=== PATIENT | female | born 1970 | race Caucasian/White ===

== ENCOUNTER 2017-02-07 16:17 | Inpatient (IN) | payer MEDICAID ==
--- NOTE | 2017-02-07 18:34 | EDM.PDOC ---
[id number]: SHARP PAINS IN RIGHT SIDE Time Seen by Provider: 02/07/17 18:31 Source of Information: Reports: Patient History Limitations: Reports: No Limitations - History of Present Illness INITIAL COMMENTS - FREE TEXT/NARRATIVE: pt arrived with pain in the rt upper abdoman. Onset: Gradual, Other ( she has been havung pain in the abdoman for many days, ) Duration: Day(s):, Getting Worse, Other ( today was the worst pain that she has had ) Location: Reports: Abdomen Associated Symptoms: Reports: No Other Symptoms Right Upper Abdomen Pain Score (Numeric/FACES): 10 - Related Data Allergies Allergy/AdvReac Type Severity Reaction Status Date / Time morphine AdvReac Vomiting Verified 02/08/17 08:23 Home Meds: Home Meds Gabapentin [Neurontin] 100 mg PO TID 04/10/16 [History] Ibuprofen 800 mg PO ASDIRECTED 04/10/16 [History] Methylphenidate HCl [Ritalin] 20 mg PO TID 04/10/16 [History] ARIPiprazole [Abilify] 5 mg PO DAILY 07/25/16 [History] EPINEPHrine [Epinephrine] 1 injection [id number] ASDIRECTED PRN 07/25/16 [History] Estradiol 2 mg PO DAILY 07/25/16 [History] buPROPion [Wellbutrin XL] 300 mg PO DAILY 07/25/16 [History] traZODone 50 mg PO BEDTIME PRN 07/25/16 [History] Acetaminophen/HYDROcodone [[place] 325-5 MG] 1 - 2 tab PO Q6H PRN #14 tab [Rx] Nitroglycerin [Nitrostat] 0.3 mg SL ASDIRECTED PRN 02/08/17 [History] Hydrocodone/Acetaminophen [Hydrocodon-Acetaminophen 5-325] 1 each PO Q4H PRN # 20 tablet 02/09/17 [Rx] Pantoprazole Sodium [Protonix] 40 mg PO DAILY #30 tablet. 02/09/17 [Rx] Past Medical History Cardiovascular History: Reports: CAD, High Cholesterol, Hypertension, LA, Other (See Below) Other Cardiovascular History: valve problems atrial [employer] History: Reports: Dysfunctional Uterine Bleeding Musculoskeletal History: Reports: Fibromyalgia Neurological History: Reports: Migraines, MS Psychiatric History: Reports: ADD, ADHD, Anxiety, Depression Hematologic History: Reports: Other (See Below) Other Hematologic History: low WBCs unknown origin - Infectious Disease History Infectious Disease History: Reports: Chicken Pox - Past Surgical History GI Surgical History: Reports: Hernia Repair/Other Female Surgical History: Reports: Section, Hysterectomy Social & Family History - Family History Family Medical History: Noncontributory - Tobacco Use Smoking Status *Q: Never Smoker Second Hand Smoke Exposure: No - Caffeine Use Caffeine Use: Reports: Soda - Recreational Drug Use Recreational Drug Use: No - Living Situation & Occupation Living situation: Reports: Occupation: Employed [employer] - Review of Systems Review Of Systems: See Below Constitutional: Reports: Other (pt has had some chronic pain for the past few days, Todat at work she became very uncomfortable and the pain became intolerable. ) HEENT: Reports: No Symptoms Respiratory: Reports: Other (hurts to take a deep breath when she breathes deeply. ) Cardiovascular: Reports: No Symptoms Endocrine: Reports: No Symptoms GI/Abdominal: Reports: Abdominal Pain, Other (the pain was centered in the rt upper quadrant right under the rib cage. ) : Reports: No Symptoms Musculoskeletal: Reports: No Symptoms Skin: Reports: No Symptoms ED EXAM, GI/ABD - Physical Exam Exam: See Below Text/Narrative:: Pt arrived with very severe pain under the rt diaphram. She was rating her pain at a 10. Exam Limited By: No Limitations General Appearance: Alert, Anxious, Moderate Distress Eyes: Bilateral: Normal Appearance, EOMI Ears: Normal TMs Nose: Normal Inspection Throat/Mouth: Normal Inspection Head: Atraumatic Neck: Normal Inspection Respiratory/Chest: No Respiratory Distress Cardiovascular: Regular Rate, Rhythm GI/Abdominal: Other ( pt is very tender in the rt upper quadrant. No masses are present. ) (Female) Exam: Deferred Rectal (Female) Exam: Deferred Back Exam: Normal Inspection Extremities: Normal Inspection Neurological: Alert, Oriented, Normal Cognition Psychiatric: Normal Affect Course - Vital Signs Last Recorded V/S: Last Vital Signs Temp 36.7 C 02/09/17 10:15 Pulse 65 02/09/17 10:45 Resp 18 02/09/17 10:45 BP 118/68 02/09/17 10:45 Pulse Ox 96 02/09/17 10:45 - Orders/Labs/Meds Labs: Laboratory Tests 0602/07/17 02/07/17 Range/Units 18:31 18:31 18:31 WBC 5.3 (4.5-11.0) K/uL RBC 3.85 (3.30-5.50) M/uL Hgb 10.5 L (12.0-15.0) g/dL Hct 33.9 L (36.0-48.0) % MCV 88 (80-98) fL MCH 27 (27-31) pg MCHC 31 L (32-36) % Plt Count 279 (150-400) K/uL Neut % (Auto) 53 (36-66) % Lymph % (Auto) 29 (24-44) % [place] % (Auto) 10 H (2-6) % Eos % (Auto) 7 H (2-4) % Baso % (Auto) 1 (0-1) % D-Dimer, Quantitative (0.0-400.0) ng/mL Sodium 144 (140-148) mmol/L Potassium 3.7 (3.6-5.2) mmol/L Chloride 107 (100-108) mmol/L Carbon Dioxide 29 (21-32) mmol/L Anion Gap 8.4 (5.0-14.0) mmol/L BUN 14 (7-18) mg/dL Creatinine 1.1 H (0.6-1.0) mg/dL Est Cr Clr Drug Dosing TNP Estimated GFR (MDRD) 54 L (>60) Glucose 76 (74-106) mg/dL Calcium 8.5 (8.5-10.1) mg/dL Total Bilirubin 0.2 (0.2-1.0) mg/dL AST 12 L (15-37) U/L ALT 12 (12-78) U/L Alkaline Phosphatase 113 (46-116) U/L C-Reactive Protein 2.92 H (0.0-0.3) mg/dL Total Protein 7.6 (6.4-8.2) g/dL Albumin 3.1 L (3.4-5.0) g/dL Globulin 4.5 H (2.3-3.5) g/dL Albumin/Globulin Ratio 0.7 L (1.2-2.2) Lipase 145 (73-393) U/L Urine Color Urine Appearance Urine pH (4.5-8.0) Ur Specific [place] (1.008-1.030) Urine Protein (NEGATIVE) mg/dL Urine Glucose (UA) (NEGATIVE) mg/dL Urine Ketones (NEGATIVE) mg/dL Urine Occult Blood (NEGATIVE) Urine Nitrite (NEGATIVE) Urine Bilirubin (NEGATIVE) Urine Urobilinogen (NORMAL) mg/dL Ur Leukocyte Esterase (NEGATIVE) Urine RBC (0-5) Urine WBC (0-5) Ur Epithelial Cells Amorphous Sediment Urine Bacteria Urine Mucus 02/07/17 02/07/17 Range/Units 19:25 22:30 WBC (4.5-11.0) K/uL RBC (3.30-5.50) M/uL Hgb (12.0-15.0) g/dL Hct (36.0-48.0) % MCV (80-98) fL MCH (27-31) pg MCHC (32-36) % Plt Count (150-400) K/uL Neut % (Auto) (36-66) % Lymph % (Auto) (24-44) % Pine % (Auto) (2-6) % Eos % (Auto) (2-4) % Baso % (Auto) (0-1) % D-Dimer, Quantitative 2400 H (0.0-400.0) ng/mL Sodium (140-148) mmol/L Potassium (3.6-5.2) mmol/L Chloride (100-108) mmol/L Carbon Dioxide (21-32) mmol/L Anion Gap (5.0-14.0) mmol/L BUN (7-18) mg/dL Creatinine (0.6-1.0) mg/dL Est Cr Clr Drug Dosing Estimated GFR (MDRD) (>60) Glucose (74-106) mg/dL Calcium (8.5-10.1) mg/dL Total Bilirubin (0.2-1.0) mg/dL AST (15-37) U/L ALT (12-78) U/L Alkaline Phosphatase (46-116) U/L C-Reactive Protein (0.0-0.3) mg/dL Total Protein (6.4-8.2) g/dL Albumin (3.4-5.0) g/dL Globulin (2.3-3.5) g/dL Albumin/Globulin Ratio (1.2-2.2) Lipase (73-393) U/L Urine Color Yellow Urine Appearance Clear Urine pH 6.5 (4.5-8.0) Ur Specific [place] 1.015 (1.008-1.030) Urine Protein Negative (NEGATIVE) mg/dL Urine Glucose (UA) Normal (NEGATIVE) mg/dL Urine Ketones Negative (NEGATIVE) mg/dL Urine Occult Blood Moderate (NEGATIVE) Urine Nitrite Negative (NEGATIVE) Urine Bilirubin Negative (NEGATIVE) Urine Urobilinogen Normal (NORMAL) mg/dL Ur Leukocyte Esterase Negative (NEGATIVE) Urine RBC 0-5 (0-5) Urine WBC 0-5 (0-5) Ur Epithelial Cells Few Amorphous Sediment Not seen Urine Bacteria Moderate Urine Mucus Rare Meds: Medications Discontinued Medications Generic Name Dose Route Start Last Admin Trade Name Freq PRN Reason Stop Dose Admin Acetaminophen 650 mg 02/08/17 02:40 02/08/17 21:39 Tylenol PO 650 mg Q4H PRN Administration Pain (Mild 1-3)/fever Albuterol 2.5 mg 02/08/17 02:40 Proventil Neb Soln NEB Q4H PRN Shortness Of Breath/wheezing Aripiprazole 5 mg 02/08/17 09:00 02/09/17 10:13 Abilify PO 5 mg DAILY DERICK Administration Bupropion HCl 300 mg 02/08/17 09:00 02/09/17 10:13 Wellbutrin Xl PO 300 mg DAILY DERICK Administration Dexamethasone Confirm 02/09/17 08:40 Dexamethasone Administered 02/09/17 08:41 Dose 4 mg .ROUTE .STK-MED ONE Docusate Sodium 100 mg 02/08/17 02:40 Colace PO BID PRN Constipation Estradiol 2 mg 02/08/17 09:00 02/09/17 10:12 Estradiol PO 2 mg DAILY DERICK Administration Fentanyl Confirm 02/09/17 08:27 Sublimaze Administered 02/09/17 08:28 Dose 100 mcg .ROUTE .STK-MED ONE Fentanyl Citrate 0 mcg 02/08/17 09:18 Fentanyl In Ns 20 Mcg/Ml 30 Ml Nursery Hand IV ASDIRECTED PRN Pain Protocol Gabapentin 100 mg 02/08/17 09:00 02/09/17 10:13 Neurontin PO 100 mg TID DERICK Administration Hydromorphone HCl 0.5 mg 02/07/17 18:42 02/07/17 19:27 Dilaudid IVPUSH 02/07/17 18:43 0.5 mg ONETIME ONE Administration Hydromorphone HCl Confirm 02/07/17 19:21 02/08/17 07:34 Dilaudid Administered 02/07/17 19:22 Not Given Dose 1 mg .ROUTE .STK-MED ONE Hydromorphone HCl 0.05 mg 02/07/17 20:44 02/07/17 21:07 Dilaudid IVPUSH 02/07/17 20:45 Not Given ONETIME ONE Hydromorphone HCl 0.5 mg 02/07/17 21:01 02/07/17 21:04 Dilaudid IVPUSH 02/07/17 21:02 0.5 mg ONETIME ONE Administration Hydromorphone HCl 0.5 mg 02/07/17 23:43 02/07/17 23:52 Dilaudid IVPUSH 02/07/17 23:44 0.5 mg ONETIME ONE Administration Hydromorphone HCl 0 mg 02/08/17 02:40 02/08/17 03:29 Dilaudid Nursery Hand 15 Mg In Ns 30 Ml IV 15 mg ASDIRECTED PRN Administration Pain Protocol Sodium Chloride 1,000 mls @ 999 mls/hr 02/07/17 18:45 02/07/17 19:26 Normal Saline IV 999 mls/hr ASDIRECTED DERICK Administration Sodium Chloride 1,000 mls @ 250 mls/hr 02/07/17 20:45 02/07/17 20:59 Normal Saline IV 250 mls/hr ASDIRECTED DERICK Administration Sodium Chloride 80 mls @ 3 mls/sec 02/07/17 21:15 02/07/17 21:23 Normal Saline IV 3 mls/sec ASDIRECTED DERICK Administration Sodium Chloride 100 mls @ 4 mls/sec 02/08/17 00:07 02/08/17 00:17 Normal Saline IV 02/08/17 00:08 4 mls/sec ASDIRECTED STA Administration Sodium Chloride 1,000 mls @ 999 mls/hr 02/08/17 01:15 02/08/17 01:21 Normal Saline IV 999 mls/hr ASDIRECTED DERICK Administration Sodium Chloride 1,000 mls @ 125 mls/hr 02/08/17 02:40 02/08/17 03:13 Normal Saline IV 125 mls/hr ASDIRECTED DERICK Administration Sodium Chloride 1,000 mls @ 75 mls/hr 02/08/17 15:45 Normal Saline IV ASDIRECTED DERICK Iopamidol 123 ml 02/07/17 21:15 02/07/17 21:23 Isovue-300 (61%) IV 123 ml . DIRECTED DERICK Administration Iopamidol 100 ml 02/08/17 00:07 02/08/17 00:17 Isovue-370 (76%) IV 02/08/17 00:08 100 ml . DIRECTED STA Administration Lorazepam 1 mg 02/08/17 02:40 02/08/17 06:25 Ativan IV 1 mg Q6H PRN Administration Nausea/Vomiting/anxiety Lorazepam 1 mg 02/08/17 06:04 Ativan IVPUSH Q6H PRN Anxiety Metoprolol Succinate 25 mg 02/08/17 02:40 Toprol Xl PO ASDIRECTED [facility] Midazolam HCl Confirm 02/09/17 08:28 Versed 1 Mg/Ml Administered 02/09/17 08:29 Dose 2 mg .ROUTE .STK-MED ONE Naloxone HCl 0.4 mg 02/08/17 02:40 Narcan IVPUSH Q2M PRN Respiratory Distress Naloxone HCl 0.4 mg 02/08/17 09:18 Narcan IVPUSH Q2M PRN Respiratory Distress Nitroglycerin 0.4 mg 02/08/17 09:14 Nitrostat SL 02/08/17 09:25 Q5M PRN Chest Pain Non-Formulary Medication 0.3 mg 02/08/17 16:00 Nitroglycerin [Nitrostat] [facility] Ondansetron HCl 4 mg 02/07/17 18:42 02/07/17 19:27 Zofran IVPUSH 02/07/17 18:43 4 mg ONETIME ONE Administration Ondansetron HCl 4 mg 02/07/17 22:29 02/07/17 22:38 Zofran IVPUSH 02/07/17 22:30 4 mg ONETIME ONE Administration Ondansetron HCl 4 mg 02/08/17 02:40 Zofran Odt PO Q6H PRN Nausea able to take PO Ondansetron HCl 4 mg 02/08/17 02:40 02/08/17 07:36 Zofran IV 4 mg Q4H PRN Administration Nausea/Vomiting Ondansetron HCl Confirm 02/09/17 08:40 Zofran Administered 02/09/17 08:41 Dose 4 mg .ROUTE .STK-MED ONE Pantoprazole Sodium 40 mg 02/08/17 09:00 02/08/17 08:57 Protonix Iv IV 40 mg DAILY DERICK Administration Pantoprazole Sodium 40 mg 02/08/17 21:00 02/09/17 09:34 Protonix Iv IV 40 mg Q12H DERICK Administration Propofol Confirm 02/09/17 08:28 Diprivan 20 Ml Administered 02/09/17 08:29 Dose 200 mg .ROUTE .STK-MED ONE Rivaroxaban 10 mg 02/08/17 09:00 02/08/17 08:46 Xarelto PO Not Given DAILY DERICK Trazodone HCl 50 mg 02/08/17 02:40 Trazodone PO BEDTIME PRN Sleep Zolpidem Tartrate 5 mg 02/08/17 02:40 Ambien PO BEDTIME PRN Sleep - Re-Assessments/Exams Free Text/Narrative Re-Assessment/Exam: 02/08/17 01:27 pt was at work today and she developed severe rt upper abdomanal pain. On arrival she was rating the pain a 10. She had a us of the gb and this appeared neg. She had a cat scan of the abdoman which showed a rt pleural effusion a irregular rounded density in the rt lower lobe. There is some rt basilar scarring. The abdoman otherwie appeared neg. A cat scan of the lung did not show pe. It did show the left pleural effusion. Her wbc was not elevated. Her hg was 10.5. Her crp is nearly 3.0. Departure - Departure Time of Disposition: 01:37 Disposition: Admitted As Inpatient 68 Condition: Fair Clinical Impression: Right upper quadrant abdominal pain, Pleural effusion, Anemia - Discharge Information
[2017-02-07] MEDS ORDERED: Ondansetron 4 MG/2 ML SDV IVPUSH ONE ×2 (18:42→22:29)
[2017-02-07] MEDS ORDERED: Sodium Chloride 0.9% 1,000 ML IV SCH ×2 (18:45→20:45)
[2017-02-07] MEDS: HYDROmorphone 1 MG/ML Syringe ONE (19:27)
[2017-02-07] MEDS: HYDROmorphone 0.5 MG/0.5 ML Syringe IVPUSH ONE ×2 (19:27→19:28)
[2017-02-07] MEDS ORDERED: HYDROmorphone 1 MG/ML Syringe IVPUSH ONE ×2 (20:44→23:43)
[2017-02-07] MEDS ORDERED: HYDROmorphone 0.5 MG/0.5 ML Syringe IVPUSH ONE (21:01)
[2017-02-07] MEDS ORDERED: Iopamidol 612 MG/ML 150 ML Bottle IV SCH (21:15)
[2017-02-07] MEDS ORDERED: Sodium Chloride 0.9% 80 ML IV SCH (21:15)
[2017-02-08] MEDS ORDERED: Sodium Chloride 0.9% 100 ML IV STA (00:07)
[2017-02-08] MEDS ORDERED: Iopamidol 755 Mg/ML 100 ML Bottle IV STA (00:07)
[2017-02-08] MEDS ORDERED: Sodium Chloride 0.9% 1,000 ML IV SCH ×3 (01:15→15:45)
[2017-02-08] MEDS ORDERED: Albuterol 0.083% 2.5 MG/3 ML Neb Soln NEB PRN (02:40)
[2017-02-08] MEDS ORDERED: Zolpidem 5 MG Tab PO PRN (02:40)
[2017-02-08] MEDS ORDERED: Docusate Sodium 100 MG Cap PO PRN (02:40)
[2017-02-08] MEDS ORDERED: HYDROmorphone/Normal Saline 15 MG/30 ML PCA IV PRN (02:40)
[2017-02-08] MEDS ORDERED: Naloxone 0.4 MG/ML SDV IVPUSH PRN ×2 (02:40→09:18)
[2017-02-08] MEDS ORDERED: Ondansetron 4 MG Tab.DIS PO PRN (02:40)
[2017-02-08] MEDS ORDERED: traZODone 50 MG Tab PO PRN (02:40)
[2017-02-08] MEDS ORDERED: Metoprolol Succinate 25 MG Tab.ER PO SCH (02:40)
[2017-02-08] MEDS ORDERED: LORazepam 2 MG/ML MDV IV PRN (02:40)
[2017-02-08] MEDS: Ondansetron 4 MG/2 ML SDV IV PRN ×2 (03:13→07:36)
--- NOTE | 2017-02-08 03:23 | PCM.HP ---
H&P History of Present Illness - General Date of Service: 02/07/17 Admit Problem/Dx: Admission Diagnosis/Problem Admission Diagnosis/Problem Abdominal pain Source of Information: Patient, Provider, RN History Limitations: Reports: No Limitations - History of Present Illness Initial Comments - Free Text/Narative: right sided abdominal pain; this is a 46 year old female who reports a sudden onset of right upper abdominal pain. She had a CT scan of abdomen-pelvis which is negative, CT angio of chest negative, labs no acute result. Due to abdominal pain , Mrs. Tara Read will be admitted for Iv fluids, pain management and further monitoring. Patient is agreement with plan of care. Onset of Symptoms: Reports: Today, Sudden Duration of Symptoms: Reports: Constant Location: Reports: Abdomen, Generalized Quality: Reports: Sharp, Stabbing Severity: Severe Improves with: Reports: Medication Worsens with: Reports: None Associated Symptoms: Reports: No Other Symptoms Right Upper Abdomen Pain Score (Numeric/FACES): 10 - Related Data Allergies/Adverse Reactions: Allergies Allergy/AdvReac Type Severity Reaction Status Date / Time morphine Allergy Vomiting Verified 04/10/16 13:14 Home Medications: Home Meds Aspirin [Ecotrin] 81 mg PO DAILY 04/10/16 [History] Gabapentin [Neurontin] 100 mg PO TID 04/10/16 [History] Ibuprofen 800 mg PO ASDIRECTED 04/10/16 [History] Methylphenidate HCl [Ritalin] 20 mg PO TID 04/10/16 [History] Rivaroxaban [Xarelto] 10 mg PO DAILY 04/10/16 [History] ARIPiprazole [Abilify] 5 mg PO DAILY 07/25/16 [History] EPINEPHrine [Epinephrine] 1 injection [id number] ASDIRECTED PRN 07/25/16 [History] Estradiol 2 mg PO DAILY 07/25/16 [History] Metoprolol Succinate [Toprol XL] 25 mg PO ASDIRECTED 07/25/16 [History] Nitroglycerin [Nitrostat] 0.3 mg SL ACDINNER 07/25/16 [History] buPROPion [Wellbutrin XL] 300 mg PO DAILY 07/25/16 [History] traZODone 50 mg PO ASDIRECTED PRN 07/25/16 [History] Acetaminophen/HYDROcodone [[place] 325-5 MG] 1 - 2 tab PO Q6H PRN #14 tab [Rx] Past Medical History Cardiovascular History: Reports: CAD, High Cholesterol, Hypertension, [place], Other (See Below) Other Cardiovascular History: valve problems 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: Dysfunctional 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 Bleeding Musculoskeletal History: Reports: Fibromyalgia Neurological History: Reports: Migraines, MS Psychiatric History: Reports: ADD, ADHD, Anxiety, Depression Hematologic History: Reports: Other (See Below) Other Hematologic History: low WBCs unknown origin - Infectious Disease History Infectious Disease History: Reports: Chicken Pox - Past Surgical History HEENT Surgical History: Reports: None GI Surgical History: Reports: Hernia Repair/Other Female Surgical History: Reports: Section, Hysterectomy Social & Family History - Family History Family Medical History: Noncontributory - Tobacco Use Smoking Status *Q: Never Smoker Second Hand Smoke Exposure: No - Caffeine Use Caffeine Use: Reports: Soda - Recreational Drug Use Recreational Drug Use: No - Living Situation & Occupation Living situation: Reports: Occupation: Employed H&P Review of Systems - Review of Systems: Review Of Systems: See Below General: Reports: No Symptoms HEENT: Reports: No Symptoms Pulmonary: Reports: No Symptoms Cardiovascular: Reports: No Symptoms Gastrointestinal: Reports: Abdominal Pain Genitourinary: Reports: No Symptoms Musculoskeletal: Reports: No Symptoms Skin: Reports: No Symptoms Psychiatric: Reports: No Symptoms Neurological: Reports: No Symptoms Hematologic/Lymphatic: Reports: No Symptoms Immunologic: Reports: No Symptoms Exam - Exam Exam: See Below - Vital Signs Vital Signs: Last Vital Signs Temp 36.5 C 02/08/17 02:39 Pulse 77 02/08/17 02:39 Resp 18 02/08/17 02:39 BP 109/63 02/08/17 02:39 Pulse Ox 94 L 02/08/17 00:10 Weight: 96.026 kg - Exam General: Alert, Oriented, 4 HEENT: PERRLA, Hearing Intact, Mucosa Moist & [place], Nares Patent, Normal Nasal Septum, Posterior Pharynx Clear, Conjunctiva Clear, EOMI, EACs Clear, TMs Clear Neck: Supple, Trachea Midline, 2 Lungs: Clear to Auscultation, Normal Respiratory Effort Cardiovascular: Regular Rate, Regular Rhythm Abdomen: Normal Bowel Sounds, Soft, Tenderness (right upper quadrant) (Female) Exam: Deferred Rectal (Female) Exam: Deferred Back Exam: Normal Inspection, Full Range of Motion, NT Extremities: 3, Normal Inspection, 10 Skin: Warm, Dry, Intact Neurological: Cranial Nerves Intact, Reflexes Equal Bilateral Neuro Extensive - Mental Status: Alert, Oriented x3, Normal Mood/Affect, Normal Cognition Neuro Extensive - Motor, Sensory, Reflexes: CN II-XII Intact, Normal Gait, Normal Reflexes Psychiatric: Alert, Normal Affect, Normal Mood - Patient Data Lab Results Last 24 hrs: Laboratory Results - last 24 hr 02/08/17 Range/Units 02:40 Urine Opiates Screen Negative (NEGATIVE) Ur Oxycodone Screen Negative (NEGATIVE) Urine Methadone Screen Negative (NEGATIVE) Ur Propoxyphene Screen Negative (NEGATIVE) Ur Barbiturates Screen Negative (NEGATIVE) Ur Tricyclics Screen Negative (NEGATIVE) Ur Phencyclidine Scrn Negative (NEGATIVE) Ur Amphetamine Screen Negative (NEGATIVE) U Methamphetamines Scrn Negative (NEGATIVE) Urine MDMA Screen Negative (NEGATIVE) U Benzodiazepines Scrn Negative (NEGATIVE) U Cocaine Metab Screen Negative (NEGATIVE) U Marijuana (THC) Screen Negative (NEGATIVE) Result Diagrams: 02/07/17 18:31 02/07/17 18:31 *Q Meaningful Use (ADM) - VTE *Q VTE Criteria *Q: - Stroke *Q Stroke Criteria *Q: - AMI *Q AMI Criteria *Q: - Problem List (1) Pleural effusion SNOMED Code(s): 15451904 ICD Code: J90 - PLEURAL EFFUSION, NOT ELSEWHERE CLASSIFIED Status: Acute Priority: Medium Current Visit: Yes (2) Right upper quadrant abdominal pain SNOMED Code(s): 986171810 ICD Code: R10.11 - RIGHT UPPER QUADRANT PAIN Status: Acute Priority: High Current Visit: Yes Problem List Initiated/Reviewed/Updated: Yes Orders Last 24hrs: Active Orders 24 hr Category Date Time Status Patient Status [ADT] Routine ADT 02/08/17 02:40 Active Communication Order [RC] STAT Care 02/08/17 02:40 Active Intake and Output [RC] QSHIFT Care 02/08/17 02:40 Active Notify Provider Vital Signs [RC] ASDIRECTED Care 02/08/17 02:40 Active Notify Provider [RC] PRN Care 02/08/17 02:40 Active Oxygen Therapy [RC] PRN Care 02/08/17 02:40 Active ARMHOLE SEWER Record [RC] PER UNIT ROUTINE Care 02/08/17 02:40 Active Pulse Oximetry [RC] CONTINUOUS Care 02/08/17 02:40 Active RT Aerosol Therapy [RC] ASDIRECTED Care 02/08/17 02:40 Active Up ad Helen [RC] ASDIRECTED Care 02/08/17 02:40 Active VTE/DVT Education [RC] Per Unit Routine Care 02/08/17 02:40 Active Vital Signs [RC] Q4H Care 02/08/17 02:40 Active OT Evaluation and Treatment [CONS] Routine Cons 02/08/17 02:40 Active Regular Diet [DIET] Diet 02/08/17 Breakfast Active BASIC METABOLIC PANEL,BMP [CHEM] AM Lab 02/08/17 05:11 Ordered CBC WITH AUTO DIFF [HEME] AM Lab 02/08/17 05:11 Ordered LACTIC ACID [CHEM] AM Lab 02/08/17 05:11 Ordered ARIPiprazole [Abilify] Med 02/08/17 09:00 Ordered 5 mg PO DAILY Acetaminophen [Tylenol] Med 02/08/17 02:40 Active 650 mg PO Q4H PRN Albuterol [Proventil Neb Soln] Med 02/08/17 02:40 Active 2.5 mg NEB Q4H PRN Docusate Sodium [Colace] Med 02/08/17 02:40 Active 100 mg PO BID PRN Estradiol [Estradiol] Med 02/08/17 09:00 Ordered 2 mg PO DAILY Gabapentin [Neurontin] Med 02/08/17 09:00 Ordered 100 mg PO TID HYDROmorphone/Normal Saline [Dilaudid ARMHOLE SEWER 15 MG in NS Med 02/08/17 02:40 Active 30 ML] See Protocol IV ASDIRECTED PRN LORazepam [Ativan] Med 02/08/17 02:40 Active 1 mg IV Q6H PRN Metoprolol Succinate [Toprol XL] Med 02/08/17 02:40 Pending 25 mg PO ASDIRECTED Naloxone [Narcan] Med 02/08/17 02:40 Active 0.4 mg IVPUSH Q2M PRN Nitroglycerin [Nitrostat] Med 02/08/17 16:00 Pending 0.3 mg SL ACDINNER Ondansetron [Zofran ODT] Med 02/08/17 02:40 Active 4 mg PO Q6H PRN Ondansetron [Zofran] Med 02/08/17 02:40 Active 4 mg IV Q4H PRN Pantoprazole [ProTONIX IV] Med 02/08/17 09:00 Active 40 mg IV DAILY Rivaroxaban [Xarelto] Med 02/08/17 09:00 Ordered 10 mg PO DAILY Sodium Chloride 0.9% [Normal Saline] 1,000 ml Med 02/08/17 02:40 Active IV ASDIRECTED Zolpidem [Ambien] Med 02/08/17 02:40 Active 5 mg PO BEDTIME PRN buPROPion [Wellbutrin XL] Med 02/08/17 09:00 Ordered 300 mg PO DAILY traZODone Med 02/08/17 02:40 Pending 50 mg PO ASDIRECTED PRN Medication Discontinuation Instructions [OM.PC] Stat Oth 02/08/17 02:40 Ordered Sequential Compression Device [OM.PC] Per Unit Routine Oth 02/08/17 02:40 Ordered Resuscitation Status Routine Resus Stat 02/08/17 02:00 Ordered Medication Orders Acetaminophen (Tylenol) 650 mg PO Q4H PRN PRN Reason: Pain (Mild 1-3)/fever Albuterol (Proventil Neb Soln) 2.5 mg NEB Q4H PRN PRN Reason: Shortness Of Breath/wheezing Docusate Sodium (Colace) 100 mg PO BID PRN PRN Reason: Constipation Gabapentin (Neurontin) 100 mg PO TID [facility] Hydromorphone HCl (Dilaudid Arts Education Teacher 15 Mg In Ns 30 Ml) 0 mg IV ASDIRECTED PRN; Protocol PRN Reason: Pain Sodium Chloride (Normal Saline) 1,000 mls @ 125 mls/hr IV ASDIRECTED [facility] Last Admin: 02/08/17 03:13 Dose: 125 mls/hr Lorazepam (Ativan) 1 mg IV Q6H PRN PRN Reason: Nausea/Vomiting Metoprolol Succinate (Toprol Xl) 25 mg PO ASDIRECTED [facility] Naloxone HCl (Narcan) 0.4 mg IVPUSH Q2M PRN PRN Reason: Respiratory Distress Non-Formulary Medication (Aripiprazole [Abilify]) 5 mg PO DAILY [facility] Non-Formulary Medication (Estradiol [Estradiol]) 2 mg PO DAILY [facility] Non-Formulary Medication (Nitroglycerin [Nitrostat]) 0.3 mg SL ACDINNER [facility] Non-Formulary Medication (Bupropion [Wellbutrin Xl]) 300 mg PO DAILY [facility] Ondansetron HCl (Zofran Odt) 4 mg PO Q6H PRN PRN Reason: Nausea able to take PO Ondansetron HCl (Zofran) 4 mg IV Q4H PRN PRN Reason: Nausea/Vomiting Last Admin: 02/08/17 03:13 Dose: 4 mg Pantoprazole Sodium (Protonix Iv) 40 mg IV DAILY [facility] Rivaroxaban (Xarelto) 10 mg PO DAILY [facility] Trazodone HCl (Trazodone) 50 mg PO ASDIRECTED PRN PRN Reason: Sleep Zolpidem Tartrate (Ambien) 5 mg PO BEDTIME PRN PRN Reason: Sleep Assessment/Plan Comment:: Assessment and plan of care: right sided abdominal pain; this is a 46 year old female who reports a sudden onset of right upper abdominal pain. She had a CT scan of abdomen-pelvis which is negative, CT angio of chest negative, labs no acute result. Due to abdominal pain , Mrs. Tara Read will be admitted for Iv fluids, pain management and further monitoring. Patient is agreement with plan of care. Plan Abdominal pain; right upper quadrant -Admit to [address] [place] [address] for further monitoring -IV Fluids for rehydration NS at 125 mL per hour -Dilaudid ARMHOLE SEWER for pain control -Advise to notify nurses of any chest pain or other symptoms -blood cultures x2 pending -And a.m. labs: CBC, BMP, lactic acid. Maintenance issues -Orders home meds: -Nutrition: Regular diet -Villegas catheter not indicated at this time -DVT: SCD -PPI; IV Protonix 40mg daily CODE STATUS: Full Admission status: Admit to [address] [place] [address] Admission justification. This patient will be admitted for inpatient services and is medically appropriate meeting medical necessity for inpatient admission as outlined in my documentation. I reasonably expect the patient will require inpatient services that span. Time over 2 midnights. I reasonably expect this patient to be discharged or transferred within 96 hours after admission to the critical access hospital. Disposition; home Primary care provider: [place], [place].
[2017-02-08] MEDS ORDERED: LORazepam 2 MG/ML MDV IVPUSH PRN (06:04)
[2017-02-08] MEDS: HYDROmorphone 1 MG/ML Syringe ONE (07:34)
--- NOTE | 2017-02-08 07:45 | PCM.SN ---
- Free Text/Narrative Note: time 5:58 am concerns of nausea, request different anti-nausea medication a; nausea p; order IV Ativan 1 mg every 6 hour prn. continue present plan of care
[2017-02-08] MEDS: Gabapentin 100 MG Cap PO SCH ×3 (08:46→21:39)
[2017-02-08] MEDS: buPROPion 150 MG Tab.ER PO SCH (08:46)
[2017-02-08] MEDS: Estradiol 0.5 MG Tab PO SCH (08:46)
[2017-02-08] MEDS: ARIPiprazole 10 MG Tab PO SCH (08:46)
--- NOTE | 2017-02-08 08:49 | CR ---
Chest 2V INDICATION: pain in rt chest FINDINGS: Comparison 07/25/2016. New small right pleural effusion has developed since 07/25/2016. Mi ld infiltrate or atelectasis in the right lower lung medially. Correlate with CT report.
--- NOTE | 2017-02-08 08:50 | US ---
Abdomen Ltd INDICATION: pain in rt upper abdoman. FINDINGS: Normal hepatic echotexture. No intra- or extrahepatic bile duct dilatation. The gallbladde r is normal. Aorta and IVC are normal where visualized. Pancreas is normal where seen. Survey views of the right kidney are negative for hydronephrosis. IMPRESSION: Negative right upper quadrant ultrasound.
[2017-02-08] MEDS ORDERED: Rivaroxaban 10 MG Tab PO SCH (09:00)
[2017-02-08] MEDS ORDERED: Pantoprazole 40 MG Vial IV SCH (09:00)
[2017-02-08] MEDS ORDERED: Nitroglycerin 0.4 MG Tab.SL SL PRN (09:14)
[2017-02-08] MEDS ORDERED: fentaNYL/Normal Saline 600 MCG/30 ML PCA Vial IV PRN (09:18)
[2017-02-08] MEDS: Acetaminophen 325 MG Tab PO PRN ×2 (10:53→21:39)
--- NOTE | 2017-02-08 15:52 | PCM.PN ---
- General Info Date of Service: 02/08/17 Functional Status: Reports: pain controlled, ambulating, urinating - Review of Systems General: Denies: Fever, Weakness, Chills Pulmonary: Reports: no symptoms Cardiovascular: Reports: No Symptoms Gastrointestinal: Reports: Abdominal pain, Nausea, Vomiting. Denies: Diarrhea, Difficulty swallowing Systems Review Comment:: Ms. Pacheco is a 46-year-old woman was admitted through the emergency department last night for further evaluation and management of right upper quadrant abdominal pain associated with nausea and vomiting. Pain is been present over the past several months occurring several times a week. Pain is described as a sharp pain occurring in the right upper quadrant of her abdomen does not radiate and when it occurs usually lasts for a period of 2 hours. She has been unable to relate the pain to eating activity or position. She has noted no real precipitating or relieving factors. It has improved since admission but not resolved, she is had some ongoing difficulty with nausea and vomiting felt to be related to the Dilaudid for pain. CT scan of the abdomen as well as abdominal ultrasound are negative as to the underlying etiology of her pain. - Patient Data Vitals - most recent: Last Vital Signs Temp 97.7 F 02/08/17 14:28 Pulse 70 02/08/17 14:28 Resp 18 02/08/17 14:28 BP 112/62 02/08/17 14:28 Pulse Ox 95 02/08/17 14:28 Weight - most recent: 211 lb 11.217 oz I&O - last 24 hours: Intake & Output 02/08/17 02/08/17 02/08/17 06:59 14:59 22:59 Intake Total 319 Output Total 650 300 Balance -331 -300 Lab Results last 24 hrs: Laboratory Results - last 24 hr 02/08/17 02/08/17 02/08/17 Range/Units 02:40 05:11 05:11 WBC 4.8 (4.5-11.0) K/uL RBC 3.63 (3.30-5.50) M/uL Hgb 10.0 L (12.0-15.0) g/dL Hct 32.1 L (36.0-48.0) % MCV 88 (80-98) fL MCH 28 (27-31) pg MCHC 31 L (32-36) % Plt Count 235 (150-400) K/uL Neut % (Auto) 57 (36-66) % Lymph % (Auto) 24 (24-44) % [place] % (Auto) 11 H (2-6) % Eos % (Auto) 8 H (2-4) % Baso % (Auto) 1 (0-1) % Sodium 145 (140-148) mmol/L Potassium 3.9 (3.6-5.2) mmol/L Chloride 111 H (100-108) mmol/L Carbon Dioxide 27 (21-32) mmol/L Anion Gap 10.9 (5.0-14.0) mmol/L BUN 9 (7-18) mg/dL Creatinine 1.0 (0.6-1.0) mg/dL Est Cr Clr Drug Dosing 72.42 mL/min Estimated GFR (MDRD) > 60 (>60) Glucose 105 (74-106) mg/dL Lactic Acid (0.4-2.0) mmol/L Calcium 7.8 L (8.5-10.1) mg/dL Urine Opiates Screen Negative (NEGATIVE) Ur Oxycodone Screen Negative (NEGATIVE) Urine Methadone Screen Negative (NEGATIVE) Ur Propoxyphene Screen Negative (NEGATIVE) Ur Barbiturates Screen Negative (NEGATIVE) Ur Tricyclics Screen Negative (NEGATIVE) Ur Phencyclidine Scrn Negative (NEGATIVE) Ur Amphetamine Screen Negative (NEGATIVE) U Methamphetamines Scrn Negative (NEGATIVE) Urine MDMA Screen Negative (NEGATIVE) U Benzodiazepines Scrn Negative (NEGATIVE) U Cocaine Metab Screen Negative (NEGATIVE) U Marijuana (THC) Screen Negative (NEGATIVE) 02/08/17 Range/Units 05:11 WBC (4.5-11.0) K/uL RBC (3.30-5.50) M/uL Hgb (12.0-15.0) g/dL Hct (36.0-48.0) % MCV (80-98) fL MCH (27-31) pg MCHC (32-36) % Plt Count (150-400) K/uL Neut % (Auto) (36-66) % Lymph % (Auto) (24-44) % [place] % (Auto) (2-6) % Eos % (Auto) (2-4) % Baso % (Auto) (0-1) % Sodium (140-148) mmol/L Potassium (3.6-5.2) mmol/L Chloride (100-108) mmol/L Carbon Dioxide (21-32) mmol/L Anion Gap (5.0-14.0) mmol/L BUN (7-18) mg/dL Creatinine (0.6-1.0) mg/dL Est Cr Clr Drug Dosing mL/min Estimated GFR (MDRD) (>60) Glucose (74-106) mg/dL Lactic Acid 0.4 (0.4-2.0) mmol/L Calcium (8.5-10.1) mg/dL Urine Opiates Screen (NEGATIVE) Ur Oxycodone Screen (NEGATIVE) Urine Methadone Screen (NEGATIVE) Ur Propoxyphene Screen (NEGATIVE) Ur Barbiturates Screen (NEGATIVE) Ur Tricyclics Screen (NEGATIVE) Ur Phencyclidine Scrn (NEGATIVE) Ur Amphetamine Screen (NEGATIVE) U Methamphetamines Scrn (NEGATIVE) Urine MDMA Screen (NEGATIVE) U Benzodiazepines Scrn (NEGATIVE) U Cocaine Metab Screen (NEGATIVE) U Marijuana (THC) Screen (NEGATIVE) Med Orders - Current: Current Medications Acetaminophen (Tylenol) 650 mg PO Q4H PRN PRN Reason: Pain (Mild 1-3)/fever Last Admin: 02/08/17 10:53 Dose: 650 mg Albuterol (Proventil Neb Soln) 2.5 mg NEB Q4H PRN PRN Reason: Shortness Of Breath/wheezing Aripiprazole (Abilify) 5 mg PO DAILY [facility] Last Admin: 02/08/17 08:46 Dose: Not Given Bupropion HCl (Wellbutrin Xl) 300 mg PO DAILY [facility] Last Admin: 02/08/17 08:46 Dose: Not Given Docusate Sodium (Colace) 100 mg PO BID PRN PRN Reason: Constipation Estradiol (Estradiol) 2 mg PO DAILY [facility] Last Admin: 02/08/17 08:46 Dose: Not Given Fentanyl Citrate (Fentanyl In Ns 20 Mcg/Ml 30 Ml Wharf Laborer) 0 mcg IV ASDIRECTED PRN; Protocol PRN Reason: Pain Gabapentin (Neurontin) 100 mg PO TID [facility] Last Admin: 02/08/17 14:22 Dose: Not Given Sodium Chloride (Normal Saline) 1,000 mls @ 75 mls/hr IV ASDIRECTED [facility] Lorazepam (Ativan) 1 mg IV Q6H PRN PRN Reason: Nausea/Vomiting/anxiety Last Admin: 02/08/17 06:25 Dose: 1 mg Naloxone HCl (Narcan) 0.4 mg IVPUSH Q2M PRN PRN Reason: Respiratory Distress Naloxone HCl (Narcan) 0.4 mg IVPUSH Q2M PRN PRN Reason: Respiratory Distress Ondansetron HCl (Zofran Odt) 4 mg PO Q6H PRN PRN Reason: Nausea able to take PO Ondansetron HCl (Zofran) 4 mg IV Q4H PRN PRN Reason: Nausea/Vomiting Last Admin: 02/08/17 07:36 Dose: 4 mg Pantoprazole Sodium (Protonix Iv) 40 mg IV Q12H [facility] Rivaroxaban (Xarelto) 10 mg PO DAILY [facility] Last Admin: 02/08/17 08:46 Dose: Not Given Trazodone HCl (Trazodone) 50 mg PO BEDTIME PRN PRN Reason: Sleep Zolpidem Tartrate (Ambien) 5 mg PO BEDTIME PRN PRN Reason: Sleep Discontinued Medications Hydromorphone HCl (Dilaudid) 0.5 mg IVPUSH ONETIME ONE Stop: 02/07/17 18:43 Last Admin: 02/07/17 19:27 Dose: 0.5 mg Hydromorphone HCl (Dilaudid) Confirm Administered Dose 1 mg .ROUTE .STK-MED ONE Stop: 02/07/17 19:22 Last Admin: 02/08/17 07:34 Dose: Not Given Hydromorphone HCl (Dilaudid) 0.05 mg IVPUSH ONETIME ONE Stop: 02/07/17 20:45 Last Admin: 02/07/17 21:07 Dose: Not Given Hydromorphone HCl (Dilaudid) 0.5 mg IVPUSH ONETIME ONE Stop: 02/07/17 21:02 Last Admin: 02/07/17 21:04 Dose: 0.5 mg Hydromorphone HCl (Dilaudid) 0.5 mg IVPUSH ONETIME ONE Stop: 02/07/17 23:44 Last Admin: 02/07/17 23:52 Dose: 0.5 mg Hydromorphone HCl (Dilaudid Wharf Laborer 15 Mg In Ns 30 Ml) 0 mg IV ASDIRECTED PRN; Protocol PRN Reason: Pain Last Admin: 02/08/17 03:29 Dose: 15 mg Sodium Chloride (Normal Saline) 1,000 mls @ 999 mls/hr IV ASDIRECTED [facility] Last Admin: 02/07/17 19:26 Dose: 999 mls/hr Sodium Chloride (Normal Saline) 1,000 mls @ 250 mls/hr IV ASDIRECTED [facility] Last Admin: 02/07/17 20:59 Dose: 250 mls/hr Sodium Chloride (Normal Saline) 80 mls @ 3 mls/sec IV ASDIRECTED [facility] Last Admin: 02/07/17 21:23 Dose: 3 mls/sec Sodium Chloride (Normal Saline) 100 mls @ 4 mls/sec IV ASDIRECTED [facility] Stop: 02/08/17 00:08 Last Admin: 02/08/17 00:17 Dose: 4 mls/sec Sodium Chloride (Normal Saline) 1,000 mls @ 999 mls/hr IV ASDIRECTED [facility] Last Admin: 02/08/17 01:21 Dose: 999 mls/hr Sodium Chloride (Normal Saline) 1,000 mls @ 125 mls/hr IV ASDIRECTED [facility] Last Admin: 02/08/17 03:13 Dose: 125 mls/hr Iopamidol (Isovue-300 (61%)) 123 ml IV . DIRECTED [facility] Last Admin: 02/07/17 21:23 Dose: 123 ml Iopamidol (Isovue-370 (76%)) 100 ml IV . DIRECTED STA Stop: 02/08/17 00:08 Last Admin: 02/08/17 00:17 Dose: 100 ml Lorazepam (Ativan) 1 mg IVPUSH Q6H PRN PRN Reason: Anxiety Metoprolol Succinate (Toprol Xl) 25 mg PO ASDIRECTED [facility] Nitroglycerin (Nitrostat) 0.4 mg SL Q5M PRN PRN Reason: Chest Pain Stop: 02/08/17 09:25 Non-Formulary Medication (Nitroglycerin [Nitrostat]) 0.3 mg SL ACDINNER [facility] Ondansetron HCl (Zofran) 4 mg IVPUSH ONETIME ONE Stop: 02/07/17 18:43 Last Admin: 02/07/17 19:27 Dose: 4 mg Ondansetron HCl (Zofran) 4 mg IVPUSH ONETIME ONE Stop: 02/07/17 22:30 Last Admin: 02/07/17 22:38 Dose: 4 mg Pantoprazole Sodium (Protonix Iv) 40 mg IV DAILY [facility] Last Admin: 02/08/17 08:57 Dose: 40 mg - Exam Quality Assessment: supplemental oxygen, DVT prophylaxis General: alert, oriented, cooperative, mild distress Lungs: Clear to auscultation, Normal respiratory effort Cardiovascular: Regular Rate, Regular Rhythm, No Murmurs Abdomen: bowel sounds present, soft, no distension, tenderness. No: rigidity, rebound, guarding Extremities: no edema Skin: warm, dry, intact - Problem List Review Problem List Initiated/Reviewed/Updated: Yes - My Orders Last 24 Hours: My Active Orders 02/08/17 09:18 Naloxone [Narcan] 0.4 mg IVPUSH Q2M PRN fentaNYL/Normal Saline [fentaNYL in NS 20 MCG/ML 30 ML ROUTER TENDER] See Protocol IV ASDIRECTED PRN 02/08/17 15:37 Consult to Physician [CONS] Routine 02/08/17 15:40 Notify Provider Consults [RC] ASDIRECTED 02/08/17 15:45 Sodium Chloride 0.9% @ 75 MLS/HR(1000ml) Sodium Chloride 0.9% [Normal Saline] 1 ,000 ml IV ASDIRECTED 02/08/17 21:00 Pantoprazole [ProTONIX IV] 40 mg IV Q12H 02/08/17 Dinner Nothing per Oral After Midnight Diet [DIET] 02/08/17 Lunch Clear Liquid Diet [DIET] 02/09/17 05:00 CBC WITH AUTO DIFF [HEME] Timed COMPREHENSIVE METABOLIC PN,CMP [CHEM] Timed 02/09/17 05:11 CRP [C-REACTIVE PROTEIN] [CHEM] AM - Plan Plan:: ASSESSMENT AND PLAN Abdominal pain; right upper quadrant-likely secondary to ulcer disease, gastritis, versus poorly functioning gallbladder -Admit to [address] [place] [address] for further monitoring -IV Fluids for rehydration NS at 75 mL per hour -Fentanyl ROUTER TENDER for pain control -Advise to notify nurses of any chest pain or other symptoms -blood cultures x2 pending -Recheck labs in a.m. CBC and CMP -Protonix 40 mg IV every 12 hours -Consult Dr. Kumar for EGD in a.m. -If EGD is unremarkable proceed with outpatient CCK stimulated HIDA scan early next week Maintenance issues -Orders home meds: -Nutrition: Regular diet -Villegas catheter not indicated at this time -DVT: SCD -PPI; IV Protonix 40mg daily CODE STATUS: Full Admission status: Admit to [address] [place] [address] Admission justification. This patient will be admitted for inpatient services and is medically appropriate meeting medical necessity for inpatient admission as outlined in my documentation. I reasonably expect the patient will require inpatient services that span. Time over 2 midnights. I reasonably expect this patient to be discharged or transferred within 96 hours after admission to the [facility]. Disposition; home Primary care provider: [facility] [place], [place].
[2017-02-08] MEDS ORDERED: NITROGLYCERIN 0.3 MG SL SCH (16:00)
[2017-02-08] MEDS: Pantoprazole 40 MG Vial IV SCH (21:43)
[2017-02-09] MEDS ORDERED: fentaNYL 100 MCG/2 ML SDV ONE (08:27)
[2017-02-09] MEDS ORDERED: Propofol 200 MG/20 ML SDV ONE (08:28)
[2017-02-09] MEDS ORDERED: Midazolam 1 MG/ML 2 ML SDV ONE (08:28)
[2017-02-09] MEDS ORDERED: Ondansetron 4 MG/2 ML SDV ONE (08:40)
[2017-02-09] MEDS ORDERED: Dexamethasone 4 MG/ML SDV ONE (08:40)
[2017-02-09] MEDS: Pantoprazole 40 MG Vial IV SCH (09:34)
[2017-02-09] MEDS: Estradiol 0.5 MG Tab PO SCH (10:12)
[2017-02-09] MEDS: ARIPiprazole 10 MG Tab PO SCH (10:13)
[2017-02-09] MEDS: Gabapentin 100 MG Cap PO SCH (10:13)
[2017-02-09] MEDS: buPROPion 150 MG Tab.ER PO SCH (10:13)
[2017-02-09 10:53] VITALS: BP 118/68
--- NOTE | 2017-02-09 11:42 | PCM.DCSUM1 ---
Discharge Summary - Hospital Course Brief History: This patient is a 46-year-old woman who was admitted for further evaluation of severe right upper quadrant abdominal pain associated with nausea and vomiting. - Discharge Data Discharge Date: 02/09/17 Discharge Disposition: Home, Self-Care 01 Condition: Fair - Discharge Diagnosis/Problem(s) (1) Nausea & vomiting SNOMED Code(s): 90593791 ICD Code: R11.2 - NAUSEA WITH VOMITING, UNSPECIFIED Status: Acute Current Visit: Yes (2) Right upper quadrant abdominal pain SNOMED Code(s): 089518402 ICD Code: R10.11 - RIGHT UPPER QUADRANT PAIN Status: Acute Priority: High Current Visit: Yes - Patient Summary/Data Consults: Consultations 02/08/17 02:40 OT Evaluation and Treatment [CONS] Routine Please Evaluate and Treat. OT Reason for Consult: Discharge Planning This query below is only for informational purposes and is not editable. 02/08/17 15:37 Consult to Physician [CONS] Routine Consulting Provider: Buddy Kumar Call Completed to Consulting Physician: Yes Reason for Consult: RUFernando Abd Pain, EGD in am Hospital Course: This patient is a 46-year-old woman who has had symptoms of right upper quadrant abdominal pain over the past few months. Initially pain would occur a few times a week, but over time pain is been present almost on a daily basis over the past 2 weeks. On the day of admission experienced severe pain in the right upper quadrant that did not resolve visit usually does after a few hours. The pain is described as a sharp ache in the right upper quadrant, it does not radiate in his symptoms moderate to severe intensity. She denied any precipitating or relieving factors. On evaluation in emergency department white blood cell count was within normal range, CT scan of the abdomen and abdominal ultrasound were unremarkable as to specific cause. She was admitted to the hospital and given pain medication, antiemetic therapy, IV fluids, and PPI therapy. She was seen and evaluated by Dr. Kumar for surgical consult and EGD was performed on the day of discharge. EGD showed only mild gastritis and esophagitis and was not felt to be the likely cause of her ongoing symptoms. She will be discharged home on oral PPI therapy because of the mild gastritis. By the time of discharge her pain did improve significantly but had not totally resolved. She had no further nausea or vomiting. She will be discharged home on a clear liquid diet with pain medication as needed. Activity will be as tolerated. She will be scheduled for a CCK stimulated HIDA scan on February 11 and a follow-up appointment with Dr. Kumar on February 12. We will hold her Elequis and aspirin until she seen by Dr. Kumar. If surgery is not warranted she should resume Elequis and aspirin on Saturday. If surgery is required these medications should be held until Dr. Kumar feels that they' re safe to resume them following surgery. - Patient Instructions Diet: Clear Liquid Diet Activity: As Tolerated Other/Special Instructions: Schedule CCK stimulated HIDA scan for February 11. Please schedule follow-up appointment with Dr. Kumar on February 12. - Discharge Plan Prescriptions/Med Rec: Hydrocodone/Acetaminophen [Hydrocodon-Acetaminophen 5-325] 1 each PO Q4H PRN # 20 tablet PRN Reason: Pain Pantoprazole Sodium [Protonix] 40 mg PO DAILY #30 tablet. Home Medications: Home Meds Gabapentin [Neurontin] 100 mg PO TID 04/10/16 [History] Ibuprofen 800 mg PO ASDIRECTED 04/10/16 [History] Methylphenidate HCl [Ritalin] 20 mg PO TID 04/10/16 [History] ARIPiprazole [Abilify] 5 mg PO DAILY 07/25/16 [History] EPINEPHrine [Epinephrine] 1 injection SUBCNJ ASDIRECTED PRN 07/25/16 [History] Estradiol 2 mg PO DAILY 07/25/16 [History] buPROPion [Wellbutrin XL] 300 mg PO DAILY 07/25/16 [History] traZODone 50 mg PO BEDTIME PRN 07/25/16 [History] Acetaminophen/HYDROcodone [[place] 325-5 MG] 1 - 2 tab PO Q6H PRN #14 tab [Rx] Nitroglycerin [Nitrostat] 0.3 mg SL ASDIRECTED PRN 02/08/17 [History] Hydrocodone/Acetaminophen [Hydrocodon-Acetaminophen 5-325] 1 each PO Q4H PRN # 20 tablet 02/09/17 [Rx] Pantoprazole Sodium [Protonix] 40 mg PO DAILY #30 tablet. 02/09/17 [Rx] Referrals: Anderson Galicia [Other] - 02/11/17 7:30 am (Please arrive 15 minutes prior to appointment time. Nothing to eat or drink after midnight.) Buddy Kumar MD [Physician] - 02/12/17 (Clinic will call you on Saturday with a time for appointment with Dr. Kumar for Saturday. ) - Patient Data Vitals - Most Recent: Last Vital Signs Temp 98.1 F 02/09/17 10:15 Pulse 65 02/09/17 10:45 Resp 18 02/09/17 10:45 BP 118/68 02/09/17 10:45 Pulse Ox 96 02/09/17 10:45 Weight - Most Recent: 211 lb 11.217 oz I&O - Last 24 hours: Intake & Output 02/08/17 02/09/17 02/09/17 22:59 06:59 14:59 Intake Total 2050 868 Output Total 400 600 Balance 1650 268 Lab Results - Last 24 hrs: Laboratory Results - last 24 hr 02/09/17 02/09/17 02/09/17 Range/Units 05:00 05:00 05:11 WBC 4.4 L (4.5-11.0) K/uL RBC 3.53 (3.30-5.50) M/uL Hgb 10.0 L (12.0-15.0) g/dL Hct 31.9 L (36.0-48.0) % MCV 90 (80-98) fL MCH 28 (27-31) pg MCHC 31 L (32-36) % Plt Count 89 L (150-400) K/uL Neut % (Auto) 55 (36-66) % Lymph % (Auto) 27 (24-44) % [place] % (Auto) 9 H (2-6) % Eos % (Auto) 8 H (2-4) % Baso % (Auto) 1 (0-1) % Sodium 146 (140-148) mmol/L Potassium 4.2 (3.6-5.2) mmol/L Chloride 113 H (100-108) mmol/L Carbon Dioxide 27 (21-32) mmol/L Anion Gap 10.2 (5.0-14.0) mmol/L BUN 6 L (7-18) mg/dL Creatinine 1.0 (0.6-1.0) mg/dL Est Cr Clr Drug Dosing 72.71 mL/min Estimated GFR (MDRD) > 60 (>60) Glucose 94 (74-106) mg/dL Calcium 8.1 L (8.5-10.1) mg/dL Total Bilirubin 0.2 (0.2-1.0) mg/dL AST 13 L (15-37) U/L ALT 10 L (12-78) U/L Alkaline Phosphatase 85 (46-116) U/L C-Reactive Protein 2.76 H (0.0-0.3) mg/dL Total Protein 6.3 L (6.4-8.2) g/dL Albumin 2.4 L (3.4-5.0) g/dL Globulin 3.9 H (2.3-3.5) g/dL Albumin/Globulin Ratio 0.6 L (1.2-2.2) Med Orders - Current: Current Medications Acetaminophen (Tylenol) 650 mg PO Q4H PRN PRN Reason: Pain (Mild 1-3)/fever Last Admin: 02/08/17 21:39 Dose: 650 mg Albuterol (Proventil Neb Soln) 2.5 mg NEB Q4H PRN PRN Reason: Shortness Of Breath/wheezing Aripiprazole (Abilify) 5 mg PO DAILY [facility] Last Admin: 02/09/17 10:13 Dose: 5 mg Bupropion HCl (Wellbutrin Xl) 300 mg PO DAILY [facility] Last Admin: 02/09/17 10:13 Dose: 300 mg Docusate Sodium (Colace) 100 mg PO BID PRN PRN Reason: Constipation Estradiol (Estradiol) 2 mg PO DAILY [facility] Last Admin: 02/09/17 10:12 Dose: 2 mg Fentanyl Citrate (Fentanyl In Ns 20 Mcg/Ml 30 Ml Branch Banker) 0 mcg IV ASDIRECTED PRN; Protocol PRN Reason: Pain Gabapentin (Neurontin) 100 mg PO TID [facility] Last Admin: 02/09/17 10:13 Dose: 100 mg Sodium Chloride (Normal Saline) 1,000 mls @ 75 mls/hr IV ASDIRECTED [facility] Lorazepam (Ativan) 1 mg IV Q6H PRN PRN Reason: Nausea/Vomiting/anxiety Last Admin: 02/08/17 06:25 Dose: 1 mg Naloxone HCl (Narcan) 0.4 mg IVPUSH Q2M PRN PRN Reason: Respiratory Distress Naloxone HCl (Narcan) 0.4 mg IVPUSH Q2M PRN PRN Reason: Respiratory Distress Ondansetron HCl (Zofran Odt) 4 mg PO Q6H PRN PRN Reason: Nausea able to take PO Ondansetron HCl (Zofran) 4 mg IV Q4H PRN PRN Reason: Nausea/Vomiting Last Admin: 02/08/17 07:36 Dose: 4 mg Pantoprazole Sodium (Protonix Iv) 40 mg IV Q12H DERICK Last Admin: 02/09/17 09:34 Dose: 40 mg Trazodone HCl (Trazodone) 50 mg PO BEDTIME PRN PRN Reason: Sleep Zolpidem Tartrate (Ambien) 5 mg PO BEDTIME PRN PRN Reason: Sleep Discontinued Medications Dexamethasone (Dexamethasone) Confirm Administered Dose 4 mg .ROUTE .STK-MED ONE Stop: 02/09/17 08:41 Fentanyl (Sublimaze) Confirm Administered Dose 100 mcg .ROUTE .STK-MED ONE Stop: 02/09/17 08:28 Hydromorphone HCl (Dilaudid) 0.5 mg IVPUSH ONETIME ONE Stop: 02/07/17 18:43 Last Admin: 02/07/17 19:27 Dose: 0.5 mg Hydromorphone HCl (Dilaudid) Confirm Administered Dose 1 mg .ROUTE .STK-MED ONE Stop: 02/07/17 19:22 Last Admin: 02/08/17 07:34 Dose: Not Given Hydromorphone HCl (Dilaudid) 0.05 mg IVPUSH ONETIME ONE Stop: 02/07/17 20:45 Last Admin: 02/07/17 21:07 Dose: Not Given Hydromorphone HCl (Dilaudid) 0.5 mg IVPUSH ONETIME ONE Stop: 02/07/17 21:02 Last Admin: 02/07/17 21:04 Dose: 0.5 mg Hydromorphone HCl (Dilaudid) 0.5 mg IVPUSH ONETIME ONE Stop: 02/07/17 23:44 Last Admin: 02/07/17 23:52 Dose: 0.5 mg Hydromorphone HCl (Dilaudid Branch Banker 15 Mg In Ns 30 Ml) 0 mg IV ASDIRECTED PRN; Protocol PRN Reason: Pain Last Admin: 02/08/17 03:29 Dose: 15 mg Sodium Chloride (Normal Saline) 1,000 mls @ 999 mls/hr IV ASDIRECTED DERICK Last Admin: 02/07/17 19:26 Dose: 999 mls/hr Sodium Chloride (Normal Saline) 1,000 mls @ 250 mls/hr IV ASDIRECTED DERICK Last Admin: 02/07/17 20:59 Dose: 250 mls/hr Sodium Chloride (Normal Saline) 80 mls @ 3 mls/sec IV ASDIRECTED DERICK Last Admin: 02/07/17 21:23 Dose: 3 mls/sec Sodium Chloride (Normal Saline) 100 mls @ 4 mls/sec IV ASDIRECTED STA Stop: 02/08/17 00:08 Last Admin: 02/08/17 00:17 Dose: 4 mls/sec Sodium Chloride (Normal Saline) 1,000 mls @ 999 mls/hr IV ASDIRECTED DERICK Last Admin: 02/08/17 01:21 Dose: 999 mls/hr Sodium Chloride (Normal Saline) 1,000 mls @ 125 mls/hr IV ASDIRECTED [facility] Last Admin: 02/08/17 03:13 Dose: 125 mls/hr Iopamidol (Isovue-300 (61%)) 123 ml IV . DIRECTED DERICK Last Admin: 02/07/17 21:23 Dose: 123 ml Iopamidol (Isovue-370 (76%)) 100 ml IV . DIRECTED STA Stop: 02/08/17 00:08 Last Admin: 02/08/17 00:17 Dose: 100 ml Lorazepam (Ativan) 1 mg IVPUSH Q6H PRN PRN Reason: Anxiety Metoprolol Succinate (Toprol Xl) 25 mg PO ASDIRECTED [facility] Midazolam HCl (Versed 1 Mg/Ml) Confirm Administered Dose 2 mg .ROUTE .STK-MED ONE Stop: 02/09/17 08:29 Nitroglycerin (Nitrostat) 0.4 mg SL Q5M PRN PRN Reason: Chest Pain Stop: 02/08/17 09:25 Non-Formulary Medication (Nitroglycerin [Nitrostat]) 0.3 mg SL ACDINNER [facility] Ondansetron HCl (Zofran) 4 mg IVPUSH ONETIME ONE Stop: 02/07/17 18:43 Last Admin: 02/07/17 19:27 Dose: 4 mg Ondansetron HCl (Zofran) 4 mg IVPUSH ONETIME ONE Stop: 02/07/17 22:30 Last Admin: 02/07/17 22:38 Dose: 4 mg Ondansetron HCl (Zofran) Confirm Administered Dose 4 mg .ROUTE .STK-MED ONE Stop: 02/09/17 08:41 Pantoprazole Sodium (Protonix Iv) 40 mg IV DAILY [facility] Last Admin: 02/08/17 08:57 Dose: 40 mg Propofol (Diprivan 20 Ml) Confirm Administered Dose 200 mg .ROUTE .STK-MED ONE Stop: 02/09/17 08:29 Rivaroxaban (Xarelto) 10 mg PO DAILY [facility] Last Admin: 02/08/17 08:46 Dose: Not Given *Q Meaningful Use (DIS) - VTE *Q VTE Criteria *Q: - Stroke *Q Stroke Criteria *Q: - AMI *Q AMI Criteria *Q:
--- NOTE | 2017-02-11 07:56 | OR ---
DATE OF PROCEDURE: 02/09/2017 PROCEDURE: Esophagogastroduodenoscopy. FINDINGS: 1. Gastritis, mild. 2. Mild inflammation at GE junction, possibly consistent with reflux disease. COMPLICATIONS: None. PLASTIC MOULD MAKER: None. POSTOP DIAGNOSIS: Epigastric pain. RISKS: Risks, benefits, alternatives, and limitations, including, but not limited to infection, bleeding, and perforation were explained. The patient wished to proceed. PROCEDURE IN DETAIL: The patient was placed in left lateral decubitus position. The EGD scope was introduced and advanced atraumatically to the 2nd part of duodenum. Scope was brought back into the stomach and retroflexed. In the gastric antrum, there was mild inflammation consistent with gastritis. This was biopsied x2 for H. pylori on admission. On retroflex, there was no hiatal hernia. In the GE junction, there was inflammation, possibly consistent with reflux disease. This was biopsied x6 using cold biopsy forceps. The air was removed from the stomach. The esophagus was inspected without abnormality. The patient tolerated the procedure well. Buddy Kumar MD /[id number]
== END 2017-02-09 12:52 | disposition home or self-care (01) | DRG 392 ==
LOC: JP.ED 16:17 → JP.MS 02-08 01:59
PROVIDERS: ADMIT Hospitalist; ATTEND Hospitalist
PROC: 0DB68ZX Excision of Stomach, Via Natural or Artificial Opening Endoscopic, Diagnostic (ICD-10-PCS; principal; 2017-02-09)
PROC: 0DB48ZX Excision of Esophagogastric Junction, Via Natural or Artificial Opening Endoscopic, Diagnostic (ICD-10-PCS; principal; 2017-02-09)
DX: R10.11 Right upper quadrant pain (principal); J90 Pleural effusion, not elsewhere classified; K29.70 Gastritis, unspecified, without bleeding; Z79.82 Long term (current) use of aspirin; I25.10 Atherosclerotic heart disease of native coronary artery without angina pectoris; I10 Essential (primary) hypertension; I25.2 Old myocardial infarction; F90.9 Attention-deficit hyperactivity disorder, unspecified type; R11.2 Nausea with vomiting, unspecified; K21.0 Gastro-esophageal reflux disease with esophagitis; Z79.01 Long term (current) use of anticoagulants; F41.9 Anxiety disorder, unspecified; F32.9 Major depressive disorder, single episode, unspecified; D64.9 Anemia, unspecified; Z88.5 Allergy status to narcotic agent
CPT/HCPCS: 36415; 71020; 71020-26; 71275; 74177; 76705; 76705-26; 80048; 80053; 80305; 81001; 83605; 83690; 85025; 85379; 86140; 88305; 93005; 93010; 96361; 96374; 96375; 96376; 99285-25; A9270-GY; C9113; G0378; J1100; J1170; J2060; J2250; J2405; J2704; J3010; J7030; J7040; Q9967

== ENCOUNTER 2017-05-28 18:47 | Emergency (ER) | payer MEDICAID ==
--- NOTE | 2017-05-28 19:28 | EDM.PDOC ---
ED HPI GENERAL MEDICAL PROBLEM - General Chief Complaint: Abdominal Pain Stated Complaint: R ABDOMINAL PAIN Time Seen by Provider: 05/28/17 19:23 Source of Information: Reports: Patient, Old Records, RN Notes Reviewed History Limitations: Reports: No Limitations - History of Present Illness INITIAL COMMENTS - FREE TEXT/NARRATIVE: 19.28 here with her Chief complaint Right upper quadrant abdominal pain History of present illness 47-year-old female has had pain in the same area almost constantly since January. This is a second time she's coming through emergency, she was admitted overnight on February 09. Abdominal ultrasound in January as well as CT scan and hydroscan were all negative. She had a negative upper endoscopy with biopsies as well. Apparently she's had an MRI recently but I cannot see any results on the chart. Although the pain is fairly constant, occasionally gets much more severe, she was prescribed Vicodin. She took Vicodin 1 tablet in a hot bath night which usually helps but did not help. She last ate at a restaurant, celebrating her birthday, 2 PM, shrimp, waffle fries, nipple not ice cream. Pain became much worse at 4 PM which prompted her to come here. Since the pain onset in January, she's had about 10-15 pound weight loss. Bowel movements normal No urinary troubles Feels better lying on her right side and curled up. Congenital valve disease, was diagnosed with a heart attack in [place] at [facility] about 3 years ago, does not recall her having an angiogram, however did not recall having upper endoscopy either. Right Upper Abdomen Pain Score (Numeric/FACES): 10 - Related Data Allergies Allergy/AdvReac Type Severity Reaction Status Date / Time morphine AdvReac Vomiting Verified 05/28/17 19:12 Home Meds: Home Meds Gabapentin [Neurontin] 100 mg PO TID 04/10/16 [History] Ibuprofen 800 mg PO ASDIRECTED 04/10/16 [History] Methylphenidate HCl [Ritalin] 20 mg PO TID 04/10/16 [History] ARIPiprazole [Abilify] 5 mg PO DAILY 07/25/16 [History] EPINEPHrine [Epinephrine] 1 injection SUBCNJ ASDIRECTED PRN 07/25/16 [History] Estradiol 2 mg PO DAILY 07/25/16 [History] buPROPion [Wellbutrin XL] 300 mg PO DAILY 07/25/16 [History] traZODone 50 mg PO BEDTIME PRN 07/25/16 [History] Nitroglycerin [Nitrostat] 0.3 mg SL ASDIRECTED PRN 02/08/17 [History] Hydrocodone/Acetaminophen [Hydrocodon-Acetaminophen 5-325] 1 each PO Q4H PRN # 20 tablet 02/09/17 [Rx] Pantoprazole Sodium [Protonix] 40 mg PO DAILY #30 tablet.dr 02/09/17 [Rx] Acetaminophen/oxyCODONE [Percocet 325-5 MG] 1 - 2 each PO Q4H PRN #10 tab [Rx] Past Medical History Cardiovascular History: Reports: CAD, High Cholesterol, Hypertension, [place], Other (See Below) Other Cardiovascular History: valve problems 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: Reports: Dysfunctional Uterine Bleeding Musculoskeletal History: Reports: Fibromyalgia Neurological History: Reports: Migraines, MS Psychiatric History: Reports: ADD, ADHD, Anxiety, Depression Hematologic History: Reports: Other (See Below) Other Hematologic History: low WBCs unknown origin - Infectious Disease History Infectious Disease History: Reports: Chicken Pox - Past Surgical History GI Surgical History: Reports: Hernia Repair/Other Female Surgical History: Reports: Section, Hysterectomy Social & Family History - Family History Family Medical History: Noncontributory - Tobacco Use Smoking Status *Q: Never Smoker Second Hand Smoke Exposure: No - Caffeine Use Caffeine Use: Reports: Soda, Tea - Recreational Drug Use Recreational Drug Use: No - Living Situation & Occupation Living situation: Reports: Occupation: Employed ED ROS GENERAL - Review of Systems Review Of Systems: See Below Constitutional: Reports: Decreased Appetite, Weight Loss. Denies: Fever, Chills HEENT: Reports: No Symptoms Respiratory: Reports: No Symptoms Cardiovascular: Reports: No Symptoms Endocrine: Reports: No Symptoms GI/Abdominal: Reports: Abdominal Pain. Denies: Constipation, Diarrhea, Decreased Appetite, Distension, Nausea (usually has nausea with her pain but not tonight), Vomiting : Reports: No Symptoms, Other (hysterectomy) Musculoskeletal: Reports: No Symptoms Skin: Reports: No Symptoms Neurological: Reports: No Symptoms Psychiatric: Reports: No Symptoms Hematologic/Lymphatic: Reports: No Symptoms Immunologic: Reports: No Symptoms ED EXAM, GI/ABD - Physical Exam Exam: See Below Exam Limited By: No Limitations General Appearance: Alert, Mild Distress, Other (vital signs are normal, color normal, no difficulty speaking or breathing) Eyes: Bilateral: Normal Appearance, EOMI Ears: Normal External Exam Nose: Normal Inspection Throat/Mouth: Normal Inspection, Normal Oropharynx Head: Atraumatic, Normocephalic Neck: Normal Inspection, Supple Respiratory/Chest: No Respiratory Distress, Lungs Clear, Normal Breath Sounds, No Accessory Muscle Use Cardiovascular: Normal Peripheral Pulses, Regular Rate, Rhythm GI/Abdominal Exam: Normal Bowel Sounds, Soft, No Organomegaly, No Distention, Tender (right lower quadrant just above the inguinal ligament, right upper quadrant, not tender in the epigastric area, also tender in a single spot in the right flank), Other (no costovertebral angle tenderness) Back Exam: Normal Inspection. No: CVA Tenderness (R), CVA Tenderness (L) Neurological: Alert, Oriented, Normal Cognition Psychiatric: Normal Mood Skin Exam: Warm, Dry, Normal Color, No Rash Lymphatic: No Adenopathy Course - Vital Signs Last Recorded V/S: Last Vital Signs Temp 36.5 C 05/28/17 21:18 Pulse 67 05/28/17 21:18 Resp 16 05/28/17 21:18 BP 123/77 05/28/17 21:18 Pulse Ox 95 05/28/17 21:18 - Orders/Labs/Meds Orders: Active Orders 24 hr Category Date Time Status Peripheral IV Care [RC] . DIRECTED Care 05/28/17 19:41 Active Peripheral IV Insertion Adult [OM.PC] Routine Oth 05/28/17 19:39 Ordered Saline Lock Insert [OM.PC] Stat Oth 05/28/17 19:39 Ordered Labs: Laboratory Tests 05/28/17 05/28/17 05/28/17 Range/Units 19:53 19:53 19:53 WBC 4.5 (4.5-11.0) K/uL RBC 4.17 (3.30-5.50) M/uL Hgb 11.7 L (12.0-15.0) g/dL Hct 37.0 (36.0-48.0) % MCV 89 (80-98) fL MCH 28 (27-31) pg MCHC 32 (32-36) % Plt Count 241 (150-400) K/uL Sodium 143 (140-148) mmol/L Potassium 4.1 (3.6-5.2) mmol/L Chloride 109 H (100-108) mmol/L Carbon Dioxide 28 (21-32) mmol/L Anion Gap 10.1 (5.0-14.0) mmol/L BUN 16 D (7-18) mg/dL Creatinine 1.2 H (0.6-1.0) mg/dL Est Cr Clr Drug Dosing 59.72 mL/min Estimated GFR (MDRD) 49 L (>60) Glucose 91 (74-106) mg/dL Lactic Acid (0.4-2.0) mmol/L Calcium 8.4 L (8.5-10.1) mg/dL Total Bilirubin 0.2 (0.2-1.0) mg/dL AST 16 (15-37) U/L ALT 18 D (12-78) U/L Alkaline Phosphatase 97 (46-116) U/L Troponin I < 0.017 (0.000-0.056) ng/mL Total Protein 7.4 (6.4-8.2) g/dL Albumin 3.1 L (3.4-5.0) g/dL Globulin 4.3 H (2.3-3.5) g/dL Albumin/Globulin Ratio 0.7 L (1.2-2.2) Lipase 158 (73-393) U/L 05/28/17 Range/Units 19:53 WBC (4.5-11.0) K/uL RBC (3.30-5.50) M/uL Hgb (12.0-15.0) g/dL Hct (36.0-48.0) % MCV (80-98) fL MCH (27-31) pg MCHC (32-36) % Plt Count (150-400) K/uL Sodium (140-148) mmol/L Potassium (3.6-5.2) mmol/L Chloride (100-108) mmol/L Carbon Dioxide (21-32) mmol/L Anion Gap (5.0-14.0) mmol/L BUN (7-18) mg/dL Creatinine (0.6-1.0) mg/dL Est Cr Clr Drug Dosing mL/min Estimated GFR (MDRD) (>60) Glucose (74-106) mg/dL Lactic Acid 1.0 (0.4-2.0) mmol/L Calcium (8.5-10.1) mg/dL Total Bilirubin (0.2-1.0) mg/dL AST (15-37) U/L ALT (12-78) U/L Alkaline Phosphatase (46-116) U/L Troponin I (0.000-0.056) ng/mL Total Protein (6.4-8.2) g/dL Albumin (3.4-5.0) g/dL Globulin (2.3-3.5) g/dL Albumin/Globulin Ratio (1.2-2.2) Lipase (73-393) U/L Meds: Medications Discontinued Medications Generic Name Dose Route Start Last Admin Trade Name Freq PRN Reason Stop Dose Admin Ketorolac Tromethamine 15 mg 05/28/17 19:41 05/28/17 20:02 Toradol IVPUSH 05/28/17 19:42 15 mg ONETIME ONE Administration Lorazepam 1 mg 05/28/17 19:41 05/28/17 20:04 Ativan IVPUSH 05/28/17 19:42 1 mg ONETIME ONE Administration Sodium Chloride 10 ml 05/28/17 19:41 05/28/17 20:07 Saline Flush FLUSH 10 ml ASDIRECTED PRN Administration Keep Vein Open - Re-Assessments/Exams Free Text/Narrative Re-Assessment/Exam: 05/28/17 19:50 47-year-old female with persisting right upper quadrant abdominal pain. Exam tonight also show some right flank and right lower quadrant tenderness. Saline lock, Toradol 15 mg, lorazepam 1 mg IV Labs ordered sYMPTOMS IMPROVEd lAB TESTS UNREVEALING fOLLOW-UP WITH SURGERY RECOMMENDED dISCHARGE WITH 10 TABLETS OF pERCOCET 05/28/17 21:18 05/29/17 01:20 Departure - Departure Time of Disposition: 21:17 Disposition: Home, Self-Care 01 Condition: Fair Clinical Impression: Abdominal pain, chronic, right upper quadrant - Discharge Information Prescriptions: Acetaminophen/oxyCODONE [Percocet 325-5 MG] 1 - 2 each PO Q4H PRN #10 tab PRN Reason: MODERATE TO SEVERE PAIN Instructions: Abdominal Pain, Adult, [id number] Referrals: PCP,None [Primary Care Provider] - Forms: ED Department Discharge Additional Instructions: PLEASE MAKE AN APPOINTMENT WITH dR. Whitlock, GENERAL SURGERY FOR FURTHER ASSESSMENT. yOU MAY ALSO MAKE AN APPOINTMENT WITH YOUR REGULAR PROVIDER. rETURN TO EMERGENCY IF FEVER, ABDOMINAL PAIN, TURNING YELLOW/JAUNDICE OR OTHER NEW SYMPTOMS - My Orders Last 24 Hours: My Active Orders 05/28/17 19:39 Peripheral IV Insertion Adult [OM.PC] Routine Saline Lock Insert [OM.PC] Stat 05/28/17 19:41 Peripheral IV Care [RC] . DIRECTED - Assessment/Plan Last 24 Hours: My Active Orders 05/28/17 19:39 Peripheral IV Insertion Adult [OM.PC] Routine Saline Lock Insert [OM.PC] Stat 05/28/17 19:41 Peripheral IV Care [RC] . DIRECTED
[2017-05-28] MEDS ORDERED: Ketorolac 30 MG/ML SDV IVPUSH ONE (19:41)
[2017-05-28] MEDS ORDERED: LORazepam 2 MG/ML MDV IVPUSH ONE (19:41)
[2017-05-28] MEDS: Sodium Chloride 0.9% 10 ML Syringe FLUSH PRN ×2 (20:04→20:07)
[2017-05-28 21:19] VITALS: BP 123/77
== END 2017-05-28 21:27 | disposition home or self-care (01) ==
LOC: JP.ED 18:47
DX: R10.11 Right upper quadrant pain (principal); I25.10 Atherosclerotic heart disease of native coronary artery without angina pectoris; E78.00 Pure hypercholesterolemia, unspecified; I10 Essential (primary) hypertension; I25.2 Old myocardial infarction; F41.9 Anxiety disorder, unspecified; F32.9 Major depressive disorder, single episode, unspecified; Z90.710 Acquired absence of both cervix and uterus; Z88.5 Allergy status to narcotic agent; Z79.899 Other long term (current) drug therapy
CPT/HCPCS: 36415; 80053; 83605; 83690; 84484; 85027; 96374; 96375; 99284; J1885; J2060; J7050; 99283

== ENCOUNTER 2017-08-02 12:37 | Emergency (ER) | payer MEDICAID ==
[2017-08-02 13:20] VITALS: BP 114/32
--- NOTE | 2017-08-02 14:32 | EDM.PDOC ---
ED HPI GENERAL MEDICAL PROBLEM - General Chief Complaint: Abdominal Pain Stated Complaint: R ABDOMINAL PAIN Time Seen by Provider: 08/02/17 14:29 Source of Information: Reports: Patient, Family, Old Records, RN Notes Reviewed History Limitations: Reports: No Limitations - History of Present Illness INITIAL COMMENTS - FREE TEXT/NARRATIVE: 47-year-old female presents emergency department today complaint of right upper quadrant pain, she has had pain in the right upper quadrant for the last 6 months of which is exacerbated by food she was initially admitted to the hospital in January of this year for an evaluation of right upper quadrant which included CT scan HIDA scan and EGD CT scan was unremarkable, EGD showed mild gastritis HIDA scan showed an ejection fraction above the normal limits however when asked specifically what happened with the CCK injection she states that it induces the pain similar to when she eats food only it was more severe with the CCK. Right Upper Abdomen Pain Score (Numeric/FACES): 10 - Related Data Allergies Allergy/AdvReac Type Severity Reaction Status Date / Time morphine AdvReac Vomiting Verified 08/02/17 13:43 Home Meds: Home Meds Gabapentin [Neurontin] 100 mg PO TID 04/10/16 [History] Ibuprofen 800 mg PO ASDIRECTED 04/10/16 [History] Methylphenidate HCl [Ritalin] 20 mg PO TID 04/10/16 [History] ARIPiprazole [Abilify] 5 mg PO DAILY 07/25/16 [History] EPINEPHrine [Epinephrine] 1 injection SUBCNJ ASDIRECTED PRN 07/25/16 [History] Estradiol 2 mg PO DAILY 07/25/16 [History] buPROPion [Wellbutrin XL] 300 mg PO DAILY 07/25/16 [History] traZODone 50 mg PO BEDTIME PRN 07/25/16 [History] Nitroglycerin [Nitrostat] 0.3 mg SL ASDIRECTED PRN 02/08/17 [History] Pantoprazole Sodium [Protonix] 40 mg PO DAILY #30 tablet. 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 Female Surgical History: Reports: Section, Hysterectomy Social & Family History - Family History Family Medical History: Noncontributory - Tobacco Use Smoking Status *Q: Never Smoker Second Hand Smoke Exposure: No - Caffeine Use Caffeine Use: Reports: Soda, Tea - Recreational Drug Use Recreational Drug Use: No - Living Situation & Occupation Living situation: Reports: Occupation: Employed ED ROS GENERAL - Review of Systems Review Of Systems: See Below Constitutional: Reports: No Symptoms HEENT: Reports: No Symptoms Respiratory: Reports: No Symptoms Cardiovascular: Reports: No Symptoms GI/Abdominal: Reports: Abdominal Pain (With food), Nausea. Denies: Constipation , Diarrhea, Vomiting : Reports: No Symptoms Musculoskeletal: Reports: No Symptoms Skin: Reports: No Symptoms ED EXAM, GI/ABD - Physical Exam Exam: See Below Text/Narrative:: General: Female, not in any distress, alert and oriented x3 HEENT: head is atraumatic normocephalic, eyes pupils equal round reactive to light, sclera clear no conjunctivitis appreciated. Ears tympanic membranes clear and alston landmarks and light reflex are present bilaterally canals are clear. Nose no septal deviation, nares are clear, no blood present. Mouth mucosa is moist and pink no erythema or exudate noted in soft palate, tongue is midline uvula is midline, dentition is intact. Neck: Supple no thyromegaly no tracheal deviation. Nodes: Cervical nodes subclavicular nodes nontender no palpable lymphadenopathy noted. Lungs: clear to auscultation bilaterally with symmetrical respirations, no adventitious noise appreciated. CV: Regular rate and rhythm S1 and S2 appreciated no murmurs rubs or gallops noted. Abdomen: Soft, tender right upper quadrant, no palpable masses or organomegaly appreciated, no distention no guarding bowel sounds are present, . Neuro: Cranial nerves II through XII grossly intact Skin: Warm and dry, intact Extremities: No lower extremity edema appreciated, Course - Vital Signs Last Recorded V/S: Last Vital Signs Temp 96.6 F 08/02/17 13:50 Pulse 62 08/02/17 13:50 Resp 14 08/02/17 13:50 BP 114/32 L 08/02/17 13:50 Pulse Ox 99 08/02/17 13:50 - Orders/Labs/Meds Orders: Active Orders 24 hr Category Date Time Status EKG Documentation Completion [RC] ASDIRECTED Care 08/02/17 14:36 Active EKG 12 Lead [EK] Stat Ther 08/02/17 14:36 Ordered Labs: Laboratory Tests 08/02/17 08/02/17 Range/Units 14:40 14:40 WBC 5.0 (4.5-11.0) K/uL RBC 4.18 (3.30-5.50) M/uL Hgb 12.3 (12.0-15.0) g/dL Hct 37.8 (36.0-48.0) % MCV 90 (80-98) fL MCH 29 (27-31) pg MCHC 33 (32-36) % Plt Count 232 (150-400) K/uL Neut % (Auto) 62 (36-66) % Lymph % (Auto) 25 (24-44) % [place] % (Auto) 10 H (2-6) % Eos % (Auto) 3 (2-4) % Baso % (Auto) 0 (0-1) % Sodium 141 (140-148) mmol/L Potassium 4.2 (3.6-5.2) mmol/L Chloride 105 (100-108) mmol/L Carbon Dioxide 30 (21-32) mmol/L Anion Gap 6.2 (5.0-14.0) mmol/L BUN 17 (7-18) mg/dL Creatinine 1.2 H (0.6-1.0) mg/dL Est Cr Clr Drug Dosing 59.72 mL/min Estimated GFR (MDRD) 49 L (>60) Glucose 94 (74-106) mg/dL Calcium 9.3 (8.5-10.1) mg/dL Total Bilirubin 0.3 (0.2-1.0) mg/dL AST 17 (15-37) U/L ALT 21 (12-78) U/L Alkaline Phosphatase 100 (46-116) U/L Total Protein 7.7 (6.4-8.2) g/dL Albumin 3.4 (3.4-5.0) g/dL Globulin 4.3 H (2.3-3.5) g/dL Albumin/Globulin Ratio 0.8 L (1.2-2.2) Departure - Departure Time of Disposition: 15:20 Disposition: Home, Self-Care 01 Condition: Fair Clinical Impression: Right upper quadrant pain - Discharge Information Referrals: PCP,None [Primary Care Provider] - Forms: ED Department Discharge Additional Instructions: Use hydrocodone as needed for pain control, please report to outpatient surgery 8:30 Saturday morning, call or return to the emergency department worsening of symptoms - My Orders Last 24 Hours: My Active Orders 08/02/17 14:36 EKG Documentation Completion [RC] ASDIRECTED EKG 12 Lead [EK] Stat - Assessment/Plan Last 24 Hours: My Active Orders 08/02/17 14:36 EKG Documentation Completion [RC] ASDIRECTED EKG 12 Lead [EK] Stat Plan: Assessment Acuity = acute Site and laterality = right upper quadrant pain exacerbated by CCK Etiology = probable gallbladder disease Manifestations = none Location of injury = Home Lab values = CBC unremarkable, CMP reveals a creatinine elevated at 1.2 consistent with chronic renal failure stage GIII a EKG demonstrates sinus rhythm no ST elevations or depressions Plan Discussed the case with Dr. Barajas general surgery he kindly came and evaluated the patient in the emergency department felt she was a candidate for cholecystectomy she is scheduled for that on Saturday at 8:30 in the morning prescription written for Vicodin 1 tablet by mouth 3 times a day when necessary total #20 tablets Patient was in agreement with the plan all questions were answered, they were instructed to return to the emergency department or call for worsening symptoms. This note was dictated using [employer] voice recognition software please call with any questions.
== END 2017-08-02 15:36 | disposition home or self-care (01) ==
LOC: JP.ED 12:37
DX: R10.11 Right upper quadrant pain (principal); I10 Essential (primary) hypertension; E78.00 Pure hypercholesterolemia, unspecified; Z79.899 Other long term (current) drug therapy; Z88.5 Allergy status to narcotic agent
CPT/HCPCS: 36415; 80053; 85025; 93005; 99284-25

== ENCOUNTER 2017-08-02 17:43 | Emergency (ER) | payer MEDICAID ==
[2017-08-02] MEDS ORDERED: Ketorolac 30 MG/ML SDV IVPUSH ONE (18:28)
--- NOTE | 2017-08-02 19:17 | EDM.PDOC ---
ED HPI GENERAL MEDICAL PROBLEM - General Chief Complaint: Syncope Stated Complaint: MEDICAL VIA TRI Time Seen by Provider: 08/02/17 18:15 Source of Information: Reports: Patient, EMS, Family History Limitations: Reports: No Limitations - History of Present Illness INITIAL COMMENTS - FREE TEXT/NARRATIVE: 47-year-old female with chronic valvular heart disease, recurring syncope who was evaluated earlier today with some abdominal pain and found to have symptoms reproducible on a HIDA scan and is scheduled for a cholecystectomy on Saturday. After getting home there was a large argument in the family which caused her to get "stressed out", she became lightheaded and passed out. She was stable in route by EMS. She is in a normal sinus rhythm. She is having some chest discomfort which is typical for her after her episodes. She's had extensive cardiology workups and a normal angiogram. She is feeling better. Onset: Sudden Severity: Moderate Associated Symptoms: Reports: Chest Pain, Malaise, Syncope Left Chest Pain Score (Numeric/FACES): 4 - Related Data Allergies Allergy/AdvReac Type Severity Reaction Status Date / Time morphine AdvReac Vomiting Verified 08/02/17 17:57 Home Meds: Home Meds Gabapentin [Neurontin] 100 mg PO TID 04/10/16 [History] Ibuprofen 800 mg PO ASDIRECTED 04/10/16 [History] Methylphenidate HCl [Ritalin] 20 mg PO TID 04/10/16 [History] ARIPiprazole [Abilify] 5 mg PO DAILY 07/25/16 [History] EPINEPHrine [Epinephrine] 1 injection SUBCNJ ASDIRECTED PRN 07/25/16 [History] Estradiol 2 mg PO DAILY 07/25/16 [History] buPROPion [Wellbutrin XL] 300 mg PO DAILY 07/25/16 [History] traZODone 50 mg PO BEDTIME PRN 07/25/16 [History] Nitroglycerin [Nitrostat] 0.3 mg SL ASDIRECTED PRN 02/08/17 [History] Pantoprazole Sodium [Protonix] 40 mg PO DAILY #30 tablet. 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 Female Surgical History: Reports: Section, Hysterectomy Social & Family History - Family History Family Medical History: Noncontributory - Tobacco Use Smoking Status *Q: Never Smoker Second Hand Smoke Exposure: No - Caffeine Use Caffeine Use: Reports: Coffee, Soda - Recreational Drug Use Recreational Drug Use: No - Living Situation & Occupation Living situation: Reports: Occupation: Employed ED ROS GENERAL - Review of Systems Review Of Systems: See Below Constitutional: Reports: Malaise. Denies: Fever, Chills HEENT: Reports: No Symptoms Respiratory: Denies: Shortness of Breath Cardiovascular: Reports: Chest Pain. Denies: Palpitations GI/Abdominal: Denies: Nausea, Vomiting Skin: Reports: Diaphoresis Neurological: Denies: Headache - Physical Exam Exam: See Below Exam Limited By: No Limitations General Appearance: Alert, No Apparent Distress Eye Exam: Bilateral Eye: Normal Inspection Respiratory/Chest: No Respiratory Distress, Lungs Clear, Other (She does have some tenderness to palpation across the anterior chest) Cardiovascular: Regular Rate, Rhythm, Systolic Murmur (2/6 systolic ejection murmur) GI/Abdominal: Soft, Non-Tender Neuro Exam (Abbreviated): Alert, Oriented, No Motor/Sensory Deficits Extremities: No: Pedal Edema Psychiatric: Normal Affect, Normal Mood Skin Exam: Warm, Dry Course - Vital Signs Last Recorded V/S: Last Vital Signs Temp 97.1 F 08/02/17 19:20 Pulse 78 08/02/17 19:20 Resp 14 08/02/17 19:20 BP 103/58 L 08/02/17 19:20 Pulse Ox 99 08/02/17 19:20 - Orders/Labs/Meds Meds: Medications Discontinued Medications Generic Name Dose Route Start Last Admin Trade Name Freq PRN Reason Stop Dose Admin Ketorolac Tromethamine 30 mg 08/02/17 18:28 08/02/17 18:36 Toradol IVPUSH 08/02/17 18:29 30 mg ONETIME ONE Administration - Re-Assessments/Exams Free Text/Narrative Re-Assessment/Exam: 08/02/17 19:15 Patient was kept on the monitor and given 30 mg of Toradol IV. No further workup was necessary. After one hour she felt much improved, ambulated without difficulty and was discharged. She is to keep her scheduled appointment for Saturday. She can return anytime if worsening or symptoms recur. Departure - Departure Time of Disposition: 19:27 Disposition: Home, Self-Care 01 Condition: Good Clinical Impression: Syncope Qualifiers: Syncope type: vasovagal syncope Qualified Code(s): R55 - Syncope and collapse - Discharge Information Instructions: Syncope, [id number] Referrals: PCP,None [Primary Care Provider] - Forms: ED Department Discharge Care Plan Goals: Increase activity as tolerated. Continue your regular medications, return if symptoms recur or he develop other concerns. Otherwise follow up Saturday as scheduled.
[2017-08-02 19:21] VITALS: BP 103/58
== END 2017-08-02 19:28 | disposition home or self-care (01) ==
LOC: JP.ED 17:43
DX: R55 Syncope and collapse (principal); R10.11 Right upper quadrant pain; I10 Essential (primary) hypertension; E78.00 Pure hypercholesterolemia, unspecified; Z79.899 Other long term (current) drug therapy; Z88.5 Allergy status to narcotic agent
CPT/HCPCS: 36415; 80053; 85025; 93005; 96374; 99284; J1885; 93010

== ENCOUNTER 2017-08-05 08:25 | Observation (INO) | payer MEDICAID ==
[2017-08-05] MEDS ORDERED: cefOXitin 2 GM in Sodium Chloride 0.9% 50 ML IV ONE (09:00)
[2017-08-05] MEDS ORDERED: Dextrose 5%-Lactated Ringers 1,000 ML IV SCH (09:00)
[2017-08-05] MEDS ORDERED: Lidocaine 1% with EPINEPHrine 1:100,000 50 ML MDV ONE (10:27)
[2017-08-05] MEDS ORDERED: Bupivacaine 0.5% 50 ML MDV ONE (10:27)
[2017-08-05] MEDS ORDERED: Scopolamine 1.5 MG Transdermal Patch TRDERM ONE (10:35)
[2017-08-05] MEDS ORDERED: Dexamethasone 4 MG/ML SDV ONE (11:14)
[2017-08-05] MEDS ORDERED: fentaNYL 250 MCG/5 ML SDV ONE ×2 (11:14→11:58)
[2017-08-05] MEDS ORDERED: Propofol 200 MG/20 ML SDV ONE (11:14)
[2017-08-05] MEDS ORDERED: Ondansetron 4 MG/2 ML SDV ONE (11:14)
[2017-08-05] MEDS ORDERED: Rocuronium 50 MG/5 ML Vial ONE (11:14)
[2017-08-05] MEDS ORDERED: Neostigmine Methylsulfate 1 MG/ML 5 ML Syringe ONE (11:32)
[2017-08-05] MEDS ORDERED: Glycopyrrolate 0.2 MG/ML 5 ML MDV ONE (11:32)
[2017-08-05] MEDS ORDERED: traZODone 50 MG Tab PO PRN (12:36)
[2017-08-05] MEDS ORDERED: EPINEPHrine 1 MG/ML SDV SUBCUT PRN (12:36)
[2017-08-05] MEDS ORDERED: NITROGLYCERIN 0.3 MG SL PRN (12:36)
[2017-08-05] MEDS ORDERED: Ondansetron 4 MG/2 ML SDV IVPUSH PRN (12:37)
[2017-08-05] MEDS ORDERED: Ondansetron 4 MG/2 ML SDV IVPUSH ONE (12:47)
[2017-08-05] MEDS ORDERED: Nitroglycerin 0.4 MG Tab.SL SL PRN (12:47)
[2017-08-05] MEDS ORDERED: hydrOXYzine HCl 100 MG/2 ML SDV IM ONE (12:58)
[2017-08-05] MEDS ORDERED: Meperidine PF 50 MG/ML Syringe IM ONE (12:59)
[2017-08-05] MEDS ORDERED: fentaNYL/Normal Saline 600 MCG/30 ML PCA Vial IV PRN ×2 (13:15→20:35)
[2017-08-05] MEDS ORDERED: Naloxone 0.4 MG/ML SDV IV PRN (13:19)
[2017-08-05] MEDS ORDERED: LORazepam 2 MG/ML MDV IVPUSH ONE (13:31)
[2017-08-05] MEDS: D5 1/2 NS w/ 20 mEq/L KCl 1,000 ML IV SCH ×2 (14:34→22:40)
[2017-08-05] MEDS ORDERED: FLU Vacc QS 2017-18 (36mos UP)/PF 60 MCG/0.5 ML Syringe IM ONE (16:00)
[2017-08-05] MEDS: Methylphenidate 10 MG Tab PO SCH ×2 (16:01→21:40)
[2017-08-05] MEDS: ARIPiprazole 10 MG Tab PO SCH (16:01)
[2017-08-05] MEDS: Gabapentin 100 MG Cap PO SCH ×2 (16:01→21:39)
[2017-08-05] MEDS: buPROPion 150 MG Tab.ER PO SCH (16:02)
[2017-08-05] MEDS: Pantoprazole 40 MG Tab.CR PO SCH (16:02)
[2017-08-05] MEDS: Ondansetron 4 MG/2 ML SDV IVPUSH PRN (21:33)
[2017-08-06] MEDS: Ondansetron 4 MG/2 ML SDV IVPUSH PRN ×4 (02:34→18:45)
[2017-08-06] MEDS ORDERED: Meperidine PF 50 MG/ML Syringe IM ONE (05:22)
[2017-08-06] MEDS ORDERED: hydrOXYzine HCl 100 MG/2 ML SDV IM ONE (05:22)
[2017-08-06] MEDS: D5 1/2 NS w/ 20 mEq/L KCl 1,000 ML IV SCH ×2 (06:20→15:08)
--- NOTE | 2017-08-06 06:35 | PCM.SURGPN ---
- General Info Date of Service: 08/06/17 Date of Surgery/Procedure: 08/05/17 POD#: 1 Post-Op Diagnosis: Chronic cholecystitis with biliary dyskinesia Functional Status: Reports: Ambulating, Urinating, Incentive Spirometry - Review of Systems General: Reports: Other (Nausea and pain. ) HEENT: Reports: No Symptoms Pulmonary: Reports: No Symptoms Cardiovascular: Reports: No Symptoms Gastrointestinal: Reports: Abdominal Pain, Nausea. Denies: Vomiting Genitourinary: Reports: No Symptoms Musculoskeletal: Reports: No Symptoms Skin: Reports: No Symptoms Neurological: Reports: No Symptoms Psychiatric: Reports: No Symptoms - Patient Data Vitals - Most Recent: Last Vital Signs Temp 97.1 F 08/06/17 02:33 Pulse 60 08/06/17 02:33 Resp 16 08/06/17 02:33 BP 102/65 08/06/17 02:33 Pulse Ox 98 08/06/17 02:33 Weight - Most Recent: 199 lb 12.8 oz I&O - Last 24 Hours: Intake & Output 08/05/17 08/05/17 08/06/17 14:59 22:59 06:59 Intake Total 300 420 0434 Output Total 950 450 Balance 150 -462 872 Lab Results Last 24 Hrs: Laboratory Results - last 24 hr 08/05/17 08/06/17 08/06/17 Range/Units 18:21 05:00 05:00 WBC 9.5 12.2 H (4.5-11.0) K/uL RBC 4.06 3.82 (3.30-5.50) M/uL Hgb 11.7 L 11.0 L (12.0-15.0) g/dL Hct 36.8 35.3 L (36.0-48.0) % MCV 91 92 (80-98) fL MCH 29 29 (27-31) pg MCHC 32 31 L (32-36) % Plt Count 232 210 (150-400) K/uL Total Bilirubin 0.2 (0.2-1.0) mg/dL Direct Bilirubin 0.05 (0.0-0.2) mg/dL Indirect Bilirubin TNP AST 27 (15-37) U/L ALT 26 (12-78) U/L Alkaline Phosphatase 88 (46-116) U/L Total Protein 6.8 (6.4-8.2) g/dL Albumin 2.8 L (3.4-5.0) g/dL Globulin 4.0 H (2.3-3.5) g/dL Albumin/Globulin Ratio 0.7 L (1.2-2.2) Roberth Results Last 24 Hrs: Microbiology 08/05/17 13:19 Gram Stain - Final Gallbladder Fluid - Bile Med Orders - Current: Current Medications Aripiprazole (Abilify) 5 mg PO DAILY [facility] Last Admin: 08/05/17 16:01 Dose: Not Given Bupropion HCl (Wellbutrin Xl) 300 mg PO DAILY [facility] Last Admin: 08/05/17 16:02 Dose: Not Given Epinephrine HCl (Adrenalin 1:1000) 0 mg SUBCUT ASDIRECTED PRN PRN Reason: Allergies Estradiol (Estradiol) 2 mg PO DAILY [facility] Fentanyl Citrate (Fentanyl In Ns 20 Mcg/Ml 30 Ml Pararescue Manager) 0 mcg IV ASDIRECTED PRN; Protocol PRN Reason: Pain Last Admin: 08/06/17 06:21 Dose: 600 mcg Gabapentin (Neurontin) 100 mg PO TID [facility] Last Admin: 08/05/17 21:39 Dose: Not Given Potassium Chloride/Dextrose/Sod Cl (D5 1/2 Ns W/ 20 Meq/L Kcl) 1,000 mls @ 125 mls/hr IV ASDIRECTED [facility] Last Admin: 08/06/17 06:20 Dose: 125 mls/hr Influenza Virus Vaccine (Fluzone Quad [id number]) 60 mcg IM .ONCE ONE Stop: 08/06/17 10:01 Methylphenidate HCl (Ritalin) 20 mg PO TID [facility] Last Admin: 08/05/17 21:40 Dose: Not Given Naloxone HCl (Narcan) 0.1 mg IV ASDIRECTED PRN PRN Reason: RESP DISTRESS Nitroglycerin (Nitrostat) 0.4 mg SL ASDIRECTED PRN PRN Reason: CHEST PAIN Ondansetron HCl (Zofran) 4 mg IVPUSH Q4H PRN PRN Reason: Nausea/Vomiting Last Admin: 08/06/17 02:34 Dose: 4 mg Pantoprazole Sodium (Protonix) 40 mg PO DAILY@0730 [facility] Last Admin: 08/05/17 16:02 Dose: Not Given Trazodone HCl (Trazodone) 50 mg PO BEDTIME PRN PRN Reason: Sleep Discontinued Medications Bupivacaine HCl (Marcaine 0.5%) Confirm Administered Dose 50 ml .ROUTE .STK-MED ONE Stop: 08/05/17 10:28 Last Admin: 08/05/17 11:57 Dose: 20 ml Dexamethasone (Dexamethasone) Confirm Administered Dose 4 mg .ROUTE .STK-MED ONE Stop: 08/05/17 11:15 Fentanyl (Sublimaze) Confirm Administered Dose 250 mcg .ROUTE .STK-MED ONE Stop: 08/05/17 11:15 Fentanyl (Sublimaze) Confirm Administered Dose 250 mcg .ROUTE .STK-MED ONE Stop: 08/05/17 11:59 Fentanyl Citrate (Fentanyl In Ns 20 Mcg/Ml 30 Ml Pararescue Manager) 0 mcg IV ASDIRECTED PRN; Protocol PRN Reason: PAIN Last Admin: 08/05/17 16:37 Dose: 600 mcg Glycopyrrolate (Robinul) Confirm Administered Dose 1 mg .ROUTE .STK-MED ONE Stop: 08/05/17 11:33 Hydroxyzine HCl (Vistaril) 100 mg IM ONETIME ONE Stop: 08/05/17 12:59 Last Admin: 08/05/17 13:10 Dose: 100 mg Hydroxyzine HCl (Vistaril) 100 mg IM ONETIME ONE Stop: 08/06/17 05:23 Last Admin: 08/06/17 05:42 Dose: 100 mg Cefoxitin Sodium 2 gm/ Sodium (Chloride) 50 mls @ 100 mls/hr IV ONETIME ONE Stop: 08/05/17 09:29 Last Admin: 08/05/17 11:15 Dose: 100 mls/hr Dextrose/Lactated Ringer's (Dextrose 5%-Lactated Ringers) 1,000 mls @ 100 mls/ hr IV ASDIRECTED DERICK Last Admin: 08/05/17 09:16 Dose: 100 mls/hr Influenza Virus Vaccine (Pharmacy To Dose - Influenza Vaccine) 1 each IM ONETIME ONE Stop: 08/05/17 09:01 Last Admin: 08/05/17 18:41 Dose: Not Given Lidocaine/Epinephrine (Xylocaine 1% With Epinephrine 1:100,000) Confirm Administered Dose 50 ml .ROUTE .STK-MED ONE Stop: 08/05/17 10:28 Last Admin: 08/05/17 11:57 Dose: 20 ml Lorazepam (Ativan) 0.5 mg IVPUSH ONETIME ONE Stop: 08/05/17 13:32 Last Admin: 08/05/17 13:39 Dose: 0.5 mg Meperidine HCl (Demerol) 50 mg IM ONETIME ONE Stop: 08/05/17 13:00 Last Admin: 08/05/17 13:09 Dose: 50 mg Meperidine HCl (Demerol) 50 mg IM ONETIME ONE Stop: 08/06/17 05:23 Last Admin: 08/06/17 05:42 Dose: 50 mg Neostigmine Methylsulfate (Neostigmine) Confirm Administered Dose 5 mg .ROUTE .STK-MED ONE Stop: 08/05/17 11:33 Ondansetron HCl (Zofran) Confirm Administered Dose 4 mg .ROUTE .STK-MED ONE Stop: 08/05/17 11:15 Ondansetron HCl (Zofran) 4 mg IVPUSH Q6H PRN PRN Reason: Nausea/Vomiting Last Admin: 08/05/17 17:27 Dose: 4 mg Ondansetron HCl (Zofran) 4 mg IVPUSH ONETIME ONE Stop: 08/05/17 12:48 Last Admin: 08/05/17 12:50 Dose: 4 mg Propofol (Diprivan 20 Ml) Confirm Administered Dose 200 mg .ROUTE .STK-MED ONE Stop: 08/05/17 11:15 Rocuronium Delancey (Zemuron) Confirm Administered Dose 50 mg .ROUTE .STK-MED ONE Stop: 08/05/17 11:15 Scopolamine (Transderm-Scop) 1.5 mg TRDERM ONETIME ONE Stop: 08/05/17 10:36 Last Admin: 08/05/17 10:43 Dose: 1.5 mg Sodium Chloride (Normal Saline) 1,000 ml IRR .STK-MED ONE Stop: 08/05/17 12:05 Last Admin: 08/05/17 12:04 Dose: 1,000 ml - Exam Wound/Incisions: Healing Well, No Drainage General: Alert, Oriented, Cooperative, No Acute Distress Lungs: Clear to Auscultation, Normal Respiratory Effort Cardiovascular: Regular Rate, Regular Rhythm GI/Abdominal Exam: Normal Bowel Sounds, Soft, No Distention. No: Non-Tender Extremities: Normal Inspection Skin: Warm, Dry, Intact Psy/Mental Status: Alert, Normal Affect, Normal Mood - Problem List & Annotations (1) Chronic cholecystitis SNOMED Code(s): 20481836 Code(s): K81.1 - CHRONIC CHOLECYSTITIS Status: Acute Current Visit: Yes - Problem List Review Problem List Initiated/Reviewed/Updated: Yes - My Orders Last 24 Hours: Active Orders 24 hr Category Date Time Status Patient Status [ADT] Routine ADT 08/05/17 12:38 Active Ambulate [RC] ASDIRECTED Care 08/05/17 12:37 Active Ambulate [RC] PER UNIT ROUTINE Care 08/05/17 12:37 Active Antiembolic Devices [RC] .Routine Care 08/05/17 12:41 Active Notify Provider Vital Signs [RC] PRN Care 08/05/17 12:39 Active Oxygen Therapy [RC] PRN Care 08/05/17 12:38 Active Pulse Oximetry [RC] CONTINUOUS Care 08/05/17 12:40 Active RT Incentive Spirometry [RC] ASDIRECTED Care 08/05/17 09:00 Active Up With Assistance [RC] ASDIRECTED Care 08/05/17 12:37 Active Up ad Helen [RC] ASDIRECTED Care 08/05/17 12:37 Active Up to Chair [RC] ASDIRECTED Care 08/05/17 12:37 Active VTE/DVT Education [RC] Click to Edit Care 08/05/17 12:41 Active Vital Signs [RC] PER UNIT ROUTINE Care 08/05/17 12:38 Active Respiratory Care Assess and Treatment [CONS] Routine Cons 08/05/17 12:37 Active Advance Diet Instructions [DIET] Diet 08/05/17 Dinner Active CULTURE ANAEROBIC [RM] Routine Lab 08/05/17 13:19 Results CULTURE WOUND + SMEAR [RM] Routine Lab 08/05/17 13:19 Results ARIPiprazole [Abilify] Med 08/05/17 16:00 Active 5 mg PO DAILY D5 1/2 NS w/ 20 mEq/L KCl 1,000 ml Med 08/05/17 12:45 Active IV ASDIRECTED EPINEPHrine [Adrenalin] Med 08/05/17 12:36 Active 0 mg SUBCUT ASDIRECTED PRN Estradiol Med 08/06/17 09:00 Active 2 mg PO DAILY FLU Vacc [id number] 36Mos UP/PF [Fluzone Quad [id number]] Med 08/06/17 10:00 Once 60 mcg IM .ONCE ONE Gabapentin [Neurontin] Med 08/05/17 14:00 Active 100 mg PO TID Ketorolac [Toradol] Med 08/06/17 06:45 Ordered 30 mg IVPUSH Q6H Methylphenidate [Ritalin] Med 08/05/17 14:00 Active 20 mg PO TID Naloxone [Narcan] Med 08/05/17 13:19 Active 0.1 mg IV ASDIRECTED PRN Nitroglycerin [Nitrostat] Med 08/05/17 12:47 Active 0.4 mg SL ASDIRECTED PRN Ondansetron [Zofran] Med 08/05/17 20:33 Active 4 mg IVPUSH Q4H PRN Pantoprazole [ProTONIX] Med 08/05/17 16:00 Active 40 mg PO DAILY@0730 buPROPion [Wellbutrin XL] Med 08/05/17 16:00 Active 300 mg PO DAILY fentaNYL/Normal Saline [fentaNYL in NS 20 MCG/ML 30 ML Med 08/05/17 20:35 Active ORTHOPEDICS TEACHER] See Protocol IV ASDIRECTED PRN traZODone Med 08/05/17 12:36 Active 50 mg PO BEDTIME PRN Abdominal Binder [OM.PC] Per Unit Routine Oth 08/05/17 12:39 Ordered DVT/VTE Prophylaxis Reflex [OM.PC] Per Unit Routine Oth 08/05/17 12:40 Ordered SCD [Sequential Compression Device] [OM.PC] Routine Oth 08/05/17 09:00 Ordered Resuscitation Status Routine Resus Stat 08/05/17 12:37 Ordered Medication Orders Aripiprazole (Abilify) 5 mg PO DAILY [facility] Last Admin: 08/05/17 16:01 Dose: Not Given Bupropion HCl (Wellbutrin Xl) 300 mg PO DAILY [facility] Last Admin: 08/05/17 16:02 Dose: Not Given Epinephrine HCl (Adrenalin 1:1000) 0 mg SUBCUT ASDIRECTED PRN PRN Reason: Allergies Estradiol (Estradiol) 2 mg PO DAILY [facility] Fentanyl Citrate (Fentanyl In Ns 20 Mcg/Ml 30 Ml Pararescue Manager) 0 mcg IV ASDIRECTED PRN; Protocol PRN Reason: Pain Last Admin: 08/06/17 06:21 Dose: 600 mcg Gabapentin (Neurontin) 100 mg PO TID [facility] Last Admin: 08/05/17 21:39 Dose: Not Given Admin: 08/05/17 16:01 Dose: Not Given Potassium Chloride/Dextrose/Sod Cl (D5 1/2 Ns W/ 20 Meq/L Kcl) 1,000 mls @ 125 mls/hr IV ASDIRECTED [facility] Last Admin: 08/06/17 06:20 Dose: 125 mls/hr Infusion: 08/06/17 06:20 Dose: 125 mls/hr Admin: 08/05/17 22:40 Dose: 125 mls/hr Infusion: 08/05/17 22:34 Dose: 125 mls/hr Admin: 08/05/17 14:34 Dose: 125 mls/hr Influenza Virus Vaccine (Fluzone Quad [id number]) 60 mcg IM .ONCE ONE Stop: 08/06/17 10:01 Methylphenidate HCl (Ritalin) 20 mg PO TID [facility] Last Admin: 08/05/17 21:40 Dose: Not Given Admin: 08/05/17 16:01 Dose: Not Given Naloxone HCl (Narcan) 0.1 mg IV ASDIRECTED PRN PRN Reason: RESP DISTRESS Nitroglycerin (Nitrostat) 0.4 mg SL ASDIRECTED PRN PRN Reason: CHEST PAIN Ondansetron HCl (Zofran) 4 mg IVPUSH Q4H PRN PRN Reason: Nausea/Vomiting Last Admin: 08/06/17 02:34 Dose: 4 mg Admin: 08/05/17 21:33 Dose: 4 mg Pantoprazole Sodium (Protonix) 40 mg PO DAILY@0730 [facility] Last Admin: 08/05/17 16:02 Dose: Not Given Trazodone HCl (Trazodone) 50 mg PO BEDTIME PRN PRN Reason: Sleep - Assessment Assessment (Free Text/Narrative):: She has been nauseated and not getting good pain relief with Fentanyl. Has only sipped water. Hgb OK. LFT's OK. - Plan Plan (Free Text/Narrative):: Try Toradol. She can not go home yet.
[2017-08-06] MEDS ORDERED: Ketorolac 30 MG/ML SDV IVPUSH SCH (07:00)
[2017-08-06] MEDS: Ketorolac 30 MG/ML SDV IVPUSH SCH ×3 (07:33→19:57)
[2017-08-06] MEDS: Pantoprazole 40 MG Tab.CR PO SCH (07:48)
[2017-08-06] MEDS ORDERED: FLU Vacc QS 2017-18 (36mos UP)/PF 60 MCG/0.5 ML Syringe IM ONE ×2 (08:00→10:00)
--- NOTE | 2017-08-06 08:17 | OR ---
DATE OF PROCEDURE: 08/05/2017 PREOPERATIVE DIAGNOSIS: Biliary dyskinesia. POSTOPERATIVE DIAGNOSES: 1. Biliary dyskinesia with chronic cholecystitis. 2. Two adjacent small masses diaphragm. PROCEDURE: Laparoscopic cholecystectomy. SURGEON: Nishant Ryan MD. ANESTHESIA: General endotracheal. INDICATION: This 47-year-old white female complains of postprandial upper abdominal pain. Ultrasound and CAT scan were unremarkable. Upper GI endoscopy was basically unremarkable. She had a CCK stimulated HIDA scan with a normal ejection fraction but when the CCK was injected, she complained bitterly of the same pain of which she has been complaining. Liver functions were unremarkable. No ductal dilatation. She is admitted for a laparoscopic cholecystectomy. I counseled her for surgery including risks and alternatives, and she gave her informed consent to proceed. DESCRIPTION OF PROCEDURE: After adequate general endotracheal anesthesia was obtained, the patient's abdomen was prepped and draped in the usual sterile fashion. Time-out was held. An infraumbilical semicircular incision was made. Under direct vision, a 12 mm port was introduced in the abdomen using the Optiview technique. The camera was introduced into the abdomen and the abdomen was insufflated to a pressure of 20 mmHg with carbon dioxide. No evidence of intraabdominal injury was seen. Under direct vision, a 12 mm port was placed in the epigastrium, and a 5 mm port was placed in the right lower quadrant. The gallbladder was noted to have dense adhesions of omentum to it, these were carefully dissected free. The cystic artery was noted to course across the cystic duct. It was clipped a couple times proximally and once distally and divided between clips. The cystic duct was noted to be markedly dilated; it was quite large, too large to remove with clips. We divided with the endoscopic ZULLY using a martin load. The gallbladder was then dissected free from the gallbladder bed using Bovie electrocautery. The gallbladder was then placed in a sample retrieval bag and elevated up through the anterior abdominal wall via the epigastric port site. At this point, we removed two small masses, which were adjacent to each other on the diaphragm, these were sentwwwwwwwwws as one specimen. They were grasped, elevated, and excised. They were sent to Pathology. Hemostasis was noted. All looked well. The fascial closure device was used to place an 0 Vicryl stitch in the epigastric fascial defect. The infraumbilical port was removed with hemostasis noted. An interrupted stitch of 0 Vicryl was used to close this fascial defect. We then evacuated as much CO2 as we could from the abdomen via the 5 mm port site in the right lower quadrant and then this port was removed. Lidocaine 1% with epinephrine in a 50:50 mix with 0.5% Marcaine was infiltrated about all incisions. 4-0 Vicryl using a subcuticular stitch was placed to approximate the skin of the incisions. Dermabond was applied. The anesthesia was reversed. She was extubated and brought to the recovery room in good condition. Nishant Ryan MD /[id number] MTDD
[2017-08-06] MEDS ORDERED: Pantoprazole 40 MG Tab.CR PO SCH (09:00)
[2017-08-06] MEDS: Gabapentin 100 MG Cap PO SCH ×3 (11:09→20:50)
[2017-08-06] MEDS: Estradiol 0.5 MG Tab PO SCH (11:09)
[2017-08-06] MEDS: buPROPion 150 MG Tab.ER PO SCH (11:09)
[2017-08-06] MEDS: ARIPiprazole 10 MG Tab PO SCH (11:09)
[2017-08-06] MEDS: Methylphenidate 10 MG Tab PO SCH ×3 (11:16→20:50)
[2017-08-06] MEDS: Acetaminophen/HYDROcodone 325-5 MG Tab PO PRN ×2 (17:01→20:50)
[2017-08-06] MEDS ORDERED: Methylphenidate 10 MG Tab ONE (20:48)
[2017-08-06] MEDS ORDERED: Ondansetron 4 MG Tab.DIS PO PRN (23:04)
[2017-08-06] MEDS: Acetaminophen/oxyCODONE 325-5 MG Tab PO PRN (23:18)
[2017-08-07] MEDS: Ketorolac 30 MG/ML SDV IVPUSH SCH ×2 (01:39→07:20)
[2017-08-07] MEDS: Acetaminophen/oxyCODONE 325-5 MG Tab PO PRN ×2 (03:20→10:41)
[2017-08-07] MEDS: Pantoprazole 40 MG Tab.CR PO SCH (07:20)
[2017-08-07] MEDS: Gabapentin 100 MG Cap PO SCH (08:13)
[2017-08-07] MEDS: Estradiol 0.5 MG Tab PO SCH (08:13)
[2017-08-07] MEDS: ARIPiprazole 10 MG Tab PO SCH (08:13)
[2017-08-07] MEDS: buPROPion 150 MG Tab.ER PO SCH (08:13)
[2017-08-07] MEDS ORDERED: Methylphenidate 10 MG Tab PO SCH (09:00)
[2017-08-07] MEDS ORDERED: Magnesium Hydroxide 400 MG/5 ML Susp 30 ML Cup PO PRN (10:34)
[2017-08-07] MEDS ORDERED: Docusate Sodium 100 MG Cap PO PRN (10:34)
[2017-08-07] MEDS ORDERED: Magnesium Hydroxide 400 MG/5 ML Susp 30 ML Cup PO ONE (11:00)
[2017-08-07 11:39] VITALS: BP 109/62
--- NOTE | 2017-08-07 12:08 | PCM.SURGPN ---
- General Info Date of Service: 08/07/17 Date of Surgery/Procedure: 08/05/17 POD#: 2 Post-Op Diagnosis: Chronic cholecystitis with biliary dyskinesia Functional Status: Reports: Pain Controlled, Tolerating Diet, Ambulating, Urinating - Review of Systems General: Reports: No Symptoms HEENT: Reports: No Symptoms Pulmonary: Reports: No Symptoms Cardiovascular: Reports: No Symptoms Gastrointestinal: Reports: Other (Still with occasional nausea. ) Genitourinary: Reports: No Symptoms Musculoskeletal: Reports: No Symptoms Skin: Reports: No Symptoms Neurological: Reports: No Symptoms Psychiatric: Reports: No Symptoms - Patient Data Vitals - Most Recent: Last Vital Signs Temp 97.2 F 08/07/17 11:38 Pulse 73 08/07/17 11:38 Resp 18 08/07/17 11:38 BP 109/62 08/07/17 11:38 Pulse Ox 96 08/07/17 11:38 Weight - Most Recent: 199 lb 12.8 oz I&O - Last 24 Hours: Intake & Output 08/06/17 08/07/17 08/07/17 22:59 06:59 14:59 Intake Total 5421 1500 2040 Output Total 200 Balance 5421 1300 2040 Roberth Results Last 24 Hrs: Microbiology 08/05/17 13:19 Gram Stain - Final Gallbladder Fluid - Bile Wound Culture - Preliminary NO GROWTH AFTER 2 DAYS Anaerobic Culture - Preliminary NO GROWTH AFTER 2 DAYS Med Orders - Current: Current Medications Aripiprazole (Abilify) 5 mg PO DAILY [facility] Last Admin: 08/07/17 08:13 Dose: 5 mg Bupropion HCl (Wellbutrin Xl) 300 mg PO DAILY [facility] Last Admin: 08/07/17 08:13 Dose: 300 mg Docusate Sodium (Colace) 100 mg PO DAILY PRN PRN Reason: Constipation Epinephrine HCl (Adrenalin) 0 mg SUBCUT ASDIRECTED PRN PRN Reason: Allergies Estradiol (Estradiol) 2 mg PO DAILY [facility] Last Admin: 08/07/17 08:13 Dose: 2 mg Fentanyl Citrate (Fentanyl In Ns 20 Mcg/Ml [address] [employer]) 0 mcg IV ASDIRECTED PRN; Protocol PRN Reason: Pain Last Admin: 08/06/17 06:21 Dose: 600 mcg Gabapentin (Neurontin) 100 mg PO TID [facility] Last Admin: 08/07/17 08:13 Dose: 100 mg Ketorolac Tromethamine (Toradol) 30 mg IVPUSH Q6H [facility] Last Admin: 08/07/17 07:20 Dose: 30 mg Magnesium Hydroxide (Milk Of Magnesia) 30 ml PO BID PRN PRN Reason: Constipation Methylphenidate HCl (Ritalin) 20 mg PO TID [facility] Last Admin: 08/07/17 08:47 Dose: 20 mg Naloxone HCl (Narcan) 0.1 mg IV ASDIRECTED PRN PRN Reason: RESP DISTRESS Nitroglycerin (Nitrostat) 0.4 mg SL ASDIRECTED PRN PRN Reason: CHEST PAIN Ondansetron HCl (Zofran) 4 mg IVPUSH Q4H PRN PRN Reason: Nausea/Vomiting Last Admin: 08/06/17 18:45 Dose: 4 mg Ondansetron HCl (Zofran Odt) 4 mg PO Q4H PRN PRN Reason: Nausea/Vomiting Last Admin: 08/06/17 23:18 Dose: 4 mg Oxycodone/Acetaminophen (Percocet 325-5 Mg) 1 - 2 tab PO Q4H PRN PRN Reason: Pain Last Admin: 08/07/17 10:41 Dose: 1 tab Pantoprazole Sodium (Protonix) 40 mg PO DAILY@0730 [facility] Last Admin: 08/07/17 07:20 Dose: 40 mg Trazodone HCl (Trazodone) 50 mg PO BEDTIME PRN PRN Reason: Sleep Discontinued Medications Hydrocodone Bitart/Acetaminophen (Friend 325-5 Mg) 1 - 2 tab PO Q4H PRN PRN Reason: Abdominal Pain Last Admin: 08/06/17 20:50 Dose: 2 tab Bupivacaine HCl (Marcaine 0.5%) Confirm Administered Dose 50 ml .ROUTE .STK-MED ONE Stop: 08/05/17 10:28 Last Admin: 08/05/17 11:57 Dose: 20 ml Dexamethasone (Dexamethasone) Confirm Administered Dose 4 mg .ROUTE .STK-MED ONE Stop: 08/05/17 11:15 Fentanyl (Sublimaze) Confirm Administered Dose 250 mcg .ROUTE .STK-MED ONE Stop: 08/05/17 11:15 Fentanyl (Sublimaze) Confirm Administered Dose 250 mcg .ROUTE .STK-MED ONE Stop: 08/05/17 11:59 Fentanyl Citrate (Fentanyl In Ns 20 Mcg/Ml [address] [employer]) 0 mcg IV ASDIRECTED PRN; Protocol PRN Reason: PAIN Last Admin: 08/05/17 16:37 Dose: 600 mcg Glycopyrrolate (Robinul) Confirm Administered Dose 1 mg .ROUTE .STK-MED ONE Stop: 08/05/17 11:33 Hydroxyzine HCl (Vistaril) 100 mg IM ONETIME ONE Stop: 08/05/17 12:59 Last Admin: 08/05/17 13:10 Dose: 100 mg Hydroxyzine HCl (Vistaril) 100 mg IM ONETIME ONE Stop: 08/06/17 05:23 Last Admin: 08/06/17 05:42 Dose: 100 mg Cefoxitin Sodium 2 gm/ Sodium (Chloride) 50 mls @ 100 mls/hr IV ONETIME ONE Stop: 08/05/17 09:29 Last Admin: 08/05/17 11:15 Dose: 100 mls/hr Dextrose/Lactated Ringer's (Dextrose 5%-Lactated Ringers) 1,000 mls @ 100 mls/ hr IV ASDIRECTED [facility] Last Admin: 08/05/17 09:16 Dose: 100 mls/hr Potassium Chloride/Dextrose/Sod Cl (D5 1/2 Ns W/ 20 Meq/L Kcl) 1,000 mls @ 125 mls/hr IV ASDIRECTED [facility] Last Admin: 08/06/17 15:08 Dose: 125 mls/hr Influenza Virus Vaccine (Pharmacy To Dose - Influenza Vaccine) 1 each IM ONETIME ONE Stop: 08/05/17 09:01 Last Admin: 08/05/17 18:41 Dose: Not Given Influenza Virus Vaccine (Fluzone Quad [id number]) 60 mcg IM .ONCE ONE Stop: 08/06/17 08:01 Last Admin: 08/06/17 07:59 Dose: 60 mcg Lidocaine/Epinephrine (Xylocaine 1% With Epinephrine 1:100,000) Confirm Administered Dose 50 ml .ROUTE .STK-MED ONE Stop: 08/05/17 10:28 Last Admin: 08/05/17 11:57 Dose: 20 ml Lorazepam (Ativan) 0.5 mg IVPUSH ONETIME ONE Stop: 08/05/17 13:32 Last Admin: 08/05/17 13:39 Dose: 0.5 mg Magnesium Hydroxide (Milk Of Magnesia) 30 ml PO NOW ONE Stop: 08/07/17 11:01 Last Admin: 08/07/17 10:41 Dose: 30 ml Meperidine HCl (Demerol) 50 mg IM ONETIME ONE Stop: 08/05/17 13:00 Last Admin: 08/05/17 13:09 Dose: 50 mg Meperidine HCl (Demerol) 50 mg IM ONETIME ONE Stop: 08/06/17 05:23 Last Admin: 08/06/17 05:42 Dose: 50 mg Methylphenidate HCl (Ritalin) 20 mg PO TID [facility] Last Admin: 08/06/17 20:50 Dose: 20 mg Methylphenidate HCl (Ritalin) Confirm Administered Dose 10 mg .ROUTE .STK-MED ONE Stop: 08/06/17 20:49 Last Admin: 08/06/17 22:31 Dose: Not Given Neostigmine Methylsulfate (Neostigmine) Confirm Administered Dose 5 mg .ROUTE .STK-MED ONE Stop: 08/05/17 11:33 Ondansetron HCl (Zofran) Confirm Administered Dose 4 mg .ROUTE .STK-MED ONE Stop: 08/05/17 11:15 Ondansetron HCl (Zofran) 4 mg IVPUSH Q6H PRN PRN Reason: Nausea/Vomiting Last Admin: 08/05/17 17:27 Dose: 4 mg Ondansetron HCl (Zofran) 4 mg IVPUSH ONETIME ONE Stop: 08/05/17 12:48 Last Admin: 08/05/17 12:50 Dose: 4 mg Propofol (Diprivan 20 Ml) Confirm Administered Dose 200 mg .ROUTE .STK-MED ONE Stop: 08/05/17 11:15 Rocuronium Michael (Zemuron) Confirm Administered Dose 50 mg .ROUTE .STK-MED ONE Stop: 08/05/17 11:15 Scopolamine (Transderm-Scop) 1.5 mg TRDERM ONETIME ONE Stop: 08/05/17 10:36 Last Admin: 08/05/17 10:43 Dose: 1.5 mg Sodium Chloride (Normal Saline) 1,000 ml IRR .STK-MED ONE Stop: 08/05/17 12:05 Last Admin: 08/05/17 12:04 Dose: 1,000 ml - Exam Wound/Incisions: Healing Well, No Drainage General: Alert, Oriented, Cooperative, No Acute Distress Lungs: Clear to Auscultation, Normal Respiratory Effort Cardiovascular: Regular Rate, Regular Rhythm GI/Abdominal Exam: Normal Bowel Sounds, No Distention Extremities: Normal Inspection Skin: Warm, Dry, Intact Neurological: No New Focal Deficit Psy/Mental Status: Alert, Normal Affect, Normal Mood - Problem List & Annotations (1) Chronic cholecystitis SNOMED Code(s): 54773568 Code(s): K81.1 - CHRONIC CHOLECYSTITIS Status: Acute Current Visit: Yes - Problem List Review Problem List Initiated/Reviewed/Updated: Yes - My Orders Last 24 Hours: Active Orders 24 hr Category Date Time Status Ready for Discharge [RC] PER UNIT ROUTINE Care 08/07/17 12:03 Ordered Acetaminophen/oxyCODONE [Percocet 325-5 MG] Med 08/06/17 21:51 Active 1 - 2 tab PO Q4H PRN Docusate Sodium [Colace] Med 08/07/17 10:34 Active 100 mg PO DAILY PRN Magnesium Hydroxide [Milk of Magnesia] Med 08/07/17 10:34 Active 30 ml PO BID PRN Methylphenidate [Ritalin] Med 08/07/17 09:00 Active 20 mg PO TID Ondansetron [Zofran ODT] Med 08/06/17 23:04 Active 4 mg PO Q4H PRN Convert IV to Saline Lock [OM.PC] Routine Oth 08/06/17 21:51 Ordered Medication Orders Aripiprazole (Abilify) 5 mg PO DAILY [facility] Last Admin: 08/07/17 08:13 Dose: 5 mg Admin: 08/06/17 11:09 Dose: 5 mg Admin: 08/05/17 16:01 Dose: Not Given Bupropion HCl (Wellbutrin Xl) 300 mg PO DAILY [facility] Last Admin: 08/07/17 08:13 Dose: 300 mg Admin: 08/06/17 11:09 Dose: Not Given Admin: 08/05/17 16:02 Dose: Not Given Docusate Sodium (Colace) 100 mg PO DAILY PRN PRN Reason: Constipation Epinephrine HCl (Adrenalin) 0 mg SUBCUT ASDIRECTED PRN PRN Reason: Allergies Estradiol (Estradiol) 2 mg PO DAILY [facility] Last Admin: 08/07/17 08:13 Dose: 2 mg Admin: 08/06/17 11:09 Dose: 2 mg Fentanyl Citrate (Fentanyl In Ns 20 Mcg/Ml [address] [employer]) 0 mcg IV ASDIRECTED PRN; Protocol PRN Reason: Pain Last Admin: 08/06/17 06:21 Dose: 600 mcg Gabapentin (Neurontin) 100 mg PO TID [facility] Last Admin: 08/07/17 08:13 Dose: 100 mg Admin: 08/06/17 20:50 Dose: 100 mg Admin: 08/06/17 15:24 Dose: 100 mg Admin: 08/06/17 11:09 Dose: 100 mg Admin: 08/05/17 21:39 Dose: Not Given Admin: 08/05/17 16:01 Dose: Not Given Ketorolac Tromethamine (Toradol) 30 mg IVPUSH Q6H [facility] Last Admin: 08/07/17 07:20 Dose: 30 mg Admin: 08/07/17 01:39 Dose: 30 mg Admin: 08/06/17 19:57 Dose: 30 mg Admin: 08/06/17 15:01 Dose: 30 mg Admin: 08/06/17 07:33 Dose: 30 mg Magnesium Hydroxide (Milk Of Magnesia) 30 ml PO BID PRN PRN Reason: Constipation Methylphenidate HCl (Ritalin) 20 mg PO TID [facility] Last Admin: 08/07/17 08:47 Dose: 20 mg Naloxone HCl (Narcan) 0.1 mg IV ASDIRECTED PRN PRN Reason: RESP DISTRESS Nitroglycerin (Nitrostat) 0.4 mg SL ASDIRECTED PRN PRN Reason: CHEST PAIN Ondansetron HCl (Zofran) 4 mg IVPUSH Q4H PRN PRN Reason: Nausea/Vomiting Last Admin: 08/06/17 18:45 Dose: 4 mg Admin: 08/06/17 13:47 Dose: 4 mg Admin: 08/06/17 09:16 Dose: 4 mg Admin: 08/06/17 02:34 Dose: 4 mg Admin: 08/05/17 21:33 Dose: 4 mg Ondansetron HCl (Zofran Odt) 4 mg PO Q4H PRN PRN Reason: Nausea/Vomiting Last Admin: 08/06/17 23:18 Dose: 4 mg Oxycodone/Acetaminophen (Percocet 325-5 Mg) 1 - 2 tab PO Q4H PRN PRN Reason: Pain Last Admin: 08/07/17 10:41 Dose: 1 tab Admin: 08/07/17 03:20 Dose: 2 tab Admin: 08/06/17 23:18 Dose: 2 tab Pantoprazole Sodium (Protonix) 40 mg PO DAILY@0730 [facility] Last Admin: 08/07/17 07:20 Dose: 40 mg Admin: 08/06/17 07:48 Dose: 40 mg Admin: 08/05/17 16:02 Dose: Not Given Trazodone HCl (Trazodone) 50 mg PO BEDTIME PRN PRN Reason: Sleep - Assessment Assessment (Free Text/Narrative):: She appears to be doing better. She is tolerating a regular diet. - Plan Plan (Free Text/Narrative):: Discharge. See me in clinic in about two weeks.
== END 2017-08-07 13:20 | disposition home or self-care (01) ==
LOC: JP.SDS 08:25 → JP.MS 12:38 → JP.SDS 08-06 07:00
PROVIDERS: ADMIT Surgery; ATTEND Surgery
DX: K81.1 Chronic cholecystitis (principal); I25.10 Atherosclerotic heart disease of native coronary artery without angina pectoris; K21.9 Gastro-esophageal reflux disease without esophagitis; I10 Essential (primary) hypertension; F90.9 Attention-deficit hyperactivity disorder, unspecified type; I25.2 Old myocardial infarction; E78.00 Pure hypercholesterolemia, unspecified; F41.9 Anxiety disorder, unspecified; F32.9 Major depressive disorder, single episode, unspecified; Z88.8 Allergy status to other drugs, medicaments and biological substances; Z91.018 Allergy to other foods; Z79.899 Other long term (current) drug therapy; Z90.710 Acquired absence of both cervix and uterus
CPT/HCPCS: 36415; 47562; 80076; 85027; 87070; 87075; 87205; 88304; 88305; 94762; 96372; A9270; G0008; G0378; J0694; J1100; J1885; J2060; J2175; J2405; J2704; J2710; J3010; J3410; J3480; J7040; J7042; J7050; 90686

== ENCOUNTER 2017-09-20 06:36 | Day surgery (SDC) | payer MEDICAID ==
[~2017-09-20 06:36] MED LIST: Lactated Ringers 1,000 ML IV SCH
[2017-09-20] MEDS ORDERED: Lactated Ringers 1,000 ML IV SCH (07:00)
[2017-09-20] MEDS ORDERED: Midazolam 1 MG/ML 2 ML SDV ONE (07:15)
[2017-09-20] MEDS ORDERED: Propofol 200 MG/20 ML SDV ONE (07:15)
[2017-09-20] MEDS ORDERED: Dexamethasone 4 MG/ML SDV ONE (07:16)
[2017-09-20] MEDS ORDERED: Ondansetron 4 MG/2 ML SDV ONE (07:16)
[2017-09-20 09:36] VITALS: BP 124/52
--- NOTE | 2017-09-20 11:58 | OR ---
DATE OF PROCEDURE: 09/20/2017 PREOPERATIVE DIAGNOSIS: Nausea. POSTOPERATIVE DIAGNOSES: Nausea, etiology unknown, unremarkable upper endoscopy. PROCEDURE: Esophagogastroduodenoscopy. SURGEON: Nishant Ryan MD. ANESTHESIA: IV anesthesia with monitored anesthesia care. INDICATION: This 47-year-old white female underwent a recent laparoscopic cholecystectomy for abdominal pain and nausea. The nausea has persisted, the pain is resolved. She says the nausea is slowly getting better. She was taken to the operating room for upper endoscopy to see if there is any other etiology for her complaint. I counseled her for the procedure including risks and alternatives, and she gave her informed consent to proceed. PROCEDURE IN DETAIL: The patient was placed in the left lateral decubitus position. IV anesthesia was administered by the Anesthesia Service. Time-out was held. The flexible video Olympus upper endoscope was passed through her mouth, down her esophagus, and into her stomach. The scope was easily passed through the pylorus into the duodenal region its third portion. The scope was then slowly withdrawn, examining the mucosa throughout. The duodenal mucosa appeared unremarkable. The scope was brought up through the pylorus. The antrum appeared unremarkable. The scope was retroflexed. The proximal stomach appeared unremarkable. The scope was straightened and brought up to the GE junction. This appeared unremarkable. The scope was then brought up through the unremarkable appearing esophagus and was removed. She tolerated the procedure well. Nishant Ryan MD /[id number] MTDD
== END 2017-09-20 09:54 | disposition home or self-care (01) ==
LOC: JP.SDS 06:36
PROVIDERS: ATTEND Surgery
DX: R11.0 Nausea (principal); R10.9 Unspecified abdominal pain; Z88.8 Allergy status to other drugs, medicaments and biological substances; Z91.018 Allergy to other foods
CPT/HCPCS: 43235; J1100; J2250; J2405; J2704; J7120

== ENCOUNTER 2017-11-18 08:49 | Emergency (ER) | payer MEDICAID ==
[2017-11-18] MEDS ORDERED: Aspirin 81 MG Tab.Chew PO ONE (09:27)
[2017-11-18] MEDS ORDERED: Sodium Chloride 0.9% 10 ML Syringe FLUSH PRN (09:27)
[2017-11-18] MEDS ORDERED: LORazepam 2 MG/ML SDV IVPUSH ONE (09:28)
--- NOTE | 2017-11-18 09:31 | EDM.PDOC ---
ED HPI GENERAL MEDICAL PROBLEM - General Chief Complaint: Chest Pain Stated Complaint: cp Time Seen by Provider: 11/18/17 09:23 Source of Information: Reports: Patient, Family, RN Notes Reviewed History Limitations: Reports: No Limitations - History of Present Illness INITIAL COMMENTS - FREE TEXT/NARRATIVE: 47-year-old female presents to the emergency department today with complaint of chest pain, her daughter was recently involved in a motor vehicle accident when she presented on scene development of chest pain she has a history of coronary artery disease and myocardial infarction and mitral valve prolapse. Complains of shortness of breath no nausea or diaphoresis Chest Pain Score (Numeric/FACES): 6 - Related Data Allergies Allergy/AdvReac Type Severity Reaction Status Date / Time banana Allergy Severe Anaphylactic Verified 09/20/17 06:57 Shock hydromorphone [From Dilaudid] Allergy Vomiting Verified 09/20/17 06:57 morphine AdvReac Vomiting Verified 09/20/17 06:57 Home Meds: Home Meds Gabapentin [Neurontin] 100 mg PO TID 04/10/16 [History] Methylphenidate HCl [Ritalin] 40 mg PO DAILY 04/10/16 [History] ARIPiprazole [Abilify] 5 mg PO DAILY 07/25/16 [History] EPINEPHrine [Epinephrine] 1 injection SUBCNJ ASDIRECTED PRN 07/25/16 [History] Estradiol 0.5 mg PO DAILY 07/25/16 [History] buPROPion [Wellbutrin XL] 150 mg PO BID 07/25/16 [History] traZODone 50 mg PO BEDTIME PRN 07/25/16 [History] Nitroglycerin [Nitrostat] 0.3 mg SL ASDIRECTED PRN 02/08/17 [History] Aspirin [Adult Low Dose Aspirin EC] 81 mg PO DAILY 09/12/17 [History] Past Medical History Cardiovascular History: Reports: Angina, CAD, High Cholesterol, Hypertension, [place] , Other (See Below) Other Cardiovascular History: valve problems atrial Gastrointestinal History: Reports: Cholelithiasis, GERD [employer] History: Reports: Dysfunctional Uterine Bleeding, Musculoskeletal History: Reports: Fibromyalgia Neurological History: Reports: Migraines, MS Psychiatric History: Reports: ADD, ADHD, Anxiety, Depression Hematologic History: Reports: Other (See Below) Other Hematologic History: low WBCs unknown origin - Infectious Disease History Infectious Disease History: Reports: Chicken Pox - Past Surgical History HEENT Surgical History: Reports: None Cardiovascular Surgical History: Reports: None GI Surgical History: Reports: Cholecystectomy, Hernia Repair/Other, Other (See Below) Other GI Surgeries/Procedures: States gallbladder disease. Female Surgical History: Reports: Section, Hysterectomy Neurological Surgical History: Reports: None Musculoskeletal Surgical History: Reports: None Social & Family History - Family History Family Medical History: Noncontributory - Tobacco Use Smoking Status *Q: Never Smoker Second Hand Smoke Exposure: No - Caffeine Use Caffeine Use: Reports: Soda - Recreational Drug Use Recreational Drug Use: No - Living Situation & Occupation Living situation: Reports: Occupation: Employed ED ROS GENERAL - Review of Systems Review Of Systems: See Below Constitutional: Reports: No Symptoms HEENT: Reports: No Symptoms Respiratory: Reports: Shortness of Breath Cardiovascular: Reports: Chest Pain GI/Abdominal: Reports: No Symptoms : Reports: No Symptoms Musculoskeletal: Reports: No Symptoms Skin: Reports: No Symptoms Neurological: Reports: No Symptoms ED EXAM, GENERAL - Physical Exam Exam: See Below Free Text/Narrative:: General: Female, tearful, alert and oriented x3 HEENT: head is atraumatic normocephalic, eyes pupils equal round reactive to light, sclera clear no conjunctivitis appreciated. Ears tympanic membranes clear and alston landmarks and light reflex are present bilaterally canals are clear. Nose no septal deviation, nares are clear, no blood present. Mouth mucosa is moist and pink no erythema or exudate noted in soft palate, tongue is midline uvula is midline , dentition is intact. Neck: Supple no thyromegaly no tracheal deviation. Nodes: Cervical nodes subclavicular nodes nontender no palpable lymphadenopathy noted. Lungs: clear to auscultation bilaterally with symmetrical respirations, no adventitious noise appreciated. CV: Regular rate and rhythm S1 and S2 appreciated no murmurs rubs or gallops noted. Abdomen: Soft, nontender, no palpable masses or organomegaly appreciated, no distention no guarding bowel sounds are present, . Neuro: Cranial nerves II through XII grossly intact Skin: Warm and dry, intact Extremities: No lower extremity edema appreciated, pedal pulse is +2. Course - Vital Signs Last Recorded V/S: Last Vital Signs Temp 97.2 F 11/18/17 08:56 Pulse 72 03/26/18 11:30 Resp 14 11/18/17 11:30 BP 116/59 L 11/18/17 11:30 Pulse Ox 97 11/18/17 11:30 - Orders/Labs/Meds Orders: Active Orders 24 hr Category Date Time Status Cardiac Monitoring [RC] .As Directed Care 11/18/17 09:27 Active EKG Documentation Completion [RC] ASDIRECTED Care 11/18/17 09:28 Active Peripheral IV Care [RC] . DIRECTED Care 11/18/17 09:28 Active Sodium Chloride 0.9% [Saline Flush] Med 11/18/17 09:27 Active 10 ml FLUSH ASDIRECTED PRN Peripheral IV Insertion Adult [OM.PC] Stat Oth 11/18/17 09:27 Ordered Saline Lock Insert [OM.PC] Stat Oth 11/18/17 09:27 Ordered EKG 12 Lead [EK] Stat Ther 11/18/17 09:28 Ordered Medication Orders Sodium Chloride (Saline Flush) 10 ml FLUSH ASDIRECTED PRN PRN Reason: Keep Vein Open Last Admin: 11/18/17 09:48 Dose: 10 ml Labs: Laboratory Tests 11/18/17 11/18/17 11/18/17 Range/Units 09:40 09:40 12:40 WBC 5.2 (4.5-11.0) K/uL RBC 4.38 (3.30-5.50) M/uL Hgb 12.6 (12.0-15.0) g/dL Hct 39.2 (36.0-48.0) % MCV 90 (80-98) fL MCH 29 (27-31) pg MCHC 32 (32-36) % Plt Count 210 (150-400) K/uL Neut % (Auto) 71 H (36-66) % Lymph % (Auto) 18 L (24-44) % [place] % (Auto) 8 H (2-6) % Eos % (Auto) 3 (2-4) % Baso % (Auto) 0 (0-1) % Sodium 141 (140-148) mmol/L Potassium 4.2 (3.6-5.2) mmol/L Chloride 108 (100-108) mmol/L Carbon Dioxide 26 (21-32) mmol/L Anion Gap 6.8 (5.0-14.0) mmol/L BUN 17 (7-18) mg/dL Creatinine 1.0 (0.6-1.0) mg/dL Est Cr Clr Drug Dosing 71.67 mL/min Estimated GFR (MDRD) 60 (>60) Glucose 97 (74-106) mg/dL Calcium 9.0 (8.5-10.1) mg/dL Total Bilirubin 0.2 (0.2-1.0) mg/dL AST 16 (15-37) U/L ALT 18 (12-78) U/L Alkaline Phosphatase 95 (46-116) U/L CK-MB (CK-2) 0.5 (0-3.6) mg/mL Troponin I < 0.017 < 0.017 (0.000-0.056) ng/mL Total Protein 7.6 (6.4-8.2) g/dL Albumin 3.3 L (3.4-5.0) g/dL Globulin 4.3 H (2.3-3.5) g/dL Albumin/Globulin Ratio 0.8 L (1.2-2.2) Meds: Medications Generic Name Dose Route Start Last Admin Trade Name Quique PRN Reason Stop Dose Admin Sodium Chloride 10 ml 11/18/17 09:27 11/18/17 09:48 Saline Flush FLUSH 10 ml ASDIRECTED PRN Administration Keep Vein Open Discontinued Medications Generic Name Dose Route Start Last Admin Trade Name Quique PRN Reason Stop Dose Admin Aspirin 324 mg 11/18/17 09:27 11/18/17 09:35 Aspirin PO 11/18/17 09:28 324 mg ONETIME ONE Administration Al Hydroxide/Mg Hydroxide 15 0 ml 11/18/17 13:54 11/18/17 14:10 ml/ Lidocaine HCl 15 ml PO 11/18/17 13:55 15 ml ONETIME ONE Administration Fentanyl 50 mcg 11/18/17 10:37 11/18/17 10:47 Sublimaze IVPUSH 11/18/17 10:38 50 mcg ONETIME ONE Administration Lorazepam 1 mg 11/18/17 09:28 11/18/17 09:35 Ativan IVPUSH 11/18/17 09:29 1 mg ONETIME ONE Administration Nitroglycerin 0.4 mg 11/18/17 10:37 11/18/17 10:51 Nitrostat SL 11/18/17 10:38 0.4 mg ONETIME ONE Administration - Re-Assessments/Exams Free Text/Narrative Re-Assessment/Exam: 11/18/17 10:39 Heart score of 4 Departure - Departure Time of Disposition: 14:37 Disposition: Home, Self-Care 01 Condition: Fair Clinical Impression: Atypical chest pain Referrals: PCP,None [Primary Care Provider] - Forms: ED Department Discharge Additional Instructions: Use ibuprofen or Tylenol for pain control, Please followup with your primary care provider in 3-5 days if not better, please call return to the emergency department with worsening of symptoms. - My Orders Last 24 Hours: My Active Orders 11/18/17 09:27 Cardiac Monitoring [RC] .As Directed Sodium Chloride 0.9% [Saline Flush] 10 ml FLUSH ASDIRECTED PRN Peripheral IV Insertion Adult [OM.PC] Stat Saline Lock Insert [OM.PC] Stat 11/18/17 09:28 EKG Documentation Completion [RC] ASDIRECTED Peripheral IV Care [RC] . DIRECTED EKG 12 Lead [EK] Stat - Assessment/Plan Last 24 Hours: My Active Orders 11/18/17 09:27 Cardiac Monitoring [RC] .As Directed Sodium Chloride 0.9% [Saline Flush] 10 ml FLUSH ASDIRECTED PRN Peripheral IV Insertion Adult [OM.PC] Stat Saline Lock Insert [OM.PC] Stat 11/18/17 09:28 EKG Documentation Completion [RC] ASDIRECTED Peripheral IV Care [RC] . DIRECTED EKG 12 Lead [EK] Stat Plan: Assessment Acuity = acute Site and laterality = atypical chest pain Etiology = unclear etiology Manifestations = none Location of injury = Home Lab values = CBC, CMP, troponin all negative EKG demonstrates a sinus rhythm no ST changes or depressions chest x-ray shows no acute process Plan Tried nitroglycerin morphine aspirin GI cocktail no change in pain Ativan again no change in pain, her troponin was negative 2 she had a stress test in August of this year which by her report they did not do any intervention at that time. Have her try some ibuprofen at home follow-up with primary care 3-5 days for reevaluation This note was dictated using [employer] voice recognition software please call with any questions on syntax or bossman.
[2017-11-18] MEDS ORDERED: fentaNYL 100 MCG/2 ML SDV IVPUSH ONE (10:37)
[2017-11-18] MEDS ORDERED: Nitroglycerin 0.4 MG Tab.SL SL ONE (10:37)
--- NOTE | 2017-11-18 10:53 | CR ---
Chest 2V HISTORY: No Clinical Info FINDINGS: Heart size within normal limits. Pulmonary vasculature within normal limits. Left lung is c lear. Trace pleural effusion or pleural thickening right costophrenic angle. Mild elevation right hem idiaphragm. Emphysematous change.
[2017-11-18] MEDS ORDERED: Alum Hydrox/Mag Hydrox/Simeth 15 ML, Lidocaine 2% 15 ML PO ONE ×2 (13:54)
[2017-11-18 14:56] VITALS: BP 123/62
== END 2017-11-18 14:58 | disposition home or self-care (01) ==
LOC: JP.ED 08:49
DX: R07.89 Other chest pain (principal); E78.00 Pure hypercholesterolemia, unspecified; I10 Essential (primary) hypertension; I25.2 Old myocardial infarction; Z91.018 Allergy to other foods; Z88.5 Allergy status to narcotic agent; Z79.899 Other long term (current) drug therapy; Z79.82 Long term (current) use of aspirin
CPT/HCPCS: 36415; 71046; 80053; 82553; 84484; 85025; 93005; 96374; 96375; 99285; A9270; J2060; J3010; J7050

== ENCOUNTER 2018-01-26 14:13 | Emergency (ER) | payer MEDICAID ==
[2018-01-26 14:23] VITALS: BP 82/58
--- NOTE | 2018-01-26 15:10 | EDM.PDOC ---
ED HPI GENERAL MEDICAL PROBLEM - General Chief Complaint: Syncope Stated Complaint: CHEST PAIN Time Seen by Provider: 01/26/18 15:00 Source of Information: Reports: Patient, Family History Limitations: Reports: No Limitations - History of Present Illness INITIAL COMMENTS - FREE TEXT/NARRATIVE: Nita is a 47-year-old female, history of hypertension and heart valve disease who presents to the emergency department today after having a syncopal episode at home lasting approximately 1 minute. Patient has had these in the past and typically they happen when patient becomes anxious or nervous which was Saturday. Patient does report she had a prior episode of chest pain which is essentially resolved. Patient denies any other complaints today, her daughters were by her when she had syncopal episode and did lower her to the ground so she did not sustain any trauma. Patient arrives here mildly hypotensive, which is otherwise hemodynamically stable. Patient does report that she has had 2 heart attacks in the past but never had stents placed. Patient reports her blood pressure normally runs high and she is not on any medications for her blood pressure. Onset: Today, Sudden - Related Data Allergies Allergy/AdvReac Type Severity Reaction Status Date / Time banana Allergy Severe Anaphylactic Verified 01/26/18 14:38 Shock hydromorphone [From Dilaudid] Allergy Vomiting Verified 01/26/18 14:38 morphine AdvReac Vomiting Verified 01/26/18 14:38 Home Meds: Home Meds Gabapentin [Neurontin] 100 mg PO TID 04/10/16 [History] Methylphenidate HCl [Ritalin] 40 mg PO DAILY 04/10/16 [History] ARIPiprazole [Abilify] 5 mg PO DAILY 07/25/16 [History] EPINEPHrine [Epinephrine] 1 injection SUBCNJ ASDIRECTED PRN 07/25/16 [History] Estradiol 0.5 mg PO DAILY 07/25/16 [History] buPROPion [Wellbutrin XL] 150 mg PO BID 07/25/16 [History] traZODone 50 mg PO BEDTIME PRN 07/25/16 [History] Nitroglycerin [Nitrostat] 0.3 mg SL ASDIRECTED PRN 02/08/17 [History] Aspirin [Adult Low Dose Aspirin EC] 81 mg PO DAILY 09/12/17 [History] Metoprolol Succinate [Toprol XL] 1 tab PO DAILY 01/26/18 [History] Past Medical History HEENT History: Reports: None Cardiovascular History: Reports: Angina, CAD, High Cholesterol, Hypertension, [place] , Other (See Below) Other Cardiovascular History: valve problems atrial Gastrointestinal History: Reports: Cholelithiasis, GERD Genitourinary History: Reports: None [employer]PER[employer]OR [employer]SING History: Reports: Dysfunctional Uterine Bleeding, Musculoskeletal History: Reports: Fibromyalgia Neurological History: Reports: Migraines, MS Psychiatric History: Reports: ADD, ADHD, Anxiety, Depression Hematologic History: Reports: Other (See Below) Other Hematologic History: low WBCs unknown origin - Infectious Disease History Infectious Disease History: Reports: Chicken Pox - Past Surgical History HEENT Surgical History: Reports: None Cardiovascular Surgical History: Reports: None GI Surgical History: Reports: Cholecystectomy, Hernia Repair/Other, Other (See Below) Other GI Surgeries/Procedures: States gallbladder disease. Female Surgical History: Reports: Section, Hysterectomy Neurological Surgical History: Reports: None Musculoskeletal Surgical History: Reports: None Social & Family History - Family History Family Medical History: Noncontributory - Tobacco Use Smoking Status *Q: Never Smoker - Caffeine Use Caffeine Use: Reports: Soda - Living Situation & Occupation Living situation: Reports: Occupation: Employed ED ROS GENERAL - Review of Systems Review Of Systems: ROS reveals no pertinent complaints other than HPI. - Physical Exam Exam: See Below Exam Limited By: No Limitations General Appearance: Alert, WD/WN, No Apparent Distress Eye Exam: Bilateral Eye: EOMI, PERRL Ears: Normal External Exam Nose: Normal Inspection Throat/Mouth: Normal Inspection, Normal Oropharynx Head Exam: Atraumatic Neck: Normal Inspection Respiratory/Chest: No Respiratory Distress, Lungs Clear Cardiovascular: Normal Peripheral Pulses, Regular Rate, Rhythm, No Murmur GI/Abdominal: Normal Bowel Sounds, Soft, Non-Tender, Hepatomegaly (Female) Exam: Normal External Exam Neuro Exam (Abbreviated): Alert, Oriented, CN II-XII Intact, No Motor/Sensory Deficits Extremities: Normal Inspection Psychiatric: Normal Affect, Normal Mood Skin Exam: Warm, Dry, Intact Course - Vital Signs Last Recorded V/S: Last Vital Signs Temp 36.2 C 01/26/18 14:48 Pulse 69 01/26/18 14:48 Resp 26 H 01/26/18 14:48 BP 82/58 L 01/26/18 14:48 Pulse Ox 99 01/26/18 14:48 Nita is a 47-year-old female who presents to the emergency department today after having a syncopal episode and chest pain. Patient arrives here chest pain- free. EKG on arrival is negative for any acute ischemic findings. Peripheral IV was established and patient was given a liter of normal saline given her soft blood pressure on arrival here which has since improved 200 systolic. Patient is alert and oriented, she has no neural/focal deficits. Blood work today reveals a normal white count, hemoglobin is mildly low at 11.1. CMP reveals creatinine of 1.2 with a GFR of 49. Albumin is 2.9 and calcium is low at 8.1 consistent with a mild hypocalcemia. Troponin was undetectable. Given reassuring workup and exam findings, I feel the patient is stable to be discharged home. Given her several episodes of syncope in the past they do not feel that this is related to an acute cardiac event. Patient has had no bradycardia or abnormal rhythm since she's been here. I discussed findings of today's exam in test results with patient. I encouraged her to stay well-hydrated. I would like patient follow up in primary care next week for reevaluation. Reasons to return to the emergency department were discussed in detail, patient is agreeable to plan of care and was discharged in stable condition. - Orders/Labs/Meds Orders: Active Orders 24 hr Category Date Time Status EKG Documentation Completion [RC] ASDIRECTED Care 01/26/18 15:06 Active Sodium Chloride 0.9% [Normal Saline] 1,000 ml Med 01/26/18 15:15 Active IV ASDIRECTED EKG 12 Lead [EK] Stat Ther 01/26/18 15:06 Ordered Medication Orders Sodium Chloride (Normal Saline) 1,000 mls @ 1,000 mls/hr IV ASDIRECTED DERICK Last Admin: 01/26/18 16:03 Dose: 1,000 mls/hr Labs: Laboratory Tests 01/26/18 01/26/18 01/26/18 Range/Units 15:22 15:22 15:22 WBC 5.4 (4.5-11.0) K/uL RBC 3.88 (3.30-5.50) M/uL Hgb 11.1 L (12.0-15.0) g/dL Hct 35.0 L (36.0-48.0) % MCV 90 (80-98) fL MCH 29 (27-31) pg MCHC 32 (32-36) % Plt Count 235 (150-400) K/uL Neut % (Auto) 60 (36-66) % Lymph % (Auto) 25 (24-44) % [place] % (Auto) 11 H (2-6) % Eos % (Auto) 4 (2-4) % Baso % (Auto) 1 (0-1) % Sodium 141 (140-148) mmol/L Potassium 3.8 (3.6-5.2) mmol/L Chloride 107 (100-108) mmol/L Carbon Dioxide 29 (21-32) mmol/L Anion Gap 4.8 L (5.0-14.0) mmol/L BUN 16 (7-18) mg/dL Creatinine 1.2 H (0.6-1.0) mg/dL Est Cr Clr Drug Dosing 59.72 mL/min Estimated GFR (MDRD) 49 L (>60) Glucose 104 (74-106) mg/dL Calcium 8.1 L (8.5-10.1) mg/dL Total Bilirubin 0.2 (0.2-1.0) mg/dL AST 13 L (15-37) U/L ALT 22 (12-78) U/L Alkaline Phosphatase 103 (46-116) U/L Troponin I < 0.017 (0.000-0.056) ng/mL Total Protein 7.0 (6.4-8.2) g/dL Albumin 2.9 L (3.4-5.0) g/dL Globulin 4.1 H (2.3-3.5) g/dL Albumin/Globulin Ratio 0.7 L (1.2-2.2) TSH, Ultra Sensitive 0.672 (0.358-3.740) uIU/mL Meds: Medications Generic Name Dose Route Start Last Admin Trade Name Freq PRN Reason Stop Dose Admin Sodium Chloride 1,000 mls @ 1,000 mls/hr 01/26/18 15:15 01/26/18 16:03 Normal Saline IV 1,000 mls/hr ASDIRECTED DERICK Administration Departure - Departure Time of Disposition: 17:15 Disposition: Home, Self-Care 01 Condition: Good Clinical Impression: Syncope - Discharge Information Instructions: Syncope, [id number] Referrals: PCP,None [Primary Care Provider] - Forms: ED Department Discharge Additional Instructions: Nita, Please make sure you are staying well hydrated. Your kidney function was mildly elevated today, this with your low blood pressure tells me you are not drinking enough fluids so please work on this. I would like you to follow up with your primary care provider next week for follow up. If you develop any worsening symptoms please return to the ED. Take care, it was nice meeting you. - My Orders Last 24 Hours: My Active Orders 01/26/18 15:06 EKG Documentation Completion [RC] ASDIRECTED EKG 12 Lead [EK] Stat 01/26/18 15:15 Sodium Chloride 0.9% [Normal Saline] 1,000 ml IV ASDIRECTED - Assessment/Plan Last 24 Hours: My Active Orders 01/26/18 15:06 EKG Documentation Completion [RC] ASDIRECTED EKG 12 Lead [EK] Stat 01/26/18 15:15 Sodium Chloride 0.9% [Normal Saline] 1,000 ml IV ASDIRECTED
[2018-01-26] MEDS ORDERED: Sodium Chloride 0.9% 1,000 ML IV SCH (15:15)
== END 2018-01-26 17:58 | disposition home or self-care (01) ==
LOC: JP.ED 14:13
DX: R55 Syncope and collapse (principal); R07.9 Chest pain, unspecified; I10 Essential (primary) hypertension; E78.00 Pure hypercholesterolemia, unspecified; I25.2 Old myocardial infarction; F41.9 Anxiety disorder, unspecified; F32.9 Major depressive disorder, single episode, unspecified; K21.9 Gastro-esophageal reflux disease without esophagitis; Z79.82 Long term (current) use of aspirin; Z79.899 Other long term (current) drug therapy; Z88.5 Allergy status to narcotic agent; Z91.018 Allergy to other foods; Z88.6 Allergy status to analgesic agent
CPT/HCPCS: 36415; 80053; 84443; 84484; 85025; 93005; 96360; 99285; J7030

== ENCOUNTER 2018-02-13 15:56 | Emergency (ER) | payer MEDICAID ==
--- NOTE | 2018-02-13 17:24 | EDM.PDOC ---
ED HPI GENERAL MEDICAL PROBLEM - General Chief Complaint: Chest Pain Stated Complaint: [facility] Time Seen by Provider: 02/13/18 16:25 Source of Information: Reports: Patient History Limitations: Reports: No Limitations - History of Present Illness INITIAL COMMENTS - FREE TEXT/NARRATIVE: PT HAD AN EPISODE OF SYNCOPE AFTER BECOMINMG VERY ANGRY WITH HER DAUGHTER . sHE HAD CHEST PAIN THAT FOLLOWED THE SYNCOPE. a NITRO WAS GIVEN AND THE PAIN RESOLVED. sHE HAS A HISTORY OF MITRAL VALVE PROLAPSE. Onset: Today, Sudden Duration: Hour(s): Location: Reports: Chest Associated Symptoms: Reports: Chest Pain, Malaise, Syncope Denies Pain Score (Numeric/FACES): 0 - Related Data Allergies Allergy/AdvReac Type Severity Reaction Status Date / Time banana Allergy Severe Anaphylactic Verified 02/13/18 16:27 Shock hydromorphone [From Dilaudid] Allergy Vomiting Verified 02/13/18 16:27 morphine AdvReac Vomiting Verified 02/13/18 16:27 Home Meds: Home Meds Gabapentin [Neurontin] 100 mg PO TID 04/10/16 [History] Methylphenidate HCl [Ritalin] 40 mg PO DAILY 04/10/16 [History] ARIPiprazole [Abilify] 5 mg PO DAILY 07/25/16 [History] EPINEPHrine [Epinephrine] 1 injection SUBCNJ ASDIRECTED PRN 07/25/16 [History] Estradiol 0.5 mg PO DAILY 07/25/16 [History] buPROPion [Wellbutrin XL] 150 mg PO BID 07/25/16 [History] traZODone 50 mg PO BEDTIME PRN 07/25/16 [History] Nitroglycerin [Nitrostat] 0.3 mg SL ASDIRECTED PRN 02/08/17 [History] Aspirin [Adult Low Dose Aspirin EC] 81 mg PO DAILY 09/12/17 [History] Metoprolol Succinate [Toprol XL] 1 tab PO DAILY 01/26/18 [History] Past Medical History HEENT History: Reports: None Cardiovascular History: Reports: Angina, CAD, High Cholesterol, Hypertension, [place] , Other (See Below) Other Cardiovascular History: valve problems atrial Gastrointestinal History: Reports: Cholelithiasis, GERD Genitourinary History: Reports: None 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, Musculoskeletal History: Reports: Fibromyalgia Neurological History: Reports: Migraines, MS Psychiatric History: Reports: ADD, ADHD, Anxiety, Depression Hematologic History: Reports: Other (See Below) Other Hematologic History: low WBCs unknown origin - Infectious Disease History Infectious Disease History: Reports: Chicken Pox - Past Surgical History HEENT Surgical History: Reports: None Cardiovascular Surgical History: Reports: None GI Surgical History: Reports: Cholecystectomy, Hernia Repair/Other, Other (See Below) Female Surgical History: Reports: Section, Hysterectomy Neurological Surgical History: Reports: None Musculoskeletal Surgical History: Reports: None Social & Family History - Family History Family Medical History: Noncontributory - Tobacco Use Smoking Status *Q: Never Smoker Second Hand Smoke Exposure: No - Caffeine Use Caffeine Use: Reports: Soda - Recreational Drug Use Recreational Drug Use: No - Living Situation & Occupation Living situation: Reports: Occupation: Employed ED ROS GENERAL - Review of Systems Review Of Systems: See Below Constitutional: Reports: No Symptoms HEENT: Reports: No Symptoms Respiratory: Reports: No Symptoms, Other (PT HAS A HISTORY OF MITRAL VALVE PROLAPSE) Endocrine: Reports: No Symptoms GI/Abdominal: Reports: No Symptoms : Reports: No Symptoms Musculoskeletal: Reports: No Symptoms Skin: Reports: No Symptoms Neurological: Reports: Syncope, Other (PT GOT VERY EMOTIONAL IN A INTERCHANGE WITH HER DAUGHTER ) Psychiatric: Reports: No Symptoms ED EXAM, GENERAL - Physical Exam Exam: See Below Free Text/Narrative:: PT ARRIVED AFTER HAVING AN EPISODE OSYNCOPE. A Exam Limited By: No Limitations General Appearance: Alert, No Apparent Distress, Other (pT HAS A HISTORY OF MITRAL VALVE PROLAPSE PUPILS ARE EQUAL AND REACTIVE. ) Ears: Normal TMs Nose: Normal Inspection Throat/Mouth: Normal Inspection Head: Atraumatic Neck: Normal Inspection Respiratory/Chest: No Respiratory Distress Cardiovascular: Regular Rate, Rhythm GI/Abdominal: Soft, Non-Tender (Female) Exam: Deferred Rectal (Female) Exam: Deferred Back Exam: Normal Inspection Extremities: Normal Inspection Neurological: Alert, Oriented, Normal Cognition Psychiatric: Normal Affect, Other (PT IS FEELING BACK TO NORMAL BUT IS VERY FATIQUED. ) Course - Vital Signs Last Recorded V/S: Last Vital Signs Temp 36.3 C 02/13/18 16:26 Pulse 74 02/13/18 16:26 Resp 14 02/13/18 16:26 BP 108/60 02/13/18 16:26 Pulse Ox 99 02/13/18 16:26 - Orders/Labs/Meds Orders: Active Orders 24 hr Category Date Time Status EKG Documentation Completion [RC] ASDIRECTED Care 02/13/18 16:45 Active EKG 12 Lead [EK] Routine Ther 02/13/18 16:45 Ordered Labs: Laboratory Tests 02/13/18 02/13/18 02/13/18 Range/Units 17:13 17:13 17:13 WBC 4.9 (4.5-11.0) K/uL RBC 3.71 (3.30-5.50) M/uL Hgb 10.8 L (12.0-15.0) g/dL Hct 33.5 L (36.0-48.0) % MCV 90 (80-98) fL MCH 29 (27-31) pg MCHC 32 (32-36) % Plt Count 251 (150-400) K/uL Neut % (Auto) 56 (36-66) % Lymph % (Auto) 29 (24-44) % [place] % (Auto) 10 H (2-6) % Eos % (Auto) 4 (2-4) % Baso % (Auto) 0 (0-1) % Sodium 143 (140-148) mmol/L Potassium 3.7 (3.6-5.2) mmol/L Chloride 108 (100-108) mmol/L Carbon Dioxide 29 (21-32) mmol/L Anion Gap 6.0 (5.0-14.0) mmol/L BUN 18 (7-18) mg/dL Creatinine 1.1 H (0.6-1.0) mg/dL Est Cr Clr Drug Dosing 67.50 mL/min Estimated GFR (MDRD) 54 L (>60) Glucose 94 (74-106) mg/dL Calcium 8.8 (8.5-10.1) mg/dL Total Bilirubin 0.2 (0.2-1.0) mg/dL AST 18 (15-37) U/L ALT 23 (12-78) U/L Alkaline Phosphatase 107 (46-116) U/L Troponin I < 0.017 (0.000-0.056) ng/mL Total Protein 7.0 (6.4-8.2) g/dL Albumin 3.0 L (3.4-5.0) g/dL Globulin 4.0 H (2.3-3.5) g/dL Albumin/Globulin Ratio 0.8 L (1.2-2.2) - Re-Assessments/Exams Free Text/Narrative Re-Assessment/Exam: 02/13/18 17:56 pT HAS A NORMAL TROP. hER EKG LOOKED GOOD. sHE IS FEELING GOOD AT THIS TIME EXCEPT FATIQUED. Departure - Departure Time of Disposition: 18:02 Disposition: Home, Self-Care 01 Condition: Fair Clinical Impression: Mitral valve prolapse, Syncope Referrals: PCP,None [Primary Care Provider] - Forms: ED Department Discharge Care Plan Goals: KEEP UPCOMING CARDIOLOGY APPT, CONT SAME MEDS. - My Orders Last 24 Hours: My Active Orders 02/13/18 16:45 EKG Documentation Completion [RC] ASDIRECTED EKG 12 Lead [EK] Routine - Assessment/Plan Last 24 Hours: My Active Orders 02/13/18 16:45 EKG Documentation Completion [RC] ASDIRECTED EKG 12 Lead [EK] Routine
[2018-02-13 18:06] VITALS: BP 118/59
== END 2018-02-13 18:12 | disposition home or self-care (01) ==
LOC: JP.ED 15:56
DX: I34.1 Nonrheumatic mitral (valve) prolapse (principal); I10 Essential (primary) hypertension; I25.2 Old myocardial infarction; E78.00 Pure hypercholesterolemia, unspecified; F41.9 Anxiety disorder, unspecified; F32.9 Major depressive disorder, single episode, unspecified; F90.9 Attention-deficit hyperactivity disorder, unspecified type; Z79.82 Long term (current) use of aspirin; Z79.899 Other long term (current) drug therapy; Z91.018 Allergy to other foods; Z88.5 Allergy status to narcotic agent; Z88.6 Allergy status to analgesic agent
CPT/HCPCS: 36415; 80053; 84484; 85025; 93005; 99285-25

== ENCOUNTER 2018-03-08 19:23 | Emergency (ER) | payer MEDICAID ==
[2018-03-08 19:35] VITALS: BP 115/52
--- NOTE | 2018-03-08 20:11 | EDM.PDOC ---
ED HPI GENERAL MEDICAL PROBLEM - General Chief Complaint: Syncope Stated Complaint: [facility] Time Seen by Provider: 03/08/18 19:30 Source of Information: Reports: Patient, EMS, Family History Limitations: Reports: No Limitations - History of Present Illness INITIAL COMMENTS - FREE TEXT/NARRATIVE: 47-year-old female was very active today, working in the heat and only drank one bottle of water all day when she was doing dishes at home became lightheaded and fell backwards and fainted. She has had a history of syncope in the past. EMS was called because she was having back discomfort, she received 2 doses of fentanyl in route. She still has some stiffness but is feeling better. Vitals are stable. Onset: Sudden Severity: Moderate Associated Symptoms: Reports: Malaise, Weakness. Denies: Chest Pain, Fever/ Chills, Headaches, Nausea/Vomiting, Shortness of Breath - Related Data Allergies Allergy/AdvReac Type Severity Reaction Status Date / Time banana Allergy Severe Anaphylactic Verified 03/08/18 19:41 Shock hydromorphone [From Dilaudid] Allergy Vomiting Verified 03/08/18 19:41 morphine AdvReac Vomiting Verified 03/08/18 19:41 Home Meds: Home Meds Gabapentin [Neurontin] 100 mg PO TID 04/10/16 [History] Methylphenidate HCl [Ritalin] 40 mg PO DAILY 04/10/16 [History] ARIPiprazole [Abilify] 5 mg PO DAILY 07/25/16 [History] EPINEPHrine [Epinephrine] 1 injection SUBCNJ ASDIRECTED PRN 07/25/16 [History] Estradiol 0.5 mg PO DAILY 07/25/16 [History] buPROPion [Wellbutrin XL] 150 mg PO BID 07/25/16 [History] traZODone 50 mg PO BEDTIME PRN 07/25/16 [History] Nitroglycerin [Nitrostat] 0.3 mg SL ASDIRECTED PRN 02/08/17 [History] Aspirin [Adult Low Dose Aspirin EC] 81 mg PO DAILY 09/12/17 [History] Metoprolol Succinate [Toprol XL] 1 tab PO DAILY 01/26/18 [History] Past Medical History HEENT History: Reports: None Cardiovascular History: Reports: Angina, CAD, High Cholesterol, Hypertension, [place] , Other (See Below) Other Cardiovascular History: valve problems atrial Gastrointestinal History: Reports: Cholelithiasis, GERD Genitourinary History: Reports: None 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, Musculoskeletal History: Reports: Fibromyalgia Neurological History: Reports: Migraines, MS Psychiatric History: Reports: ADD, ADHD, Anxiety, Depression Hematologic History: Reports: Other (See Below) Other Hematologic History: low WBCs unknown origin - Infectious Disease History Infectious Disease History: Reports: Chicken Pox - Past Surgical History HEENT Surgical History: Reports: None Cardiovascular Surgical History: Reports: None GI Surgical History: Reports: Cholecystectomy, Hernia Repair/Other, Other (See Below) Female Surgical History: Reports: Section, Hysterectomy Neurological Surgical History: Reports: None Musculoskeletal Surgical History: Reports: None Social & Family History - Family History Family Medical History: Noncontributory - Tobacco Use Smoking Status *Q: Never Smoker - Caffeine Use Caffeine Use: Reports: Soda - Living Situation & Occupation Living situation: Reports: Occupation: Employed ED ROS GENERAL - Review of Systems Review Of Systems: See Below Constitutional: Reports: Malaise, Weakness. Denies: Fever, Chills HEENT: Reports: No Symptoms Respiratory: Denies: Shortness of Breath Cardiovascular: Denies: Chest Pain GI/Abdominal: Reports: Nausea. Denies: Abdominal Pain, Vomiting Musculoskeletal: Reports: Back Pain Skin: Reports: No Symptoms Neurological: Reports: Dizziness, Syncope, Weakness - Physical Exam Exam: See Below Exam Limited By: No Limitations General Appearance: Alert, No Apparent Distress Eye Exam: Bilateral Eye: Normal Inspection Throat/Mouth: Normal Inspection, Other (Normal hydration) Head Exam: Atraumatic Neck: Supple Respiratory/Chest: No Respiratory Distress, Lungs Clear Cardiovascular: Regular Rate, Rhythm, Systolic Murmur GI/Abdominal: Soft, Non-Tender Neuro Exam (Abbreviated): Alert, Oriented, No Motor/Sensory Deficits Back Exam: Paraspinal Tenderness (She does have paraspinous tenderness of the lower thoracic spine and the lumbar area, no asymmetry or bruising) Skin Exam: Warm, Dry Course - Vital Signs Last Recorded V/S: Last Vital Signs Temp 98.6 F 03/08/18 19:47 Pulse 88 03/08/18 19:47 Resp 16 03/08/18 19:47 BP 115/52 L 03/08/18 19:47 Pulse Ox 97 03/08/18 19:47 - Re-Assessments/Exams Free Text/Narrative Re-Assessment/Exam: 03/08/18 20:09 This is several visits for this patient by ambulance this year for similar symptoms. She was reassured that her vitals are stable and she needs to drink water. No further workup needed. Departure - Departure Time of Disposition: 20:20 Disposition: Home, Self-Care 01 Condition: Good Clinical Impression: Vasovagal syncope, Dehydration - Discharge Information Instructions: Syncope, [id number] Referrals: PCP,None [Primary Care Provider] - Forms: ED Department Discharge Care Plan Goals: Drink plenty of water, increase activity and diet as tolerated. Rest tonight and recheck at any time if not improving satisfactorily, consider returning if worsening or you develop other concerns.
== END 2018-03-08 20:20 | disposition home or self-care (01) ==
LOC: JP.ED 19:23
DX: R55 Syncope and collapse (principal); E86.0 Dehydration; E78.00 Pure hypercholesterolemia, unspecified; I10 Essential (primary) hypertension; I25.2 Old myocardial infarction; K21.9 Gastro-esophageal reflux disease without esophagitis; Z88.5 Allergy status to narcotic agent; Z91.018 Allergy to other foods; Z79.899 Other long term (current) drug therapy; Z79.82 Long term (current) use of aspirin
CPT/HCPCS: 99284

== ENCOUNTER 2018-08-31 09:36 | Emergency (ER) | payer MEDICAID ==
[2018-08-31] MEDS ORDERED: methylPREDNISolone Sodium Succinate 125 MG/2 ML SDV IVPUSH ONE (09:38)
[2018-08-31] MEDS ORDERED: diphenhydrAMINE 50 MG/ML SDV IVPUSH ONE (09:38)
[2018-08-31] MEDS ORDERED: Sodium Chloride 0.9% 1,000 ML IV SCH (09:45)
--- NOTE | 2018-08-31 09:45 | EDM.PDOC ---
ED HPI GENERAL MEDICAL PROBLEM - General Chief Complaint: Allergic Reaction Stated Complaint: [facility] Time Seen by Provider: 08/31/18 09:40 Source of Information: Reports: Patient History Limitations: Reports: No Limitations - History of Present Illness INITIAL COMMENTS - FREE TEXT/NARRATIVE: pt ate some candy with bannana flavoring in it this am. 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 She developed a sig reaction with wheezing, facial swelling and th feeling that her throat was closing. She was given .5 of epi in the ambulance and she hae had a dulo neb and a albuterol neb. She was much improved by the time she arrived. She did drop her bp at first but with fluids and the epi it got better. Onset: Today, Sudden Duration: Minutes: Location: Reports: Generalized Associated Symptoms: Reports: No Other Symptoms chest Pain Score (Numeric/FACES): 6 - Related Data Allergies Allergy/AdvReac Type Severity Reaction Status Date / Time banana Allergy Severe Anaphylactic Verified 08/31/18 09:42 Shock hydromorphone [From Dilaudid] Allergy Vomiting Verified 08/31/18 09:42 morphine AdvReac Vomiting Verified 08/31/18 09:42 Home Meds: Home Meds Gabapentin [Neurontin] 100 mg PO TID 04/10/16 [History] Methylphenidate HCl [Ritalin] 40 mg PO DAILY 04/10/16 [History] ARIPiprazole [Abilify] 5 mg PO DAILY 07/25/16 [History] Estradiol 0.5 mg PO DAILY 07/25/16 [History] buPROPion [Wellbutrin XL] 150 mg PO BID 07/25/16 [History] traZODone 50 mg PO BEDTIME PRN 07/25/16 [History] Nitroglycerin [Nitrostat] 0.3 mg SL ASDIRECTED PRN 02/08/17 [History] Aspirin [Adult Low Dose Aspirin EC] 81 mg PO DAILY 09/12/17 [History] Metoprolol Succinate [Toprol XL] 1 tab PO DAILY 01/26/18 [History] EPINEPHrine [Epinephrine] 0.15 mg IJ ASDIRECTED 08/31/18 [History] Past Medical History HEENT History: Reports: None Cardiovascular History: Reports: Angina, CAD, High Cholesterol, Hypertension, [place] , Other (See Below) Other Cardiovascular History: valve problems atrial Gastrointestinal History: Reports: Cholelithiasis, GERD Genitourinary History: Reports: None 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: Dysfunctional Uterine Bleeding, Musculoskeletal History: Reports: Fibromyalgia Neurological History: Reports: Migraines, MS Psychiatric History: Reports: ADD, ADHD, Anxiety, Depression Hematologic History: Reports: Other (See Below) Other Hematologic History: low WBCs unknown origin - Infectious Disease History Infectious Disease History: Reports: Chicken Pox - Past Surgical History HEENT Surgical History: Reports: None Cardiovascular Surgical History: Reports: None GI Surgical History: Reports: Cholecystectomy, Hernia Repair/Other, Other (See Below) Female Surgical History: Reports: Section, Hysterectomy Neurological Surgical History: Reports: None Musculoskeletal Surgical History: Reports: None Social & Family History - Family History Family Medical History: Noncontributory - Caffeine Use Caffeine Use: Reports: Soda - Living Situation & Occupation Living situation: Reports: Occupation: Employed ED ROS ALLERGIC REACTION - Review of Systems Review Of Systems: See Below Constitutional: Reports: No Symptoms HEENT: Reports: No Symptoms Respiratory: Reports: Shortness of Breath, Wheezing, Other ( feeling like her throat was closing) Cardiovascular: Reports: No Symptoms Endocrine: Reports: No Symptoms GI/Abdominal: Reports: No Symptoms : Reports: No Symptoms Musculoskeletal: Reports: No Symptoms Skin: Reports: No Symptoms Neurological: Reports: No Symptoms ED EXAM GENERAL NO PERIP PULSE - Physical Exam Exam: See Below Text/Narrative:: pt was alert and looking much more comfortable on arrival. She had a allergic reaction to some banna flavored candy. Exam Limited By: No Limitations General Appearance: Alert, Anxious, Mild Distress Ears: Normal TMs Throat/Mouth: Normal Inspection, Other ( slight facial swelling. ) Head: Atraumatic Neck: Normal Inspection Respiratory/Chest: Other (pt was breathing much easier. ) Cardiovascular: Regular Rate, Rhythm GI/Abdominal: Soft, Non-Tender (Female) Exam: Deferred Rectal (Female) Exam: Deferred Back Exam: Normal Inspection Extremities: Normal Inspection Neurological: Alert, Oriented, Normal Cognition Course - Vital Signs Last Recorded V/S: Last Vital Signs Temp 36.0 C 08/31/18 09:59 Pulse 86 08/31/18 09:59 Resp 14 08/31/18 09:59 BP 134/52 L 08/31/18 09:59 Pulse Ox 100 08/31/18 09:59 - Orders/Labs/Meds Orders: Active Orders 24 hr Category Date Time Status EKG Documentation Completion [RC] ASDIRECTED Care 08/31/18 10:14 Active Sodium Chloride 0.9% [Normal Saline] 1,000 ml Med 08/31/18 09:45 Active IV ASDIRECTED EKG 12 Lead [EK] Routine Ther 08/31/18 10:14 Ordered Medication Orders Sodium Chloride (Normal Saline) 1,000 mls @ 999 mls/hr IV ASDIRECTED DERICK Last Admin: 08/31/18 09:46 Dose: 999 mls/hr Labs: Laboratory Tests 08/31/18 Range/Units 10:32 Troponin I < 0.017 (0.000-0.056) ng/mL Meds: Medications Generic Name Dose Route Start Last Admin Trade Name Freq PRN Reason Stop Dose Admin Sodium Chloride 1,000 mls @ 999 mls/hr 08/31/18 09:45 08/31/18 09:46 Normal Saline IV 999 mls/hr ASDIRECTED DERICK Administration Discontinued Medications Generic Name Dose Route Start Last Admin Trade Name Freq PRN Reason Stop Dose Admin Diphenhydramine HCl 25 mg 08/31/18 09:38 08/31/18 09:48 Benadryl IVPUSH 08/31/18 09:39 25 mg ONETIME ONE Administration Lorazepam 0.5 mg 08/31/18 10:14 08/31/18 10:36 Ativan PO 08/31/18 10:15 0.5 mg ONETIME ONE Administration Methylprednisolone Sodium Succinate 125 mg 08/31/18 09:38 08/31/18 09:50 Solu-Medrol IVPUSH 08/31/18 09:39 125 mg ONETIME ONE Administration - Re-Assessments/Exams Free Text/Narrative Re-Assessment/Exam: 08/31/18 11:43 pt had some chest tihtness probavly from the reaction, Her ekg and trop were normal. She is feeling much better now Departure - Departure Time of Disposition: 11:44 Disposition: Home, Self-Care 01 Condition: Fair Clinical Impression: Allergic reaction - Discharge Information Referrals: PCP,None [Primary Care Provider] - Forms: ED Department Discharge Care Plan Goals: benadry 50 mg one more dose, no work today, epipen - My Orders Last 24 Hours: My Active Orders 08/31/18 09:45 Sodium Chloride 0.9% [Normal Saline] 1,000 ml IV ASDIRECTED 08/31/18 10:14 EKG Documentation Completion [RC] ASDIRECTED EKG 12 Lead [EK] Routine - Assessment/Plan Last 24 Hours: My Active Orders 08/31/18 09:45 Sodium Chloride 0.9% [Normal Saline] 1,000 ml IV ASDIRECTED 08/31/18 10:14 EKG Documentation Completion [RC] ASDIRECTED EKG 12 Lead [EK] Routine
[2018-08-31] MEDS ORDERED: LORazepam 0.5 MG Tab PO ONE (10:14)
[2018-08-31 11:50] VITALS: BP 108/54
== END 2018-08-31 11:59 | disposition home or self-care (01) ==
LOC: JP.ED 09:36
DX: T78.1XXA Other adverse food reactions, not elsewhere classified, initial encounter (principal); R06.2 Wheezing; I10 Essential (primary) hypertension; I25.10 Atherosclerotic heart disease of native coronary artery without angina pectoris; I25.2 Old myocardial infarction; F41.9 Anxiety disorder, unspecified; Z88.5 Allergy status to narcotic agent; Z79.82 Long term (current) use of aspirin; Z79.899 Other long term (current) drug therapy; Z90.49 Acquired absence of other specified parts of digestive tract; Z90.710 Acquired absence of both cervix and uterus
CPT/HCPCS: 36415; 84484; 93005; 96361; 96374; 96375; 99284; A9270; J1200; J2930; J7030

== ENCOUNTER 2019-06-10 20:33 | Emergency (ER) | payer SELFPAY ==
[2019-06-10 20:36] VITALS: BP 110/52; PULSE 66
--- NOTE | 2019-06-10 20:56 | EDM.PDOC ---
ED HPI GENERAL MEDICAL PROBLEM - General Chief Complaint: Syncope Stated Complaint: [facility] Time Seen by Provider: 06/10/19 20:45 Source of Information: Reports: Patient, EMS, Family History Limitations: Reports: No Limitations - History of Present Illness INITIAL COMMENTS - FREE TEXT/NARRATIVE: 49-year-old female with a history of mitral valve prolapse recurring syncope has done well over the past year but tonight was walking to a neighbor's house with her and felt lightheaded. He grabbed her and helped her to the ground and she had a significance syncopal episode. She did not get hurt. This one was more profound and longer lasting than any recent episodes so an ambulance was called. Glucose was 86, vitals were stable in route and she is feeling better. She has not seen a physician in almost a year and has not had any recent lab work. She has not been ill, no vomiting or diarrhea or fevers. Onset: Sudden Duration: Hour(s): (Within the last hour) Associated Symptoms: Reports: Malaise, Weakness. Denies: Fever/Chills, Headaches, Shortness of Breath - Related Data Allergies Allergy/AdvReac Type Severity Reaction Status Date / Time banana Allergy Severe Anaphylactic Verified 06/10/19 20:36 Shock hydromorphone [From Dilaudid] Allergy Vomiting Verified 06/10/19 20:36 kiwi Allergy Hives Verified 06/10/19 20:36 morphine AdvReac Vomiting Verified 06/10/19 20:36 Home Meds: Home Meds Gabapentin [Neurontin] 100 mg PO TID 04/10/16 [History] Methylphenidate HCl [Ritalin] 40 mg PO DAILY 04/10/16 [History] ARIPiprazole [Abilify] 5 mg PO DAILY 07/25/16 [History] Estradiol 0.5 mg PO DAILY 07/25/16 [History] buPROPion [Wellbutrin XL] 150 mg PO BID 07/25/16 [History] traZODone 50 mg PO BEDTIME PRN 07/25/16 [History] Nitroglycerin [Nitrostat] 0.3 mg SL ASDIRECTED PRN 02/08/17 [History] Aspirin [Adult Low Dose Aspirin EC] 81 mg PO DAILY 09/12/17 [History] Metoprolol Succinate [Toprol XL] 1 tab PO DAILY 01/26/18 [History] EPINEPHrine [Epinephrine] 0.15 mg IJ ASDIRECTED 08/31/18 [History] Past Medical History HEENT History: Reports: None Cardiovascular History: Reports: Angina, CAD, High Cholesterol, Hypertension, [place] , Syncope, Other (See Below) Other Cardiovascular History: valve problems atrial Gastrointestinal History: Reports: Cholelithiasis, GERD Genitourinary History: Reports: None 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: Dysfunctional Uterine Bleeding, Musculoskeletal History: Reports: Fibromyalgia Neurological History: Reports: Migraines, MS Psychiatric History: Reports: ADD, ADHD, Anxiety, Depression Hematologic History: Reports: Other (See Below) Other Hematologic History: low WBCs unknown origin - Infectious Disease History Infectious Disease History: Reports: Chicken Pox - Past Surgical History HEENT Surgical History: Reports: None Cardiovascular Surgical History: Reports: None GI Surgical History: Reports: Cholecystectomy, Hernia Repair/Other, Other (See Below) Female Surgical History: Reports: Section, Hysterectomy Neurological Surgical History: Reports: None Musculoskeletal Surgical History: Reports: None Social & Family History - Family History Family Medical History: Noncontributory - Tobacco Use Smoking Status *Q: Never Smoker - Caffeine Use Caffeine Use: Reports: Soda - Recreational Drug Use Recreational Drug Use: No - Living Situation & Occupation Living situation: Reports: Occupation: Employed ED ROS GENERAL - Review of Systems Review Of Systems: See Below Constitutional: Denies: Fever, Chills HEENT: Denies: Vision Change Respiratory: Denies: Shortness of Breath Cardiovascular: Reports: Syncope, Other (Known mitral valve prolapse). Denies: Chest Pain, Palpitations GI/Abdominal: Denies: Abdominal Pain, Nausea, Vomiting : Reports: No Symptoms Musculoskeletal: Reports: No Symptoms Skin: Reports: Pallor, Diaphoresis Neurological: Reports: Syncope, Weakness - Physical Exam Exam: See Below Exam Limited By: No Limitations General Appearance: Alert, No Apparent Distress Eye Exam: Bilateral Eye: Normal Inspection Head Exam: Atraumatic Neck: Supple Respiratory/Chest: Lungs Clear Cardiovascular: Regular Rate, Rhythm, Systolic Murmur (3/6) GI/Abdominal: Soft, Non-Tender Neuro Exam (Abbreviated): Alert, Oriented Extremities: Normal Inspection. No: Pedal Edema Psychiatric: Normal Affect, Normal Mood Skin Exam: Warm, Dry Course - Vital Signs Last Recorded V/S: Last Vital Signs Temp 97.9 F 06/10/19 20:34 Pulse 66 06/10/19 20:34 Resp 20 06/10/19 20:34 BP 110/52 L 06/10/19 20:34 Pulse Ox - Orders/Labs/Meds Labs: Laboratory Tests 06/10/19 06/10/19 Range/Units 21:05 21:05 WBC 5.0 (4.5-11.0) K/uL RBC 3.96 (3.30-5.50) M/uL Hgb 10.7 L (12.0-15.0) g/dL Hct 35.1 L (36.0-48.0) % MCV 89 (80-98) fL MCH 27 (27-31) pg MCHC 31 L (32-36) % Plt Count 285 (150-400) K/uL Neut % (Auto) 61 (36-66) % Lymph % (Auto) 25 (24-44) % [place] % (Auto) 11 H (2-6) % Eos % (Auto) 3 (2-4) % Baso % (Auto) 0 (0-1) % Sodium 143 (140-148) mmol/L Potassium 3.7 (3.6-5.2) mmol/L Chloride 107 (100-108) mmol/L Carbon Dioxide 28 (21-32) mmol/L Anion Gap 8.0 (5.0-14.0) mmol/L BUN 14 (7-18) mg/dL Creatinine 1.2 H (0.6-1.0) mg/dL Est Cr Clr Drug Dosing 58.46 mL/min Estimated GFR (MDRD) 48 L (>60) Glucose 102 (74-106) mg/dL Calcium 8.5 (8.5-10.1) mg/dL Total Bilirubin 0.3 (0.2-1.0) mg/dL AST 12 L (15-37) U/L ALT 15 (12-78) U/L Alkaline Phosphatase 113 (46-116) U/L Total Protein 7.7 (6.4-8.2) g/dL Albumin 2.8 L (3.4-5.0) g/dL Globulin 4.9 H (2.3-3.5) g/dL Albumin/Globulin Ratio 0.6 L (1.2-2.2) - Re-Assessments/Exams Free Text/Narrative Re-Assessment/Exam: 06/10/19 20:56 Patient was kept on cardiac monitoring, CBC and CMP were obtained. She is in a normal sinus rhythm with normal oxygen saturations and normal blood pressure. 06/10/19 21:32 Patient remained stable while waiting for lab results. CBC shows mild anemia at 10.7, CMP showed mildly elevated creatinine at 1.2 and GFR 48. However when comparing his levels to her past 2 years of labs, they were very typical. 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 No reason for hospitalization. Encouraged her to stay hydrated. Departure - Departure Time of Disposition: 21:45 Disposition: Home, Self-Care 01 Condition: Good Clinical Impression: Mitral valve prolapse, Syncope, cardiogenic - Discharge Information Instructions: Syncope, [id number] Referrals: PCP,None [Primary Care Provider] - Forms: ED Department Discharge Care Plan Goals: Continue your current medications, stay hydrated with plenty of water, and take your labs to your recheck appointment scheduled in the future. Return sooner if worsening or you develop other concerns.
== END 2019-06-10 21:45 | disposition home or self-care (01) ==
LOC: JP.ED 20:33
DX: R55 Syncope and collapse (principal); I34.1 Nonrheumatic mitral (valve) prolapse; I10 Essential (primary) hypertension; E78.00 Pure hypercholesterolemia, unspecified; I25.119 Atherosclerotic heart disease of native coronary artery with unspecified angina pectoris; I25.2 Old myocardial infarction; K21.9 Gastro-esophageal reflux disease without esophagitis; F41.9 Anxiety disorder, unspecified; F32.9 Major depressive disorder, single episode, unspecified; Z88.5 Allergy status to narcotic agent; Z91.018 Allergy to other foods; Z79.82 Long term (current) use of aspirin; Z79.899 Other long term (current) drug therapy
CPT/HCPCS: 36415; 80053; 85025; 99284

== ENCOUNTER 2019-09-12 20:44 | Emergency (ER) | payer MEDICAID ==
--- NOTE | 2019-09-12 21:23 | EDM.PDOC ---
ED HPI GENERAL MEDICAL PROBLEM - General Chief Complaint: Cardiovascular Problem Stated Complaint: [facility] Time Seen by Provider: 09/12/19 21:15 Source of Information: Reports: Patient, EMS, Family History Limitations: Reports: No Limitations - History of Present Illness INITIAL COMMENTS - FREE TEXT/NARRATIVE: Patient presents by ambulance from home after having a syncopal episode tonight. She had been in the bathroom apparently taking a bath or shower and as she walked out of the bathroom she told her she was feeling lightheaded and like she might faint. He rushed across the room and was able to catch her before she collapsed to the floor. He states that she was "out of it" for perhaps 30 seconds and that he called 911. Paramedics arrived and she had a decreased level of alertness. He had done a sternal rub on her which improved her alertness. Paramedics were told at that time that she felt a heaviness on her chest that she has a history of a prior myocardial infarction. An EKG was performed on the scene in no acute changes were seen. She then described continued chest heaviness and was given a single dose of nitroglycerin. Her chest heaviness reduced to a level of 4 and several minutes prior to arrival at this facility was given a second nitroglycerin dose which did not change her chest heaviness symptoms. She states that she has a bad heart valve and other longer standing heart issues. No recent changes in medications. She has felt fatigued for a long time and was seen for some of these symptoms on a previous visit here. Her primary care doctor is actually in [place], [place] and is familiar with her background for many years. She has seen local physicians. Many years ago, she was seen at [facility] for the syncopal episodes similar to what happened today. She estimates that was 10 or more years ago and does not recall details of that visit. She states she has had these syncopal spells since she was young and no one has found it a obvious source yet. Onset: Today, Sudden Quality: Reports: Pressure Severity: Moderate Improves with: Reports: Medication Worsens with: Reports: None Context: Reports: Activity 5 Pain Score (Numeric/FACES): 3 - Related Data Allergies Allergy/AdvReac Type Severity Reaction Status Date / Time banana Allergy Severe Anaphylactic Verified 09/12/19 21:06 Shock hydromorphone [From Dilaudid] Allergy Vomiting Verified 09/12/19 21:06 kiwi Allergy Hives Verified 09/12/19 21:06 morphine AdvReac Vomiting Verified 09/12/19 21:06 Home Meds: Home Meds Gabapentin [Neurontin] 100 mg PO TID 04/10/16 [History] Methylphenidate HCl [Ritalin] 40 mg PO DAILY 04/10/16 [History] ARIPiprazole [Abilify] 5 mg PO DAILY 07/25/16 [History] Estradiol 0.5 mg PO DAILY 07/25/16 [History] buPROPion [Wellbutrin XL] 150 mg PO BID 07/25/16 [History] traZODone 50 mg PO BEDTIME PRN 07/25/16 [History] Nitroglycerin [Nitrostat] 0.3 mg SL ASDIRECTED PRN 02/08/17 [History] Aspirin [Adult Low Dose Aspirin EC] 81 mg PO DAILY 09/12/17 [History] Metoprolol Succinate [Toprol XL] 1 tab PO DAILY 01/26/18 [History] EPINEPHrine [Epinephrine] 0.15 mg IJ ASDIRECTED 08/31/18 [History] Past Medical History HEENT History: Reports: None Cardiovascular History: Reports: Angina, CAD, High Cholesterol, Hypertension, [place] , Syncope, Other (See Below) Other Cardiovascular History: valve problems atrial Gastrointestinal History: Reports: Cholelithiasis, GERD Genitourinary History: Reports: None 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: Dysfunctional Uterine Bleeding, Musculoskeletal History: Reports: Fibromyalgia Neurological History: Reports: Migraines, MS Psychiatric History: Reports: ADD, ADHD, Anxiety, Depression Hematologic History: Reports: Other (See Below) Other Hematologic History: low WBCs unknown origin - Infectious Disease History Infectious Disease History: Reports: Chicken Pox - Past Surgical History HEENT Surgical History: Reports: None Cardiovascular Surgical History: Reports: None GI Surgical History: Reports: Cholecystectomy, Hernia Repair/Other, Other (See Below) Female Surgical History: Reports: Section, Hysterectomy Neurological Surgical History: Reports: None Musculoskeletal Surgical History: Reports: None Social & Family History - Family History Family Medical History: Noncontributory - Tobacco Use Smoking Status *Q: Never Smoker - Caffeine Use Caffeine Use: Reports: Soda - Living Situation & Occupation Living situation: Reports: Occupation: Employed ED ROS GENERAL - Review of Systems Review Of Systems: See Below Constitutional: Reports: Malaise, Fatigue. Denies: Fever, Chills HEENT: Reports: No Symptoms Respiratory: Reports: No Symptoms Cardiovascular: Reports: Chest Pain, Syncope Endocrine: Reports: Fatigue GI/Abdominal: Reports: No Symptoms : Reports: No Symptoms Musculoskeletal: Reports: No Symptoms ED EXAM, GENERAL - Physical Exam Exam: See Below Exam Limited By: Altered Mental Status (The patient answers questions in a delayed manner and almost seems to slur some of her words.) General Appearance: No Apparent Distress, Lethargic Head: Atraumatic Neck: Supple Respiratory/Chest: Lungs Clear, Normal Breath Sounds Cardiovascular: Regular Rate, Rhythm, Systolic Murmur GI/Abdominal: Soft, Non-Tender Psychiatric: Flat Affect EKG INTERPRETATION EKG Date: 09/12/19 Time: 21:50 Rhythm: NSR Rate (Beats/Min): 71 [place]: Normal P-Wave: Present QRS: Normal ST-T: Normal QT: Normal Course - Vital Signs Last Recorded V/S: Last Vital Signs Temp 35.9 C 09/12/19 21:16 Pulse 72 09/13/19 01:04 Resp 16 09/12/19 23:05 BP 120/64 09/13/19 01:04 Pulse Ox 96 09/12/19 23:05 - Orders/Labs/Meds Orders: Active Orders 24 hr Category Date Time Status EKG Documentation Completion [RC] ASDIRECTED Care 09/12/19 21:39 Active Ang Chest [CT] Stat Exams 09/13/19 01:19 Ordered Iopamidol [Isovue-370 (76%)] Med 09/13/19 01:30 Active 100 ml IV . DIRECTED Sodium Chloride 0.9% [Normal Saline] 100 ml Med 09/13/19 01:30 Active IV ASDIRECTED Sodium Chloride 0.9% [Saline Flush] Med 09/12/19 21:39 Active 10 ml FLUSH ASDIRECTED PRN Sodium Chloride 0.9% [Saline Flush] Med 09/13/19 01:30 Active 10 ml FLUSH ONETIME Saline Lock Insert [OM.PC] Routine Oth 09/12/19 21:39 Ordered EKG 12 Lead [EK] Routine Ther 09/12/19 21:39 Ordered Medication Orders Sodium Chloride (Normal Saline) 100 mls @ 4 mls/sec IV ASDIRECTED DERICK Last Admin: 09/13/19 01:38 Dose: 4 mls/sec Iopamidol (Isovue-370 (76%)) 100 ml IV . DIRECTED DERICK Last Admin: 09/13/19 01:38 Dose: 100 ml Sodium Chloride (Saline Flush) 10 ml FLUSH ASDIRECTED PRN PRN Reason: Keep Vein Open Sodium Chloride (Saline Flush) 10 ml FLUSH ONETIME DERICK Last Admin: 09/13/19 01:38 Dose: 10 ml Labs: Laboratory Tests 09/12/19 09/12/19 09/13/19 Range/Units 21:50 21:50 00:30 WBC 5.4 (4.5-11.0) K/uL RBC 3.90 (3.30-5.50) M/uL Hgb 10.8 L (12.0-15.0) g/dL Hct 35.2 L (36.0-48.0) % MCV 90 (80-98) fL MCH 28 (27-31) pg MCHC 31 L (32-36) % Plt Count 248 (150-400) K/uL Neut % (Auto) 67 H (36-66) % Lymph % (Auto) 19 L (24-44) % [place] % (Auto) 10 H (2-6) % Eos % (Auto) 4 (2-4) % Baso % (Auto) 0 (0-1) % ESR 56 H (0-25) mm/hr Sodium 141 (140-148) mmol/L Potassium 3.7 (3.6-5.2) mmol/L Chloride 105 (100-108) mmol/L Carbon Dioxide 28 (21-32) mmol/L Anion Gap 8.1 (5.0-14.0) mmol/L BUN 14 (7-18) mg/dL Creatinine 1.1 H (0.6-1.0) mg/dL Est Cr Clr Drug Dosing 63.78 mL/min Estimated GFR (MDRD) 53 L (>60) Glucose 100 (74-106) mg/dL Calcium 8.6 (8.5-10.1) mg/dL Total Bilirubin 0.2 (0.2-1.0) mg/dL AST 15 (15-37) U/L ALT 22 (12-78) U/L Alkaline Phosphatase 101 (46-116) U/L Troponin I < 0.017 (0.000-0.056) ng/mL C-Reactive Protein 1.21 H (0.0-0.3) mg/dL Total Protein 7.6 (6.4-8.2) g/dL Albumin 3.1 L (3.4-5.0) g/dL Globulin 4.5 H (2.3-3.5) g/dL Albumin/Globulin Ratio 0.7 L (1.2-2.2) Meds: Medications Generic Name Dose Route Start Last Admin Trade Name Freq PRN Reason Stop Dose Admin Sodium Chloride 100 mls @ 4 mls/sec 09/13/19 01:30 09/13/19 01:38 Normal Saline IV 4 mls/sec ASDIRECTED DERICK Administration Iopamidol 100 ml 09/13/19 01:30 09/13/19 01:38 Isovue-370 (76%) IV 100 ml . DIRECTED DERICK Administration Sodium Chloride 10 ml 09/12/19 21:39 Saline Flush FLUSH ASDIRECTED PRN Keep Vein Open Sodium Chloride 10 ml 09/13/19 01:30 09/13/19 01:38 Saline Flush FLUSH 10 ml ONETIME DERICK Administration Discontinued Medications Generic Name Dose Route Start Last Admin Trade Name Freq PRN Reason Stop Dose Admin Nitroglycerin 0.4 mg 09/12/19 22:30 09/12/19 22:37 Nitrostat SL 09/12/19 22:31 0.4 mg ONETIME ONE Administration - Radiology Interpretation Free Text/Narrative:: X-ray of chest ordered and reviewed by me shows a right sided pleural effusion which was present on plain chest imaging in 2018 as well. No acute findings are seen. - Re-Assessments/Exams Free Text/Narrative Re-Assessment/Exam: 09/13/19 01:58 The patient states seems relatively flat affect or unconcerned about her symptoms despite the events of this evening. She refers to her for answers to many of my questions. We will look at her for any obvious acute findings. Later, she still was describing chest pressure which was a 3 or 4 out of 10 intensity. She was given an additional dose of nitroglycerin which improved things slightly. Vital signs throughout this time remained stable. I returned later to review lab results which showed a normal troponin and CBC. Her CRP is elevated as is her sedimentation rate. Creatinine was 1.1 and GFR is 53. I discussed more of her history in detail and she states that she actually has been seen at [facility] cardiology department within the last 2 months. They did a stress test, echocardiogram, what sounds like a tilt table test and the patient states that she is not aware that they found anything significant other than her previously known valvular heart disease. She later makes her reference to a "floating clot" that was seen somewhere on her evaluation. She was treated with warfarin for some period of time but then changed to an alternate anticoagulant which she states she is still on. There is no anticoagulant listed among her current medications other than aspirin. She has worn a Holter monitor at several times including one for a 30 day time frame. She states that there was something seen in the results of the thirty- day monitor and that led to some additional testing. She states that [facility] discussed doing valve replacement or some other valvular procedure to improve her symptoms. Her understanding of her heart valve trouble is that the valve sticks and doesn't always completely open and that is what is giving her the lightheaded or syncopal symptoms. She is scheduled to be seen at the cardiology department again in several weeks. She has not been to her primary care provider recently. Her expresses frustration with the persistence of symptoms and the multitude of testing done. He thinks she needs a second opinion for her overall condition but I told him that I would not be the one to perform that or arrange it. Both the patient and her are also under the impression that her kidneys are seriously malfunctioning and they state that within the last month or 2 of visits in [place], several people told her that she might be on dialysis soon. In the context of a GFR in the mid 50s today , that would not be likely at all. Given everything else described tonight, I will do a CT angiogram of the chest to look for possible pulmonary emboli as a cryptic cause of syncope. 09/13/19 02:00 Departure - Departure Time of Disposition: 02:34 Disposition: Home, Self-Care 01 Condition: Good Clinical Impression: Syncope and collapse, Murmur, cardiac, Pleural effusion Referrals: PCP,None [Primary Care Provider] - Forms: ED Department Discharge Additional Instructions: No new obvious causes were seen for your symptoms tonight. Contact the [facility] cardiology clinic to ask about wearing another heart rate monitor prior to your upcoming appointment. Continue current medications although several of them have can cause significant sedation and that could be part of your fatigue. There was no evidence of blood clot formation in the lungs and the overall appearance of your chest x-ray and CAT scan of the chest were unchanged from previous imaging studies. Double check your medications at home to look for anything that may be a "blood thinner." Arrange to have the radiology images from today's visit forwarded to the appropriate [facility] location prior to your upcoming appointment. Return to ER if feeling worse in anyway but again no new obvious causes for your symptoms were found. Sepsis Event Note - Focused Exam Vital Signs: Vital Signs Temp Pulse Resp BP BP Pulse Ox 09/13/19 01:04 72 120/64 09/13/19 00:34 75 118/63 09/12/19 23:05 74 16 114/61 96 09/12/19 22:37 127/58 L 09/12/19 21:16 35.9 C 80 14 121/61 100 09/12/19 20:54 35.9 C 80 14 121/61 100 Date Exam was Performed: 09/13/19 Time Exam was Performed: 01:40 - My Orders Last 24 Hours: My Active Orders 09/12/19 21:39 EKG Documentation Completion [RC] ASDIRECTED Sodium Chloride 0.9% [Saline Flush] 10 ml FLUSH ASDIRECTED PRN Saline Lock Insert [OM.PC] Routine EKG 12 Lead [EK] Routine 09/13/19 01:19 Ang Chest [CT] Stat 09/13/19 01:30 Iopamidol [Isovue-370 (76%)] 100 ml IV . DIRECTED Sodium Chloride 0.9% [Normal Saline] 100 ml IV ASDIRECTED Sodium Chloride 0.9% [Saline Flush] 10 ml FLUSH ONETIME - Assessment/Plan Last 24 Hours: My Active Orders 09/12/19 21:39 EKG Documentation Completion [RC] ASDIRECTED Sodium Chloride 0.9% [Saline Flush] 10 ml FLUSH ASDIRECTED PRN Saline Lock Insert [OM.PC] Routine EKG 12 Lead [EK] Routine 09/13/19 01:19 Ang Chest [CT] Stat 09/13/19 01:30 Iopamidol [Isovue-370 (76%)] 100 ml IV . DIRECTED Sodium Chloride 0.9% [Normal Saline] 100 ml IV ASDIRECTED Sodium Chloride 0.9% [Saline Flush] 10 ml FLUSH ONETIME
[2019-09-12] MEDS ORDERED: Sodium Chloride 0.9% 10 ML Syringe FLUSH PRN (21:39)
--- NOTE | 2019-09-12 22:11 | CRLCR ---
INDICATION: Syncope. Chest heaviness. TECHNIQUE: Chest 2 views COMPARISON: November 18, 2017. FINDINGS: Cardiovascular and mediastinum: Heart size and vasculature are normal in caliber and appearance. Lungs and pleural spaces: Persisting chronic right-sided pleural effusion. Remainder of the lungs and pleural spaces are clear. No pneumothorax. Bones and soft tissues: No significant findings. IMPRESSION: Chronic right-sided pleural effusion is unchanged. Remainder of the chest is unremarkable. Dictated by Errol Joshi MD @ 09/12/2019 10:11:14 PM Dictated by: Errol Joshi MD @ 09/12/2019 22:11:24 (Electronically Signed)
[2019-09-12] MEDS ORDERED: Nitroglycerin 0.4 MG Tab.SL SL ONE (22:30)
[2019-09-13] MEDS ORDERED: Sodium Chloride 0.9% 10 ML Syringe FLUSH SCH (01:30)
[2019-09-13] MEDS ORDERED: Sodium Chloride 0.9% 100 ML IV SCH (01:30)
[2019-09-13] MEDS ORDERED: Iopamidol 755 Mg/ML 100 ML Bottle IV SCH (01:30)
[2019-09-13 01:34] VITALS: BP 120/64; PULSE 72
--- NOTE | 2019-09-13 02:17 | CRLCT ---
INDICATION: Syncope COMPARISON: CTA chest PE study 03/10/2017 TECHNIQUE: Contrast enhanced axial CT imaging through the chest, optimized for assessment of the pulmonary arterial tree. 100 mL Isovue 370 contrast agent was administered intravenously. Sagittal and coronal reconstructions are provided. FINDINGS: There is adequate opacification of the pulmonary arterial tree without evidence of thromboembolism. There is normal caliber of the main pulmonary artery. The heart is normal in size. There is no pericardial effusion. There is normal caliber of the thoracic aorta. There is no mediastinal lymphadenopathy. There is stable pleural thickening in the posterior right lower lobe with associated scattered calcifications. Adjacent focal atelectasis is not significantly changed. The left lung is clear. Small partially calcified subpleural nodules in the medial superior right lower lobe are also unchanged. Degenerative changes are noted in the thoracic spine. No significant abnormality is seen in the included upper abdomen. IMPRESSION: 1. No evidence of pulmonary thromboembolism. 2. Posterior right lower lobe pleural thickening with adjacent atelectasis, unchanged since 2017. Please note that all CT scans at this facility use dose modulation, iterative reconstruction, and/or weight-based dosing when appropriate to reduce radiation dose to as low as reasonably achievable. Dictated by Gonzalo Gunderson MD @ Sep 13 2019 2:07AM Signed by Dr. Gonzalo Gunderson @ Sep 13 2019 2:16AM
== END 2019-09-13 02:42 | disposition home or self-care (01) ==
LOC: JP.ED 20:44
DX: R55 Syncope and collapse (principal); R01.1 Cardiac murmur, unspecified; J90 Pleural effusion, not elsewhere classified; I25.2 Old myocardial infarction; I25.10 Atherosclerotic heart disease of native coronary artery without angina pectoris; E78.00 Pure hypercholesterolemia, unspecified; I10 Essential (primary) hypertension; K21.9 Gastro-esophageal reflux disease without esophagitis; F90.9 Attention-deficit hyperactivity disorder, unspecified type; F41.9 Anxiety disorder, unspecified; F32.9 Major depressive disorder, single episode, unspecified; Z79.899 Other long term (current) drug therapy; Z79.82 Long term (current) use of aspirin; Z86.79 Personal history of other diseases of the circulatory system; Z88.5 Allergy status to narcotic agent; Z91.018 Allergy to other foods
CPT/HCPCS: 36415; 71046; 71275; 80053; 84484; 85025; 85651; 86140; 93005; 99285; 99285-25; A9270-GY; J7050; Q9967

== ENCOUNTER 2019-11-05 16:54 | Emergency (ER) | payer MEDICAID ==
--- NOTE | 2019-11-05 17:27 | EDM.PDOC ---
ED HPI GENERAL MEDICAL PROBLEM - General Chief Complaint: Behavioral/Psych Stated Complaint: MEDICAL VIA NORTH Time Seen by Provider: 11/05/19 17:21 Source of Information: Reports: Patient History Limitations: Reports: No Limitations - History of Present Illness INITIAL COMMENTS - FREE TEXT/NARRATIVE: pt passed out at home. Her 2 daughters were having a disagreement and the pt got upset and she passed out. This has happened many times to her. Onset: Sudden Duration: Hour(s): Location: Reports: Chest Quality: Reports: Other (pt does nopt recall ) Associated Symptoms: Reports: Cough, Other (pt passed out and did fall to the ground. She hasdone this many times. ) Headache Pain Score (Numeric/FACES): 6 - Related Data Allergies Allergy/AdvReac Type Severity Reaction Status Date / Time banana Allergy Severe Anaphylactic Verified 11/05/19 17:00 Shock hydromorphone [From Dilaudid] Allergy Vomiting Verified 11/05/19 17:00 kiwi Allergy Hives Verified 11/05/19 17:00 morphine AdvReac Vomiting Verified 11/05/19 17:00 Home Meds: Home Meds Gabapentin [Neurontin] 100 mg PO TID 04/10/16 [History] Methylphenidate HCl [Ritalin] 40 mg PO DAILY 04/10/16 [History] ARIPiprazole [Abilify] 5 mg PO DAILY 07/25/16 [History] Estradiol 0.5 mg PO DAILY 07/25/16 [History] buPROPion [Wellbutrin XL] 150 mg PO BID 07/25/16 [History] traZODone 50 mg PO BEDTIME PRN 07/25/16 [History] Nitroglycerin [Nitrostat] 0.3 mg SL ASDIRECTED PRN 02/08/17 [History] Aspirin [Adult Low Dose Aspirin EC] 81 mg PO DAILY 09/12/17 [History] Metoprolol Succinate [Toprol XL] 1 tab PO DAILY 01/26/18 [History] EPINEPHrine [Epinephrine] 0.15 mg IJ ASDIRECTED 08/31/18 [History] Past Medical History HEENT History: Reports: None Cardiovascular History: Reports: Angina, CAD, High Cholesterol, Hypertension, [place] , Syncope, Other (See Below) Other Cardiovascular History: valve problems atrial Gastrointestinal History: Reports: Cholelithiasis, GERD Genitourinary History: Reports: None 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: Dysfunctional Uterine Bleeding, Musculoskeletal History: Reports: Fibromyalgia Neurological History: Reports: Migraines, MS Psychiatric History: Reports: ADD, ADHD, Anxiety, Depression Hematologic History: Reports: Other (See Below) Other Hematologic History: low WBCs unknown origin - Infectious Disease History Infectious Disease History: Reports: Chicken Pox - Past Surgical History HEENT Surgical History: Reports: None Cardiovascular Surgical History: Reports: None GI Surgical History: Reports: Cholecystectomy, Hernia Repair/Other, Other (See Below) Female Surgical History: Reports: Section, Hysterectomy Neurological Surgical History: Reports: None Musculoskeletal Surgical History: Reports: None Social & Family History - Family History Family Medical History: Noncontributory - Tobacco Use Smoking Status *Q: Never Smoker - Caffeine Use Caffeine Use: Reports: Tea - Recreational Drug Use Recreational Drug Use: No - Living Situation & Occupation Living situation: Reports: Occupation: Employed ED ROS GENERAL - Review of Systems Review Of Systems: See Below Constitutional: Reports: Other ( syncope) HEENT: Reports: No Symptoms Respiratory: Reports: No Symptoms Cardiovascular: Reports: No Symptoms Endocrine: Reports: No Symptoms GI/Abdominal: Reports: No Symptoms : Reports: Hematuria Musculoskeletal: Reports: No Symptoms Neurological: Reports: Syncope ED EXAM, NEURO - Physical Exam Exam: See Below Text/Narrative:: pt arrived with a history of passing out at home. Her daughters were arguing and she started breathing rapidly and passed out. This usually happens when she is upset. Exam Limited By: No Limitations General Appearance: Alert, No Apparent Distress, Anxious, Other (pupils are equal and reactive. ) Ears: Normal TMs Nose: Normal Inspection Throat/Mouth: Normal Inspection Head Exam: Atraumatic Respiratory/Chest: No Respiratory Distress Cardiovascular: Regular Rate, Rhythm GI/Abdominal: Soft, Non-Tender (Female) Exam: Deferred Rectal (Female) Exam: Deferred Neurological: Alert, Oriented x 3 Back Exam: Normal Inspection Extremities: Normal Inspection Psychiatric: Anxious Course - Vital Signs Last Recorded V/S: Last Vital Signs Temp 36.3 C 11/05/19 17:05 Pulse 73 11/05/19 17:54 Resp 13 11/05/19 17:54 BP 114/54 L 11/05/19 17:54 Pulse Ox 99 11/05/19 17:54 - Orders/Labs/Meds Labs: Laboratory Tests 11/05/19 11/05/19 11/05/19 Range/Units 17:32 17:32 17:32 WBC 6.3 (4.5-11.0) K/uL RBC 3.92 (3.30-5.50) M/uL Hgb 11.1 L (12.0-15.0) g/dL Hct 36.0 (36.0-48.0) % MCV 92 (80-98) fL MCH 28 (27-31) pg MCHC 31 L (32-36) % Plt Count 245 (150-400) K/uL Neut % (Auto) 63 (36-66) % Lymph % (Auto) 24 (24-44) % [place] % (Auto) 9 H (2-6) % Eos % (Auto) 4 (2-4) % Baso % (Auto) 0 (0-1) % Sodium 142 (140-148) mmol/L Potassium 4.2 (3.6-5.2) mmol/L Chloride 106 (100-108) mmol/L Carbon Dioxide 29 (21-32) mmol/L Anion Gap 7.1 (5.0-14.0) mmol/L BUN 18 (7-18) mg/dL Creatinine 1.2 H (0.6-1.0) mg/dL Est Cr Clr Drug Dosing 60.57 mL/min Estimated GFR (MDRD) 48 L (>60) Glucose 101 (74-106) mg/dL Calcium 8.2 L (8.5-10.1) mg/dL Iron (50-170) ug/dL TIBC (250-450) ug/dl % Saturation (20-55) % Total Bilirubin 0.2 (0.2-1.0) mg/dL AST 11 L (15-37) U/L ALT 23 (12-78) U/L Alkaline Phosphatase 104 (46-116) U/L Troponin I < 0.017 (0.000-0.056) ng/mL Total Protein 7.3 (6.4-8.2) g/dL Albumin 2.9 L (3.4-5.0) g/dL Globulin 4.4 H (2.3-3.5) g/dL Albumin/Globulin Ratio 0.7 L (1.2-2.2) Urine Color (YELLOW) Urine Appearance (CLEAR) Urine pH (5.0-8.0) Ur Specific [place] (1.008-1.030) Urine Protein (NEGATIVE) mg/dL Urine Glucose (UA) (NEGATIVE) mg/dL Urine Ketones (NEGATIVE) mg/dL Urine Occult Blood (NEGATIVE) Urine Nitrite (NEGATIVE) Urine Bilirubin (NEGATIVE) Urine Urobilinogen (0.2-1.0) EU/dL Ur Leukocyte Esterase (NEGATIVE) Urine RBC (0-5) Urine WBC (0-5) Ur Epithelial Cells Amorphous Sediment Urine Bacteria Urine Mucus Urine Other 11/05/19 11/05/19 Range/Units 17:40 18:13 WBC (4.5-11.0) K/uL RBC (3.30-5.50) M/uL Hgb (12.0-15.0) g/dL Hct (36.0-48.0) % MCV (80-98) fL MCH (27-31) pg MCHC (32-36) % Plt Count (150-400) K/uL Neut % (Auto) (36-66) % Lymph % (Auto) (24-44) % [place] % (Auto) (2-6) % Eos % (Auto) (2-4) % Baso % (Auto) (0-1) % Sodium (140-148) mmol/L Potassium (3.6-5.2) mmol/L Chloride (100-108) mmol/L Carbon Dioxide (21-32) mmol/L Anion Gap (5.0-14.0) mmol/L BUN (7-18) mg/dL Creatinine (0.6-1.0) mg/dL Est Cr Clr Drug Dosing mL/min Estimated GFR (MDRD) (>60) Glucose (74-106) mg/dL Calcium (8.5-10.1) mg/dL Iron 36 L (50-170) ug/dL TIBC 293 (250-450) ug/dl % Saturation 12 L (20-55) % Total Bilirubin (0.2-1.0) mg/dL AST (15-37) U/L ALT (12-78) U/L Alkaline Phosphatase (46-116) U/L Troponin I (0.000-0.056) ng/mL Total Protein (6.4-8.2) g/dL Albumin (3.4-5.0) g/dL Globulin (2.3-3.5) g/dL Albumin/Globulin Ratio (1.2-2.2) Urine Color Yellow (YELLOW) Urine Appearance Cloudy A (CLEAR) Urine pH 6.0 (5.0-8.0) Ur Specific [place] 1.025 (1.008-1.030) Urine Protein Negative (NEGATIVE) mg/dL Urine Glucose (UA) Negative (NEGATIVE) mg/dL Urine Ketones Negative (NEGATIVE) mg/dL Urine Occult Blood Small H (NEGATIVE) Urine Nitrite Negative (NEGATIVE) Urine Bilirubin Negative (NEGATIVE) Urine Urobilinogen 0.2 (0.2-1.0) EU/dL Ur Leukocyte Esterase Negative (NEGATIVE) Urine RBC 0-5 (0-5) Urine WBC 0-5 (0-5) Ur Epithelial Cells Moderate Amorphous Sediment Not seen Urine Bacteria Moderate Urine Mucus Moderate Urine Other Meds: Medications Discontinued Medications Generic Name Dose Route Start Last Admin Trade Name Freq PRN Reason Stop Dose Admin Acetaminophen 650 mg 11/05/19 17:31 11/05/19 17:49 Tylenol PO 11/05/19 17:32 650 mg NOW ONE Administration Sodium Chloride 1,000 mls @ 999 mls/hr 11/05/19 18:15 11/05/19 18:14 Normal Saline IV 999 mls/hr ASDIRECTED DERICK Administration Ketorolac Tromethamine 30 mg 11/05/19 17:59 Toradol IVPUSH 11/05/19 18:00 ONETIME ONE - Re-Assessments/Exams Free Text/Narrative Re-Assessment/Exam: 11/05/19 17:55 pt has normal hydration. She has a mild anemia. she is feeling much better. She has nor recall of the incident. 11/05/19 18:12 pt is dehydrated and has a fair amount of bacteria in the urine. The urine was cultured and she will be given a liter of fluid. Departure - Departure Time of Disposition: 17:55 Disposition: Home, Self-Care 01 Condition: Fair Clinical Impression: Syncope - Discharge Information Instructions: Syncope, [id number] Referrals: PCP,None [Primary Care Provider] - Forms: ED Department Discharge Care Plan Goals: push fluids, continue same meds, high iron foods. Sepsis Event Note - Evaluation Sepsis Screening Result: No Definite Risk - Focused Exam Date Exam was Performed: 11/09/19 Time Exam was Performed: 07:35
[2019-11-05] MEDS ORDERED: Acetaminophen 325 MG Tab PO ONE (17:31)
[2019-11-05 17:55] VITALS: BP 114/54; PULSE 73
[2019-11-05] MEDS ORDERED: Ketorolac 30 MG/ML SDV IVPUSH ONE (17:59)
[2019-11-05] MEDS ORDERED: Sodium Chloride 0.9% 1,000 ML IV SCH (18:15)
== END 2019-11-05 19:26 | disposition home or self-care (01) ==
LOC: JP.ED 16:54
DX: R55 Syncope and collapse (principal); D64.9 Anemia, unspecified; I25.10 Atherosclerotic heart disease of native coronary artery without angina pectoris; E78.00 Pure hypercholesterolemia, unspecified; I10 Essential (primary) hypertension; I25.2 Old myocardial infarction; K21.9 Gastro-esophageal reflux disease without esophagitis; Z91.018 Allergy to other foods; Z88.5 Allergy status to narcotic agent; Z79.899 Other long term (current) drug therapy; Z79.82 Long term (current) use of aspirin
CPT/HCPCS: 36415; 80053; 81001; 83550; 84484; 85025; 87086; 93005; 99284; A9270; J7030

== ENCOUNTER 2020-09-26 19:46 | Emergency (ER) | payer MEDICAID ==
[2020-09-26 20:41] VITALS: BP 130/65
--- NOTE | 2020-09-26 20:56 | EDM.PDOC ---
ED HPI GENERAL MEDICAL PROBLEM - General Chief Complaint: Respiratory Problem Stated Complaint: SOB,CHEST PAIN Time Seen by Provider: 09/26/20 20:47 Source of Information: Reports: Patient, Family, RN Notes Reviewed History Limitations: Reports: No Limitations - History of Present Illness INITIAL COMMENTS - FREE TEXT/NARRATIVE: 50-year-old female presents emergency department a complaint of chest pain, she has had chest pain intermittently on and off for the last 48 hours, does feel short of breath at times no nausea no vomiting no diaphoresis does have a strong family history of coronary artery disease Father's first myocardial infarction age 50 brothers had a myocardial infarction at as well. She has had a stress test and echocardiogram done at the [place] but no catheterization Chest Pain Score (Numeric/FACES): 3 - Related Data Allergies Allergy/AdvReac Type Severity Reaction Status Date / Time banana Allergy Severe Anaphylactic Verified 09/26/20 20:31 Shock hydromorphone [From Dilaudid] Allergy Vomiting Verified 09/26/20 20:31 kiwi Allergy Hives Verified 09/26/20 20:31 morphine AdvReac Vomiting Verified 09/26/20 20:31 Home Meds: Home Meds Gabapentin [Neurontin] 100 mg PO TID PRN 04/10/16 [History] Methylphenidate HCl [Ritalin] 40 mg PO DAILY 04/10/16 [History] Estradiol 2 mg PO DAILY 07/25/16 [History] buPROPion [Wellbutrin XL] 150 mg PO BID 07/25/16 [History] Nitroglycerin [Nitrostat] 0.3 mg SL ASDIRECTED PRN 02/08/17 [History] Aspirin [Adult Low Dose Aspirin EC] 81 mg PO DAILY 09/12/17 [History] EPINEPHrine [Epinephrine] 0.15 mg IJ ASDIRECTED PRN 08/31/18 [History] Past Medical History Cardiovascular History: Reports: Angina, High Cholesterol, Hypertension, Syncope, Other (See Below) Other Cardiovascular History: valve problems atrial Gastrointestinal History: Reports: Cholelithiasis, GERD 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 Female Surgical History: Reports: Section, Hysterectomy Neurological Surgical History: Reports: None Social & Family History - Family History Family Medical History: No Pertinent Family History - Tobacco Use Tobacco Use Status *Q: Never Tobacco User Second Hand Smoke Exposure: No - Caffeine Use Caffeine Use: Reports: Soda - Recreational Drug Use Recreational Drug Use: No - Living Situation & Occupation Living situation: Reports: Occupation: Employed ED ROS GENERAL - Review of Systems Review Of Systems: See Below Constitutional: Reports: No Symptoms HEENT: Reports: No Symptoms Respiratory: Reports: Shortness of Breath Cardiovascular: Reports: Chest Pain, Dyspnea on Exertion GI/Abdominal: Reports: No Symptoms ED EXAM, GENERAL - Physical Exam Exam: See Below Exam Limited By: No Limitations General Appearance: Alert, WD/WN, No Apparent Distress Respiratory/Chest: No Respiratory Distress, Lungs Clear, Normal Breath Sounds, No Accessory Muscle Use, Chest Non-Tender Cardiovascular: Regular Rate, Rhythm, No Murmur GI/Abdominal: Soft, Non-Tender Course - Vital Signs Last Recorded V/S: Last Vital Signs Temp 97.7 F 09/26/20 20:42 Pulse 76 09/26/20 21:51 Resp 10 L 09/26/20 21:51 BP 130/65 09/26/20 21:51 Pulse Ox 100 09/26/20 21:51 - Orders/Labs/Meds Orders: Active Orders 24 hr Category Date Time Status Cardiac Monitoring [RC] .As Directed Care 09/26/20 20:54 Active EKG Documentation Completion [RC] ASDIRECTED Care 09/26/20 20:54 Active Chest 2V [CR] Stat Exams 09/26/20 20:54 Taken EKG 12 Lead [EK] Stat Ther 09/26/20 20:54 Ordered Labs: Laboratory Tests 09/26/20 09/26/20 Range/Units 21:04 21:09 WBC 5.7 (4.5-11.0) K/uL RBC 3.91 (3.30-5.50) M/uL Hgb 11.3 L (12.0-15.0) g/dL Hct 36.5 (36.0-48.0) % MCV 93 (80-98) fL MCH 29 (27-31) pg MCHC 31 L (32-36) % Plt Count 238 (150-400) K/uL Neut % (Auto) 64 (36-66) % Lymph % (Auto) 22 L (24-44) % [place] % (Auto) 10 H (2-6) % Eos % (Auto) 4 (2-4) % Baso % (Auto) 0 (0-1) % Sodium 141 (140-148) mmol/L Potassium 4.4 (3.6-5.2) mmol/L Chloride 105 (100-108) mmol/L Carbon Dioxide 26 (21-32) mmol/L Anion Gap 10.1 (5.0-14.0) mmol/L BUN 18 (7-18) mg/dL Creatinine 1.4 H (0.6-1.0) mg/dL Est Cr Clr Drug Dosing 49.57 mL/min Estimated GFR (MDRD) 40 L (>60) Glucose 89 (74-106) mg/dL Calcium 8.8 (8.5-10.1) mg/dL Total Bilirubin 0.3 (0.2-1.0) mg/dL AST 12 L (15-37) U/L ALT 15 (12-78) U/L Alkaline Phosphatase 89 (46-116) U/L Troponin I < 0.017 (0.000-0.056) ng/mL Total Protein 7.5 (6.4-8.2) g/dL Albumin 3.1 L (3.4-5.0) g/dL Globulin 4.4 H (2.3-3.5) g/dL Albumin/Globulin Ratio 0.7 L (1.2-2.2) Departure - Departure Time of Disposition: 22:04 Disposition: Home, Self-Care 01 Condition: Fair Clinical Impression: Atypical chest pain Instructions: Nonspecific Chest Pain, Adult, [id number] Referrals: PCP,None [Primary Care Provider] - Forms: ED Department Discharge Additional Instructions: Try Tylenol or Motrin as needed for pain control, please followup with your primary care provider in 3-5 days if not better, please call return to the emergency department with worsening of symptoms. Sepsis Event Note (ED) - Evaluation Sepsis Screening Result: No Definite Risk - Focused Exam Vital Signs: Vital Signs Temp Pulse Resp BP Pulse Ox 09/26/20 21:51 76 10 L 130/65 100 09/26/20 20:42 97.7 F 70 11 L 130/65 100 09/26/20 20:41 70 11 L 130/65 100 09/26/20 20:25 97.7 F 74 16 136/73 100 - My Orders Last 24 Hours: My Active Orders 09/26/20 20:54 Cardiac Monitoring [RC] .As Directed EKG Documentation Completion [RC] ASDIRECTED Chest 2V [CR] Stat EKG 12 Lead [EK] Stat - Assessment/Plan Last 24 Hours: My Active Orders 09/26/20 20:54 Cardiac Monitoring [RC] .As Directed EKG Documentation Completion [RC] ASDIRECTED Chest 2V [CR] Stat EKG 12 Lead [EK] Stat Plan: Assessment Acuity = acute Site and laterality = atypical chest pain Etiology = unknown Manifestations = none Location of injury = Home Lab values = CBC unremarkable creatinine elevated 1.4 consistent chronic renal failure stage G3 B troponin is negative, chest x-ray shows no acute process official read radiologist pending EKG demonstrates a sinus rhythm there is no ST elevations or depressions no T wave inversions Plan I did review EKG chest x-ray results with her as well as her lab work she is can follow-up with her primary care next 3 to 5 days for evaluation return to the emergency department worsening of symptoms try Tylenol or Motrin This note was dictated using [employer] voice recognition software please call with any questions on syntax or grammar.
[2020-09-26 21:51] VITALS: PULSE 76
--- NOTE | 2020-09-27 08:52 | CR ---
CHEST: 2 view CLINICAL HISTORY:Chest pain COMPARISON:CT 09/13/2019 FINDINGS: There is blunting the right costophrenic angle which is similar to the 2020 study. Lungs are generally emphysematous. The heart size, pulmonary vascularity and hilar structures are normal. No infiltrate effusion or pneumothorax is seen. IMPRESSION: No acute cardiopulmonary process Hyperaeration with chronic lung field changes
== END 2020-09-26 22:14 | disposition home or self-care (01) ==
LOC: JP.ED 19:46
DX: R07.89 Other chest pain (principal); I10 Essential (primary) hypertension; G35 Multiple sclerosis; Z79.82 Long term (current) use of aspirin; Z91.018 Allergy to other foods; Z88.5 Allergy status to narcotic agent; Z79.899 Other long term (current) drug therapy
CPT/HCPCS: 36415; 71046; 71046-26; 80053; 84484; 85025; 93005; 93010; 99284; 99285-25

== ENCOUNTER 2022-10-09 12:13 | Emergency (ER) | payer MEDICAID ==
[2022-10-09] MEDS ORDERED: Sodium Chloride 0.9% 10 ML Syringe FLUSH PRN (12:42)
[2022-10-09] MEDS ORDERED: Lactated Ringers 1,000 ML IV SCH (12:45)
[2022-10-09] MEDS ORDERED: Prochlorperazine 10 MG/2 ML SDV IVPUSH ONE (12:48)
[2022-10-09 13:34] LABS: ESTIMATED GFR 50 mL/min (>60)
[2022-10-09 14:20] VITALS: BP 121/65; PULSE 97
== END 2022-10-09 14:24 | disposition home or self-care (01) ==
LOC: JP.ED 12:13
DX: K52.9 Noninfective gastroenteritis and colitis, unspecified (principal); I10 Essential (primary) hypertension; Z91.018 Allergy to other foods; Z88.5 Allergy status to narcotic agent; Z79.899 Other long term (current) drug therapy
CPT/HCPCS: 36415; 80053; 81001; 83605; 83690; 84484; 85025; 96361; 96374; 99284; J0780; J3490; J7120

== ENCOUNTER 2024-06-29 01:13 | Emergency (ER) | payer MEDICAID ==
[2024-06-29 01:49] VITALS: BP 147/105; PULSE 89
[2024-06-29 01:49] LABS: BASOPHILS ABSOLUTE AUTO 0.03 K/uL (0.00-0.10); BASOPHILS PERCENT AUTO 0.7 % (0.1-1.3); EOSINOPHILS ABSOLUTE AUTO 0.19 K/uL (0.00-0.40); EOSINOPHILS PERCENT AUTO 4.1 % (0.0-5.4); HEMATOCRIT 34.3 % (34.3-46.0); HEMOGLOBIN 11.5 g/dL (11.2-15.5); IMMATURE GRAN ABSOLUTE AUTO 0.01 K/uL (0.00-0.23); IMMATURE GRAN PERCENT AUTO 0.2 % (0.0-0.7); LYMPHOCYTES ABSOLUTE AUTO 1.39 K/uL (0.8-3.3); LYMPHOCYTES PERCENT AUTO 30.3 % (11.4-47.7); MEAN CORPUSCULAR HGB CONC 33.5 g/dL (31.6-35.5); MEAN CORPUSCULAR VOLUME 92.5 fL (81.4-99.0); MONOCYTES ABSOLUTE AUTO 0.42 K/uL (0.20-0.90); MONOCYTES PERCENT AUTO 9.2 % (3.3-12.6); NEUTROPHILS ABSOLUTE AUTO 2.55 K/uL (1.0-7.6); NEUTROPHILS PERCENT AUTO 55.5 % (40.0-78.1); PLATELET COUNT,PLT 211 K/uL (130-375); RED BLOOD CELL COUNT 3.71 M/uL (3.77-5.24); WHITE BLOOD CELL COUNT,WBC 4.6 K/uL (3.2-11.0)
[2024-06-29 01:57] LABS: PROTHROMBIN TIME 10.6 sec (9.2-10.6); PTT,PARTIAL THROMBOPLSTIN TIME 28.4 sec (21.8-27.3)
[2024-06-29] MEDS: Sodium Chloride 0.9% 1,000 ML IV SCH (01:58)
[2024-06-29] MEDS: Pantoprazole 40 MG Vial IVPUSH ONE (01:58)
[2024-06-29] MEDS: Sodium Chloride 0.9% 10 ML Syringe FLUSH PRN (01:58)
[2024-06-29 01:59] LABS: A/G RATIO 0.8 (1.2-2.2); ALANINE AMINOTRANSFERASE,ALT 24 U/L (12-78); ALBUMIN 3.6 g/dL (3.4-5.0); ALKALINE PHOSPHATASE 87 U/L (46-116); ASPARTATE AMNIOTRANSFERASE,AST 17 U/L (15-37); BILIRUBIN TOTAL 0.2 mg/dL (0.2-1.0); BLOOD UREA NITROGEN,BUN 23 mg/dL (7-18); CALCIUM 9.1 mg/dL (8.5-10.1); CARBON DIOXIDE,CO2 28 mmol/L (21-32); CHLORIDE,CL 104 mmol/L (100-108); CREATININE 1.5 mg/dL (0.6-1.0); EST CRCL DRUG DOSING (CG) 44.26 mL/min; ESTIMATED GFR 42 mL/min (>60); GLUCOSE RANDOM 108 mg/dL (74-106); POTASSIUM,K 3.8 mmol/L (3.6-5.2); PROTEIN TOTAL,TP 7.9 g/dL (6.4-8.2); SODIUM,NA 143 mmol/L (140-148)
[2024-06-29] MEDS: droPERidol 5 MG/2 ML SDV IVPUSH ONE (02:25)
== END 2024-06-29 04:46 | disposition home or self-care (01) ==
LOC: JP.ED 01:13
DX: K92.0 Hematemesis (principal); I10 Essential (primary) hypertension; Z86.16 Personal history of COVID-19; Z90.49 Acquired absence of other specified parts of digestive tract; Z90.710 Acquired absence of both cervix and uterus; Z79.82 Long term (current) use of aspirin; Z79.899 Other long term (current) drug therapy; Z91.018 Allergy to other foods; Z88.5 Allergy status to narcotic agent
CPT/HCPCS: 36415; 80053; 85018; 85025; 85610; 85730; 96361; 96374; 96375; 99284; 99284-25; J1790; J2470; J3490; J7030